=== PATIENT | male | born 1950 | race Caucasian/White ===

== ENCOUNTER 2020-04-26 12:05 | Outpatient (REF) | payer MEDICARE, SELFPAY ==
[2020-04-26 13:14] LABS: MANUAL DIFF FLAG NO
[2020-04-26 13:19] LABS: Basophils Absolute Auto 0.1 X10*3/uL (0.0-0.2); Basophils Percent Auto 0.9 % (0-2); Eosinophils Absolute Auto 0.5 X10*3/uL (0.0-0.4); Eosinophils Percent Auto 6.8 % (0-4); Hematocrit 44.6 % (42-52); Imm Gran Abs Auto 0.01 X10*3/uL (0.00-0.03); Imm Gran Pct Auto 0.2 % (0.0-0.4); Lymphocytes Absolute Auto 1.5 X10*3/uL (1.2-4.9); Lymphocytes Percent Auto 22.6 % (20-40); Mean Corpuscular HGB Conc 33.6 g/dl (31.0-36.0); Mean Corpuscular Hemoglobin 31.3 pg (27.0-33.0); Mean Corpuscular Volume 93.1 fL (80-98); Monocytes Absolute Auto 0.5 X10*3/uL (0.1-1.2); Monocytes Percent Auto 7.3 % (2-11); Neutrophils Absolute Auto 4.1 X10*3/uL (2.0-8.3); Neutrophils Percent Auto 62.2 % (45-73); Platelet Count 198 X10*3/uL (160-400); Red Blood Count 4.79 X10*6/uL (4.60-5.80); Red Cell Distribution Width 12.5 % (11.0-16.0); White Blood Count 6.6 X10*3/uL (4.8-10.8)
[2020-04-26 13:35] LABS: Glucose Urine UA NEG (NEG); Leukocyte Esterase Urine NEG (NEG); Nitrite Urine NEG (NEG); Specific Gravity - Urine 1.025 (1.005-1.025); Urine Blood NEG (NEG); Urine Ketones NEG (NEG); Urine Protein NEG (NEG-TRACE)
[2020-04-26 13:38] LABS: Appearance Urine CLEAR; Color Urine YELLOW
[2020-04-26 14:23] LABS: Folate 17.5 ng/mL (> or = 4.0); Vitamin B12 421 pg/mL (200-900)
[2020-04-26 15:09] LABS: Alanine Aminotransferase 15 U/L (0-40); Albumin Level 4.5 g/dL (3.5-5.0); Alkaline Phosphatase 77 U/L (39-117); Anion Gap 14 (12-20); Aspartate Amino Transferase 21 U/L (5-37); Bilirubin Total 0.6 mg/dL (0.0-1.0); Blood Urea Nitrogen 9 mg/dL (9-16); Calcium 9.3 mg/dL (8.4-10.2); Carbon Dioxide 28 mmol/L (22-29); Chloride 106 mmol/L (96-108); Cholesterol 151 mg/dL; Estimated Glomerular Filt Rate > 60; Glucose Fasting 95 mg/dL (60-99); HDL Cholesterol 54 mg/dL; LDL Cholesterol Calculated 82 mg/dl; Magnesium 1.9 mg/dL (1.6-2.6); Potassium 5.5 mmol/l (3.3-5.1); Sodium 142 mmol/L (135-145); Total Protein 6.9 g/dL (6.5-8.0); Triglycerides 76 mg/dL
[2020-04-26 15:30] LABS: Prostate Specific Antigen Scr 1.44 ng/mL (<0.05-4.0); TSH reflex Free T4 1.42 mIU/mL (0.32-4.0)
== END 2020-04-26 12:06 | disposition home or self-care (01) ==
LOC: HO.LAB 12:05
PROVIDERS: PCP Internal Medicine; Visit Provider Internal Medicine
DX: Z00.00 Encounter for general adult medical examination without abnormal findings (principal); R19.7 Diarrhea, unspecified; E78.00 Pure hypercholesterolemia, unspecified; Z86.79 Personal history of other diseases of the circulatory system; F10.20 Alcohol dependence, uncomplicated; Z12.5 Encounter for screening for malignant neoplasm of prostate
CPT/HCPCS: 36415; 80053; 80061; 81003; 82607; 82746; 83735; 84153; 84443; 85025

== ENCOUNTER 2020-05-02 07:42 | Outpatient (REF) | payer MEDICARE, SELFPAY ==
[2020-05-06 15:47] LABS: Vitamin B6 17.2 ng/mL (2.1-21.7)
[2020-05-08 06:47] LABS: Vitamin B1 9 nmol/L (8-30)
== END 2020-05-02 07:43 | disposition home or self-care (01) ==
LOC: HO.LAB 07:42
PROVIDERS: Visit Provider Internal Medicine
DX: F10.20 Alcohol dependence, uncomplicated (principal)
CPT/HCPCS: 36415; 84207; 84425

== ENCOUNTER → 2020-06-07 13:39 | Outpatient (REF) | payer MEDICARE, SELFPAY ==
--- NOTE | 2020-06-07 13:43 | CA_ITS ---
Transthoracic Echocardiogram Patient (Last, First, Middle): Fuad Robins E Gender: Male Date of : 1950 Age: 70 Procedure Date: 06/07/2020 Procedure Type: Transthoracic Echocardiogram Location: OP Height: 185.42 cm Weight: 95.26 kg BSA: 2.20 m2 Heart Rate: bpm BP: 120 / 80 mmHg Referring MD: Nahum Rodriges MD Symptoms: Z86.79 - Personal history of other diseases of the circulatory system Study Quality: Fair ECG Rhythm: Sinus Conclusions: - The left ventricular systolic function is low normal. The visually estimated ejection fraction is between 50-55%. - Normal right ventricular cavity size and systolic function. - There is mild dilatation of the sinuses of Valsalva and mild dilatation of the ascending aorta. Findings Left Ventricle Normal left ventricular cavity size. There is normal left ventricular wall thickness. The left ventricular systolic function is low normal. The visually estimated ejection fraction is between 50-55%. There is no evidence of regional wall motion abnormalities. Diastolic function is normal for age. Right Ventricle Normal right ventricular cavity size and systolic function. Atria Both atria are normal in size. There is no evidence of interatrial shunt by color Doppler. Aortic Valve There is a normal trileaflet aortic valve. There is no aortic valve stenosis. There is no aortic valve regurgitation. Mitral Valve Normal mitral valve structure and function. There is no mitral valve regurgitation. There is no mitral valve stenosis. Pulmonic Valve The pulmonic valve is likely normal. Tricuspid Valve Normal tricuspid valve structure and function. There is no tricuspid valve regurgitation. Normal right atrial pressure. There is no evidence of pulmonary hypertension. Great Vessels There is mild dilatation of the sinuses of Valsalva and mild dilatation of the ascending aorta. The visualized portions of the pulmonary artery and branches are normal. Venous The inferior vena cava is normal in size and collapses greater than 50% with inspiration. Pericardium/Pleural There is no evidence of pericardial effusion. Prior Study Comparison No prior study available for comparison. Measurements M-Mode Liner Measurements Normals - Women/Men AOV Cusps: 2.80 1.5-2.6 cm/m2 2D Linear Measurements IVSd: 1.04 0.6-0.9/0.6-1.0 cm LVIDd: 5.39 3.9-5.3/4.2-5.9 cm LVIDd Index: 2.45 2.4-3.2/2.2-3.1 cm/m2 LVIDs: 2.74 2.0-3.6 cm LVPWd: 1.02 0.7-1.1 cm Ao Root: 4.20 2.1-3.5 cm LA Diam: 3.40 2.7-3.8/3.0-4.0 cm LAIDs Index: 1.55 1.5-2.3 cm/m2 LV Mass: 267.18 67-162/88-224 g LV Mass Index: 121.44 43-95/49-115 g/m2 LVOT Diam: 2.60 3.0+(-)1.3 cm 2D Systolic Function EF 4C: 57.90 >55% EF 2C: 58.00 >55% EF BiP: 58.30 >55% Mitral Valve MV Pk E: 0.64 MV PK A: 0.69 MV Decel Time: 239.00 E/A: 0.90 E'Lateral: 9.03 E'Medial: 6.31 E/E' Med: 10.10 E/E' Lat: 7.10 PHT: 70.00 MVA PHT: 3.14 Decel [place]: 2.67 Aortic Valve AoV Pk Hossein: 1.04 AoV Pk Grad: 4.00 LVOT LVOT Pk Hossein: 0.81 LVOT Mn Hossein: 0.61 LVOT VTI: 0.16 LVOT Pk Grad: 3.00 LVOT Mn Grad: 2.00 LVOT Diam: 2.60 LVOT Area: 5.31 Diastolic Function MV Pk E: 0.64 MV Pk A: 0.69 E/A: 0.90 E'Medial: 6.31 E/E' Med: 10.10 E' Laterial: 9.03 E/E' Lat: 7.10 Tricuspid Valve TR Pk Hossein: 1.94 TR Pk Grad: 15.00 RA Press: 3.00 RVSP: 18.00 Great Vessels Aorta Ao Root-2D: 4.20 2.0-3.7 cm Sinus of Valsalva: 4.20 2.0-3.5 cm Ao Asc: 3.30 2.1-3.4 cm Ao Arch: 2.60 Pulmonary Valve PV Pk Hossein: 0.66 Peak PV Grad: 2.00 Updated in Other Vendor System with Status of Final [place] MD electronically signed on 06/09/2020 1:40:12 PM with status of Final
== END ==
LOC: HO.CARD 13:39
PROVIDERS: PCP Internal Medicine; Visit Provider Internal Medicine
DX: Z86.79 Personal history of other diseases of the circulatory system (principal)
CPT/HCPCS: 93306

== ENCOUNTER 2020-07-02 13:42 | Outpatient (REF) | payer MEDICARE, SELFPAY ==
[2020-07-02 14:46] LABS: CDIFF Ag Negative (Negative); CDIFF Internal ctrl Dots and bkg OK (V); CDiff Toxin Negative (Negative)
[2020-07-02 16:29] LABS: Leukocytes Stool Qualitative NEGATIVE (NEGATIVE)
== END 2020-07-02 13:43 | disposition home or self-care (01) ==
LOC: HO.LNP 13:42
PROVIDERS: Visit Provider Internal Medicine
DX: R19.7 Diarrhea, unspecified (principal); Z86.79 Personal history of other diseases of the circulatory system
CPT/HCPCS: 87045; 87046; 87177; 87209; 87324; 87449; 89055

== ENCOUNTER 2020-09-02 10:04 | Outpatient (REF) | payer MEDICARE, SELFPAY ==
--- NOTE | ~2020-09-02 | XR_ITS ---
EXAMINATION: XR KNEE, RIGHT CLINICAL INFORMATION: Degenerative changes. COMPARISON: None TECHNIQUE: AP and lateral of the right knee. FINDINGS: There is no fracture or dislocation or destructive process. Chondrocalcinosis involves both the medial lateral menisci. There is no focal joint narrowing or erosive change. There is small suprapatellar effusion. Hoffa's fat pad appears normal. There is spurring at the quadriceps insertion patella and at the insertion patella tendon. The deep infrapatellar recess is preserved. XR/XR knee RT 2V IMPRESSION: 1. Meniscal chondrocalcinosis. Small suprapatellar effusion. 2. Spurring extensor mechanism, origin quadriceps tendon and insertion patella tendon.
[2020-09-02 10:59] LABS: MANUAL DIFF FLAG NO
[2020-09-02 11:14] LABS: Basophils Percent Auto 0.4 % (0-2); Eosinophils Absolute Auto 0.3 X10*3/uL (0.0-0.4); Eosinophils Percent Auto 4.6 % (0-4); Hemoglobin 15.1 g/dl (14.0-18.0); Imm Gran Abs Auto 0.01 X10*3/uL (0.00-0.03); Imm Gran Pct Auto 0.1 % (0.0-0.4); Lymphocytes Absolute Auto 2.3 X10*3/uL (1.2-4.9); Lymphocytes Percent Auto 31.3 % (20-40); Mean Corpuscular HGB Conc 33.6 g/dl (31.0-36.0); Mean Corpuscular Hemoglobin 30.7 pg (27.0-33.0); Mean Corpuscular Volume 91.5 fL (80-98); Monocytes Absolute Auto 0.7 X10*3/uL (0.1-1.2); Monocytes Percent Auto 9.6 % (2-11); Neutrophils Absolute Auto 3.9 X10*3/uL (2.0-8.3); Platelet Count 206 X10*3/uL (160-400); Red Blood Count 4.92 X10*6/uL (4.60-5.80); Red Cell Distribution Width 13.2 % (11.0-16.0); White Blood Count 7.2 X10*3/uL (4.8-10.8)
[2020-09-02 11:31] LABS: Glucose Urine UA NEG (NEG); Leukocyte Esterase Urine NEG (NEG); Nitrite Urine NEG (NEG); PH 5.5 (5.0-8.0); Specific Gravity - Urine >= 1.030 (1.005-1.025); Urine Blood NEG (NEG); Urine Ketones NEG (NEG); Urine Protein NEG (NEG-TRACE)
[2020-09-02 11:32] LABS: Alanine Aminotransferase 29 U/L (0-40); Albumin Level 4.6 g/dL (3.5-5.0); Alkaline Phosphatase 86 U/L (39-117); Anion Gap 13 (12-20); Aspartate Amino Transferase 30 U/L (5-37); Bilirubin Total 0.8 mg/dL (0.0-1.0); Blood Urea Nitrogen 10 mg/dL (9-16); Calcium 9.6 mg/dL (8.4-10.2); Carbon Dioxide 25 mmol/L (22-29); Chloride 107 mmol/L (96-108); Cholesterol 165 mg/dL; Estimated Glomerular Filt Rate > 60; Glucose Random 100 mg/dL (60-115); HDL Cholesterol 54 mg/dL; LDL Cholesterol Calculated 89 mg/dl; Potassium 5.2 mmol/L (3.3-5.1); Sodium 140 mmol/L (135-145); Triglycerides 111 mg/dL
[2020-09-02 11:46] LABS: Free T4 (Free Thyroxine) 0.86 ng/dL (0.71-1.85); Prostate Specific Antigen Scr 1.37 ng/mL (<0.05-4.0); Thyroid Stimulating Hormone 2.19 uIU/mL (0.32-4.0)
[2020-09-02 11:52] LABS: Appearance Urine CLEAR; Color Urine YELLOW
[2020-09-02 12:06] LABS: Folate 13.1 ng/mL (> or = 4.0); Vitamin B12 308 pg/mL (200-900)
[2020-09-02 12:13] LABS: Mucus Urine 2+ /LPF; RBC Urine 0-2 /HPF (0); WBC Urine 0-2 /HPF (0-4)
== END 2020-09-02 10:05 | disposition home or self-care (01) ==
LOC: HO.XRAY 10:04
PROVIDERS: PCP Internal Medicine; Visit Provider Internal Medicine
DX: R39.198 Other difficulties with micturition (principal); E78.00 Pure hypercholesterolemia, unspecified; Z86.79 Personal history of other diseases of the circulatory system
CPT/HCPCS: 36415; 73560; 80053; 80061; 81001; 82607; 82746; 84153; 84439; 84443; 85025

== ENCOUNTER → 2020-09-18 10:49 | Outpatient (BNVA) | payer MEDICARE, SELFPAY | PROVIDERS: PCP Internal Medicine; Visit Provider Orthopaedic Surgery | DX: M22.2X1 Patellofemoral disorders, right knee (principal) | CPT/HCPCS: 99202 ==

== ENCOUNTER 2021-01-09 09:54 | Outpatient (REF) | payer MEDICARE, SELFPAY ==
[2021-01-09 11:03] LABS: Appearance Urine CLEAR; Color Urine YELLOW; Glucose Urine UA NEG (NEG); Leukocyte Esterase Urine NEG (NEG); Nitrite Urine NEG (NEG); Specific Gravity - Urine 1.015 (1.005-1.025); Urine Blood NEG (NEG); Urine Ketones NEG (NEG); Urine Protein NEG (NEG-TRACE)
[2021-01-09 12:17] LABS: RBC Urine 0-2 /HPF (0); WBC Urine 0-2 /HPF (0-4)
[2021-01-09 12:18] LABS: Mucus Urine 1+ /LPF
== END 2021-01-09 09:55 | disposition home or self-care (01) ==
LOC: HO.LAB 09:54
PROVIDERS: PCP Internal Medicine; Visit Provider Internal Medicine
DX: L30.9 Dermatitis, unspecified (principal)
CPT/HCPCS: 81001

== ENCOUNTER 2021-02-18 09:33 | Outpatient (REF) | payer MEDICARE, SELFPAY ==
[2021-02-18 11:23] LABS: C Reactive Protein 0.03 mg/dL (< or = 0.50)
[2021-02-20 12:16] LABS: Gliadin Deamidated IgA Ab <1.0 U/mL; Gliadin Deamidated IgG Ab <1.0 U/mL
[2021-02-20 14:01] LABS: Transglutaminase Ab IgG <1.0 U/mL; Transglutaminase IgA <1.0 U/mL
== END 2021-02-18 09:34 | disposition home or self-care (01) ==
LOC: HO.LAB 09:33
PROVIDERS: PCP Internal Medicine; Referring Provider Internal Medicine; Visit Provider Nurse Practitioner
DX: R19.7 Diarrhea, unspecified (principal); R13.11 Dysphagia, oral phase
CPT/HCPCS: 36415; 83516; 86003; 86140; 99202

== ENCOUNTER 2021-03-05 10:50 | Outpatient (REF) | payer MEDICARE, SELFPAY ==
--- NOTE | ~2021-03-05 | US_ITS ---
EXAMINATION: US PELVIS LIMITED (BLADDER) CLINICAL INFORMATION: Dermatitis, unspecified. COMPARISON: None TECHNIQUE: Real-time imaging of the bladder. FINDINGS: BLADDER: Well distended and normal. Bilateral ureteral jets are demonstrated. Prevoid bladder volume is 186.9 mL. Postvoid bladder volume is 115.4 mL. ADDITIONAL FINDINGS: Prostate volume is normal measuring 12.2 cm. US/US bladder IMPRESSION: Large postvoid residual volume. Normal bilateral ureteral jets. The prostate volume is normal.
== END 2021-03-05 10:51 | disposition home or self-care (01) ==
LOC: HO.US 10:50
PROVIDERS: PCP Internal Medicine; Visit Provider Internal Medicine
DX: L30.9 Dermatitis, unspecified (principal)
CPT/HCPCS: 76857

== ENCOUNTER 2021-05-23 11:00 | Outpatient (RCR) | payer MEDICARE, SELFPAY ==
--- NOTE | 2021-05-16 13:49 | MHC.PT.OD ---
[facility] [place] [facility] [place] [facility] [address] Carolyn Heredia [address] [phone] F: [phone] F: [phone] F: [phone] F: [phone] Physical Therapy Daily Note Diagnosis: PT eval and treat; Unspecified thoracic, thoracolumbar and lumbosacral intervetebral disc disorder signed by Fareed Perry PA-C signed on 02/15/21 [ End ] Date of Surgery: Date of Evaluation: 04/21/21 Date of Treatment: 05/16/21 Treatments to Date: 6 Cancellations to Date: No Shows to Date: Authorized Visits: Insurance End Date: Precautions/ Contraindications:hx cervical fusion Subjective: I woke up with electrifying pain, I notice it when I take a deep breath in the morning. Up until then I thought I was making progress with therapy. Pain Score and Location: Objective Flowsheet: Tests & Measures Exercises Review of cat,child pose, R trunk flexion, figure four for L sidebending/rotation, seated L sidebend stretch for L Lumbar stretches reviewed with patient, good carryover shown, Completed Standing rows, bilateral shoudler extension, lat pulldown with green band x 2 sets 10R with core tuck/core recruitment, emphasis on hip hip hinge functional squat with 3 sets hold x 2 sets 10R. Pt remains challenged with hip hinge- denies sx with activity in office today Education re: lumbar towel roll support for chair Ergonomic set up for desk revviewed feet on ground ENcouragement for walking/moving frequently Encouraged trial of prone lying>prone on elbow Sensation intact. Rocktape applied to R>Llumbar paraspinals (two I strips) Three additional I strips from medial>lateral at site of QL in effort to increase tissue extensibility. Modalities Prone for MHP combo with Select TENS unit lumbar setting intensity 6.0 mA applied to R lumbar region in effort to increase tissue extensbility/reduce mm tension at start of session. Educated in potential ability to obtain for home use- if (+) response. Prone for continuous US 1.5 mart cm2 x 8 minutes 1 MHZ to R QL/ R lumbar region in effort to increase tissue extensibility/reduce pain. Assessment: Pt has attended 6 sessions of PT to date. Pt expressing some improvement with implement of lumbar and trunk stretches however pt expressing sx remain worse in AM hours, I woke up and it was excruciating pain. 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 He has been trialed with treatments TENS, manual therapy, US (first time today), taping, and stretching/strengthening/auto body mechanic education. Pt may benefit from xray ?OA/DJD as he has expressed ongoing sx despite implementing stretching program. He was encouraged to increase frequency of stretching to 2x/ daily states has only been performing 1x daily despite education given to staggered activity through the day. Pt expressing ongoing chronic daily diarrhea and reports limited relief with pain medication. He expresses sx worsening with deep breathing and coughing mostly on R lower quadrant but sometimes expresses bilaterally. He was advised to make a follow up appt with Dr. Alexander's office due to his level of frustration with current status. He has been educated re: today's plan to encourage follow up with effort to continue PT, increasing compliance with stretching program. Pt educated sx of mm tightness will not improve with stretching once, requires repeated consistent program to make gains. He denies sx radiating down the buttocks, leg, (-) SLR sx. Appears to be managing therex in the office during appointments with good tolerance but does verbalize severe sx impacting him first thing in AM the medication helps some. He has been encouraged to trial gentle flexibility program in AM prior to attempting to standing up. Thank you for your referral. 05/09/21 Pt expressing persistent sx which are are noted to be present despite trial of stretching. New stretches added today. 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 Pt verbalized, I can tell I need to stretch more. Due to persistent sx, pt trialed in prone lying with prone press up progression with good tolerance. Pt also trialed in mechanical lumbar traction (no previous hx lumbar or thoracic surgery, HNP sx at time of injury) to ease ongoing R sided lumbar sx due to persistent nature, mechanism of injury, and length of sx. Issued prone lying and prone press up for HEP option. 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 Pt expressing initially had severe pain in his back a few months ago, stating much improvement overall since onset. 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 Pt exhibits signs and sx consistent with a R sided improving lumbar strain. Pt exhibits decreased flexibility of HS, impaired length of trunk extensors in both thoracic and lumbar regions. Pt lacks core stabilization/flexibility program and demonstrated challenge of functional squat technique when initially screened for movement analysis. Pt exhibits (+) prone instability testing and is an excellent candidate for implementing a lumbar/hip stabilization and flexibility program. Today he expresses central lower neck pain at base of C7 but his AROM is functional in nature which he states is improving since onset (hx cervical fusion). He was initiated in written HEP program SL trunk rotation, LBTR, and gentle open books in SL stretches with good tolerance. He was educated re: the log roll technique and advised to begin initiation of abdominal recruitment with movement patterns. [ End ] PT Plan: Trial increasing frequency of home program for flexibility, encouraged follow up with PCP office Dr. Alexander Short Term Goals: 1. Reduce back pain by 25%. (Met but inconsistently) 2. Initiate good carryover of proper body mechanics. 3. Initiate flexibility program for spine/hips. (Met) 4. Demonstrate log roll technique and golfer's lift. [employer] Clerk Goals: 1. Reduce back pain by 50%. 2. I HEP for flexibility/strengthening program. 3. Demonstrate good functional squat technique and mechanics. 4. Resume coaching/recreational activities MOD I. [ End ] Electronically signed by: Sonia Acevedo PT, DPT
== END 2021-10-31 13:39 | disposition home or self-care (01) ==
LOC: HO.PTWFD 11:00
PROVIDERS: PCP Internal Medicine; Visit Provider Physician Assistant
DX: M51.9 Unspecified thoracic, thoracolumbar and lumbosacral intervertebral disc disorder (principal)
CPT/HCPCS: 97012; 97014; 97035; 97110; 97140; 97161; 97530; 97535

== ENCOUNTER 2021-05-28 14:07 | Outpatient (REF) | payer MEDICARE, SELFPAY ==
--- NOTE | ~2021-05-28 | FL_ITS ---
EXAMINATION: XR BARIUM SWALLOW CLINICAL INFORMATION: Dysphasia COMPARISON: None TECHNIQUE: Modified barium swallow with speech pathologist FINDINGS: Patient swallowed multiple consistencies from thin liquid to barium coated cookie. There was no evidence of nasopharyngeal reflux or tracheal aspiration. FLUOROSCOPY TIME: 1.5 minutes DOSE AREA PRODUCT: 1.689 Gy-cm2 (rayo-centimeter squared) FL/FL barium swallow modified IMPRESSION: Unremarkable examination. Please refer to speech pathology report for details.
--- NOTE | 2021-05-30 13:18 | MHC.SL.IMP ---
Date of Plan of Treatment: 05/28/21 Onset of Symptoms/Illness: 05/28/91 Date Treatment Started: 05/28/21 Admitting Diagnosis: Comorbidities: Alcoholism Anxiety Decreased urine stream Dysuria Eczema GERD Atrial fibrillation Skin cancer Insomnia Intermittent diarrhea Knee pain- right Nail abnormality Overweight Pure hypercholesterolemia SURGICAL HX: Bunionectomy of left great toe Status post cervical spinal fusion Status post repair of ventral hernia Primary Speech & Language Diagnosis: R13.12 Oropharyngeal Phase Dysphagia Reason for Today's Visit: 93934 Modified Barium Swallow Study Pre-evaluation Dietary Consistencies: Regular Pre-evaluation Liquid Consistency: Thin Pre-evaluation Medication Administration: Whole with Liquid Medical History: Modified Barium Swallow Study Fluoroscopic Evaluation of Swallowing Function CPT Code 30386 Evaluation Year: 2021 Reason for Study: Patient reports globus sensation. Referring Physician: Ale Núñez NP Evaluating Clinician: Simran Colon MA, CCC-COO Study Number: 1 Patient Name: Fuad Robins Status: Outpatient, Ambulatory Age: 71 Gender: Male MEDICAL HISTORY: Year of Onset or Diagnosis: 2021 Comorbidities: Alcoholism Anxiety Decreased urine stream Dysuria Eczema GERD Atrial fibrillation Skin cancer Insomnia Intermittent diarrhea Knee pain- right Nail abnormality Overweight Pure hypercholesterolemia SURGICAL HX: Bunionectomy of left great toe Status post cervical spinal fusion Status post repair of ventral hernia Current (pre-evaluation) Intake/Diet: Route: PO Diet Grade: Regular Liquid Consistencies: Thin Pre-Study Functional Oral Intake Scale (FOIS): 7- Total oral intake with no restrictions Pain: None reported at time of study SUBJECTIVE: Patient is a 71 year old male who attended this exam unaccompanied. Patient had recent appointment with G.I. specialist- He complained of dysphagia, which has persisted ?many decades.? He describes food getting stuck at sternal notch. He reports that this happens exclusively when eating steak with cream sauce. The sensation can persist for 30-40 minutes and at times, he coughs food back up. He reports, ?Sometimes drinking liquids to force it down makes it worse.? Patient denies pain, but states that this is uncomfortable. He reports onset 30 years ago. Oral Motor Exam Facial Symmetry: Symmetrical Mouth Occlusion: Normal Oral-Facial Teeth Characteristics: Intact/Normal Oral-Facial Lip Pucker Description: Normal Oral-Facial Smile (Lips) Description: Normal Oral-Facial Puff Cheeks Description: Normal Tongue Size: Normal Tongue Excursion Description: Normal Tongue Range of Movement Description: Normal Tongue Speed of Movement Description: Normal Tongue Strength of Movement (against opposing pressure): Normal Tongue Movement Characteristics: Normal/Absent Is patient able to manage secretions?: Yes Food and Liquid Trials: Oral Impairment: Lip Closure: Did not test Oral Impairment: Tongue Control During Bolus Hold: 2=Posterior escape of less than half of bolus Oral Impairment: Bolus Preparation/Mastication: Oral Impairment: Bolus Transport/Lingual Motion: 0=Brisk tongue motion Oral Impairment: Oral Residue: 0=Complete oral clearance Oral Impairment:Initiation of Pharyngeal Swallow: 3=Bolus head in pyriforms Pharyngeal Impairment: Soft Palate Elevation: 0=No bolus between soft palate (SP)/pharyngeal wall (PW) Pharyngeal Impairment: Laryngeal Elevation: 0=Complete superior movement of thyroid cartilage (see description) Pharyngeal Impairment: Anterior Hyoid Excursion: 0=Complete anterior movement Pharyngeal Impairment: Epiglottic Movement: 0=Complete inversion Pharyngeal Impairment: Laryngeal Vestibular Closure:: 1=Incomplete: narrow column air/contrast in laryngeal vestibule Pharyngeal Impairment: Pharyngeal Stripping Wave: 0=Present: complete Pharyngeal Impairment: Pharyngeal Contraction: Did not test Pharyngeal Impairment: Pharyngoesophageal Segment Openin=Complete distension and complete duration: no obstruction of flow Pharyngeal Impairment: Tongue Base (TB) Retraction: 2=Narrow column of contrast/air between TB and posterior PW Pharyngeal Impairment: Pharyngeal Residue: 1=Trace residue within or on pharyngeal structures Pharyngeal Impairment: Esophageal Clearance Upright Position: Did not test Impressions and Recommendations Clinical Observations: OBJECTIVE: Time-out: performed at 02:45 Evaluation Start: 02:30; Stop: 02:40 Patient Positioning: Seated 70-90 degrees Viewing Planes: LATERAL ONLY Contrast: MBSImP? Standardized Protocol using commercially prepared, standardized Barium viscosities, including: Varibar? THIN LIQUID (40% w/v, <15 cps) , 1/2 Shortbread Cookie (1 x1 x.25 ) MBSImP ID: [id number] MBSImP Results: Lip closure for intraoral bolus containment could not be assessed due to logistical reasons not related to physiologic impairment. Tongue control during bolus hold resulted in posterior escape of less than half of the bolus. Bolus preparation and mastication resulted in timely and efficient chewing and mashing. Bolus transport/lingual motion was with brisk tongue motion. Oral residue was not observed. There was complete oral clearance. Initiation of the pharyngeal swallow occurred when the bolus head was in the pyriform sinuses. Soft palate elevation resulted in no bolus between the soft palate and the pharyngeal wall. Laryngeal elevation demonstrated complete superior movement of the thyroid cartilage with complete approximation of the arytenoids to the epiglottic petiole. Anterior hyoid excursion demonstrated complete anterior movement. Epiglottic movement resulted in complete inversion. Laryngeal vestibular closure was incomplete, with a narrow column of air/contrast noted within the laryngeal vestibule at the height of the swallow. Pharyngeal stripping wave was present and complete. Pharyngeal contraction could not be determined due to logistical reasons not related to physiologic impairment. Pharyngoesophageal segment opening was completely distended for complete duration with no obstruction of bolus flow. Tongue base retraction allowed a narrow column of contrast or air between the retracted tongue base and the posterior pharyngeal wall. Pharyngeal residue was a trace within or on pharyngeal structures. Esophageal clearance in the upright position could not be assessed due to logistical reasons not related to physiologic impairment. Oral Impairment Score: 5 (absence of score, component 1) Pharyngeal Impairment Score: 3 (absence of score, component 13) Esophageal Impairment Score: --- (absence of score, component 17) Laryngeal Penetration and Aspiration: Flash penetration- contrast coated posterior surface of epiglottis during one instance while taking chain sips of thin barium Structural Abnormalities Noted: Cervical Hardware noted, but had no functional significance. ASSESSMENT: Clinician Assessment: This exam was conducted by a multidisciplinary team which included auto electrical technician, radiologist, and speech-language pathologist. Patient was seated in chair at optimal 90 degree position for lateral view only. Patient trialed the following liquid and solid consistencies: 5 mL thin liquid barium, individual cup sip with bolus hold thin liquid barium, sequential cup sip thin liquid barium, pureed solid (mixture applesauce with barium paste), ground solid (mixture chicken salad with barium paste), and regular solid (Coral Doone cookie coated with barium paste). Note premature posterior escape of trace amount liquid, which pooled in valleculae and did not enter airway. Timely and efficient mastication, with complete oral recollection. Brisk anterior-posterior lingual transit of bolus. Delayed pharyngeal swallow trigger. No nasopharyngeal reflux. Complete superior movement of thyroid cartilage with complete anterior hyoid movement and complete epiglottic inversion. Note one instance contrast coated posterior surface of epiglottis when patient took quick chain sips of liquid. No evidence of tracheal aspiration with solids and liquids. Complete pharyngeal stripping wave. No obstruction of flow through pharyngoesophageal segment opening. Trace residue in valleculae and pyriform sinuses. Noted cervical hardware, which did not appear to have functional significance during this exam. Liquid Intake Recommendation: Thin Liquid Intake Strategies: Small Sips Dietary Recommendations: Regular Medication Administration: Whole with Liquid Compensatory Strategies Recommended: Sitting Upright (90 deg) Small Bites and Sips Rate of Ingestion Change Supervision during eating and or drinking: None Needed Recommendation for Speech Therapy: NA:Typical Evaluation PLAN: Intake Recommendations: Route: PO Diet Grade: Regular Liquid Consistencies: Thin Post-Study Functional Oral Intake Scale (FOIS): 7- Total oral intake with no restrictions Recommend patient to continue unmodified diet REGULAR solids/THIN liquids, pills WHOLE with liquid. Patient may consider avoiding food causing him trouble (i.e. steak). Recommend f/u with Gastroenterology. Therapy Recommendations: Therapy will be discontinued Prognosis for Improvement: The prognosis for the patient to meet nutritional needs by mouth is good based on degree of impairment. Clinician - Supplemental, Miscellaneous Communication: It is important to note MBSS objective studies are snapshots in time and Patient function might vary with factors such as time of day or concomitant medical conditions. For this reason, the final treatment plan for this patient should rest with their medical care team. Additional recommendations should be considered with the totality of the Patient in mind. Thank for the opportunity to participate in the care of this patient. If you have any questions about the content of this report, please contact the [facility] at [facility]. Education: Education regarding findings from today's study and plans for therapy were provided to Patient only through Verbal Instruction. Understanding was expressed by the Patient only. Homogenizer Operator Clinician/Clinical Fellow: No Supervisory Statement: N/A Speech Language Pathologist: Simran Colon M.A., CCC-COO
== END 2021-05-28 14:08 | disposition home or self-care (01) ==
LOC: HO.XRAY 14:07
PROVIDERS: Visit Provider Nurse Practitioner
DX: R13.11 Dysphagia, oral phase (principal)
CPT/HCPCS: 74230; 92611

== ENCOUNTER → 2021-11-21 10:10 | Outpatient (BNVA) | payer MEDICARE, SELFPAY | PROVIDERS: PCP Internal Medicine; Visit Provider Nurse Practitioner | DX: K57.92 Diverticulitis of intestine, part unspecified, without perforation or abscess without bleeding (principal); R13.11 Dysphagia, oral phase; R19.7 Diarrhea, unspecified; K21.9 Gastro-esophageal reflux disease without esophagitis | CPT/HCPCS: 99212 ==

== ENCOUNTER 2021-12-16 13:13 | Outpatient (REF) | payer MEDICARE, SELFPAY ==
[2021-12-17 05:52] LABS: Syphilis Screen Nonreactive (Nonreactive)
== END 2021-12-16 13:14 | disposition home or self-care (01) ==
LOC: HO.LAB 13:13
PROVIDERS: PCP Internal Medicine; Visit Provider Nurse Practitioner
DX: R13.11 Dysphagia, oral phase (principal); K57.92 Diverticulitis of intestine, part unspecified, without perforation or abscess without bleeding; R19.7 Diarrhea, unspecified; K21.9 Gastro-esophageal reflux disease without esophagitis; Z72.51 High risk heterosexual behavior
CPT/HCPCS: 36415; 86780; 99212

== ENCOUNTER 2022-02-05 09:00 | Day surgery (SDC) | payer OTHER, SELFPAY ==
[2022-01-30 13:45] VITALS: BMI 27.7
[2022-01-30 13:56] VITALS: BMI 27.7
--- NOTE | 2022-02-04 08:24 | HO.ANESPROP2 ---
Documented by User: Bonnie Machado NP 02/04/22 08:29 HPI - Anesthesia Eval Consult details Narrative: 71yo M for Colonoscopy afib, no anticoag +ETOH PMFSH Active Problems Active Problems: All Active Problems (Updated 01/30/22 @ 14:00 by Astrid Pierce, GAYLE) Colon cancer screening (Acute) Decreased urine stream (Acute) Knee pain, right (Acute) Nail abnormality (Acute) Patellofemoral pain syndrome of right knee (Acute) Generalized anxiety disorder (Acute) Eczema (Acute) History of skin cancer (Acute) Diarrhea (Acute) Oral phase dysphagia (Acute) Colon cancer screening (Acute) Urinary retention (Acute) Back pain (Acute) Neck pain (Acute) Trigger finger (Acute) Diarrhea (Acute) Facial basal cell cancer (Acute) Diverticulitis (Acute) Unprotected sexual intercourse (Acute) GERD (gastroesophageal reflux disease) (Acute) Anxiety (Acute) Overweight (BMI 25.0-29.9) (Acute) History of atrial fibrillation (Acute) Pure hypercholesterolemia (Acute) Insomnia (Acute) Alcoholism /alcohol abuse (Acute) Past Medical History Medical History (Updated 01/30/22 @ 14:00 by Astrid Pierce RN) Alcoholism /alcohol abuse Anxiety Erectile dysfunction GERD (gastroesophageal reflux disease) History of atrial fibrillation Insomnia Obstructive sleep apnea Overweight (BMI 25.0-29.9) Paroxysmal atrial fibrillation Pure hypercholesterolemia Family History Family History Father Stroke Coronary artery disease Surgical History Surgical History (Updated 12/16/21 @ 12:49 by PARMINDER Hassan) History of bunionectomy of left great toe History of esophagogastroduodenoscopy (EGD) Hx of colonoscopy Status post cervical spinal fusion Status post repair of ventral hernia Social History Social History Housing: House Alcohol intake: current Alcohol intake frequency: former alcohol drinker Alcohol type: wine Patient Tobacco Use Status: Former Tobacco user Quit Date: 1975 Tobacco use type: Cigarette e-Cigarette/Vaping Use: Never Used Second Hand Smoke Exposure: No service: No Current occupational status: employed 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 [employer] Cognitive needs: No Hearing needs: No Vision needs: No Meds Allergies Allergy/AdvReac Type Severity Reaction Status Date / Time sertraline AdvReac Intermediate anxiety Verified 12/16/21 12:46 zolpidem AdvReac Intermediate sleepwalkin Verified 12/16/21 12:46 g Home Medications Medication Instructions Recorded Confirmed Last Taken Type multivitamin 1 tab PO DAILY 02/18/21 01/30/22 Unknown History coenzyme Q10 10 mg capsule 10 mg PO TID 12/16/21 01/30/22 Unknown History Exam Exam Date and Time: February 04, 2022 0824 Height,Weight and Vital Signs: Height 6 ft 1 in Weight 95.254 kg Narrative Narrative: ECHO 2020 Conclusions: - The left ventricular systolic function is low normal.? The ? ? visually estimated ejection fraction is between 50-55%.? - Normal right ventricular cavity size and systolic function.? ? - There is mild dilatation of the sinuses of Valsalva and mild ? dilatation of the ascending aorta. ? Assessment and Plan Assessment Anesthesia Assessment: Chart Reviewed Documented by User: Lv Wild MD 02/05/22 17:53 [facility] Past Medical History Medical History (Updated 01/30/22 @ 14:00 by Astrid Pierce RN) Alcoholism /alcohol abuse Anxiety Erectile dysfunction GERD (gastroesophageal reflux disease) History of atrial fibrillation Insomnia Obstructive sleep apnea Overweight (BMI 25.0-29.9) Paroxysmal atrial fibrillation Pure hypercholesterolemia Functional capacity: independent ambulation Family History Family History Father Stroke Coronary artery disease Family history of problems with anesthesia: No Surgical History Surgical History (Updated 12/16/21 @ 12:49 by PARMINDER Hassan) History of bunionectomy of left great toe History of esophagogastroduodenoscopy (EGD) Hx of colonoscopy Status post cervical spinal fusion Status post repair of ventral hernia History of Problems with Anesthesia: No Social History Social History Housing: House Alcohol intake: current Alcohol intake frequency: former alcohol drinker Alcohol type: wine Patient Tobacco Use Status: Former Tobacco user Quit Date: 1975 Tobacco use type: Cigarette e-Cigarette/Vaping Use: Never Used Second Hand Smoke Exposure: No service: No Current occupational status: employed 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 [employer] Cognitive needs: No Hearing needs: No Vision needs: No Meds Allergies Allergy/AdvReac Type Severity Reaction Status Date / Time sertraline AdvReac Intermediate anxiety Verified 12/16/21 12:46 zolpidem AdvReac Intermediate sleepwalkin Verified 12/16/21 12:46 g Home Medications Medication Instructions Recorded Confirmed Last Taken Type multivitamin 1 tab PO DAILY 02/18/21 01/30/22 Unknown History coenzyme Q10 10 mg capsule 10 mg PO TID 12/16/21 01/30/22 Unknown History Exam Airway Mallampati Class: III TM Dist: >3cm Neck ROM: Full Loose/Missing/Broken Teeth: Yes (Chipped front upper tooth ) Heart: S1,S2 Lungs: b/l breath sounds Assessment and Plan Assessment Anesthesia Assessment: Anesthesia Plan Discussed Final Anesthetic Review Family History of Problems with Anesthesia: No History of Problems with Anesthesia: No NPO: Yes ASA Class: II Final Preanesthetic Review: Meds/Allgs Chart Reviewed, Consent Obtained/Reviewed and Anes Risks/Benef Reviewed Patient Risk: Intermediate Procedure Risk: Intermediate Anesthetic Plan Anesthetic Plan: MAC: Disposition: Standard PACU
[2022-02-05 09:15] VITALS: BP 143/88; PULSE 76; RESP 18; TEMP 36.3; O2SAT 97
[2022-02-05 09:17] VITALS: BMI 26.5
[2022-02-05] MEDS: Lactated Ringers 1,000 ML 100 ML IVCONT (09:34)
--- NOTE | 2022-02-05 09:36 | MHC.SHP ---
Pre-Procedural Eval Section A Date of Service: 02/05/22 Section B Chief Complaint: Diarrhea, Relevant Family History (Specify if Yes): No Relevant Social History: Alcohol Use Present Medications: see Short Stay Collaborative assessment Medical History: Significant History (Alcoholism /alcohol abuse Anxiety Erectile dysfunction GERD (gastroesophageal reflux disease) History of atrial fibrillation Insomnia Obstructive sleep apnea Overweight (BMI 25.0-29.9) Paroxysmal atrial fibrillation Pure hypercholesterolemia) History of Previous Operations: Relevant previous surgery/procedure and date(s) (History of bunionectomy of left great toe History of esophagogastroduodenoscopy (EGD) Hx of colonoscopy Status post cervical spinal fusion Status post repair of ventral hernia) Allergies: Allergies Allergy/AdvReac Type Severity Reaction Status Date / Time sertraline AdvReac Intermediate anxiety Verified 12/16/21 12:46 zolpidem AdvReac Intermediate sleepwalkin Verified 12/16/21 12:46 g Review of Systems Sugical H&P ROS: Negative: Constitution, Cardiovascular, Respiratory, Neurological, Psychiatric, Hem-Onc, Allergic/Immunologic, Gastrointestinal, Genitourinary, Musculoskeletal, Integumentary, Endocrine and Eyes/Ears/Nose/Throat Exam Surgical H&P Exam: Normal: HEENT, Normal: Heart, Normal: Lungs, Normal: Extremities, Normal: Abdomen, Normal: Skin and Normal: Neurological Plan Diagnosis/Plan: Unchanged I have reviewed the history and physical and performed a pertinent physical examination on my patient. No changes have occurred unless specified.
--- NOTE | 2022-02-05 09:53 | W.PM.OPN ---
Operative Note Operative Note Date of Service: 02/05/22 Narrative: Operative Information Procedure Description: Colonoscopy Indication: diarrhea Anesthesia: MAC COLONOSCOPY Instrument: Olympus variable stiffness pediatric scope 190L Colonoscopy Monitoring: Vital signs and clinical assessment, continuous EKG monitoring, Pulse oximetry, Carbon Dioxide monitoring and blood pressure monitoring were done throughout the procedure. Colon withdrawal time was 13 minutes. Procedure: The patient was placed in the left lateral decubitis position and pre-procedure medications were administered. After a digital rectal examination of the ano-rectum, the video colonoscope was inserted into the rectum and advanced through the colon to the cecum/TI. The colonoscope was slowly withdrawn in a retrograde panoramic fashion and the colon mucosa was carefully examined including a retroflexed view of the rectum. Findings and interventions are described below. Procedure Difficulty: easy Findings: Terminal Ileum-normal, bx taken random colon bx taken Cecum:normal, small area of non specific erythema noted Ascending Colon: x3 sessile polyps noted, 8-10 mm. x2 removed with cold forceps and x 1 removed with cold snare Transverse Colon -normal Descending Colon:normal Sigmoid Colon: moderate diverticulosis Rectum: Retroflexion with small internal hemorrhoids, grade I Anorectum - normal Colon preparation: [place] Bowel Preparation Scale Right colon; 2 Transverse colon: 3 Left colon; 3 (0 = Unprepared colon segment with mucosa not seen due to solid stool that cannot be cleared. 1 = Portion of mucosa of the colon segment seen, but other areas of the colon segment not well seen due to staining, residual stool and/or opaque liquid. 2 = Minor amount of residual staining, small fragments of stool and/or opaque liquid, but mucosa of colon segment seen well. 3 = Entire mucosa of colon segment seen well with no residual staining, small fragments of stool or opaque liquid) Impression and Post Procedure Diagnosis: polyps internal hemorrhoids diverticular disease Plan: High fiber diet leaflet Avoid straining at stool, epsom salts and sitz bath, anusol supps or cream Repeat Colonoscopy in 3-5 years due to adenomatous appearing polyps or earlier if clinically indicated if bx neg and stool samples neg (sent today for c diff and GI panel) then recommend EGD, and pancreas evaluation Above findings were reviewed with the patient and relevant handouts were provided if indicated.
[2022-02-05 10:25] VITALS: BP 107/64; PULSE 76; RESP 20; TEMP 36.4; O2SAT 97
[2022-02-05 10:40] VITALS: BP 131/82; PULSE 76; RESP 20; TEMP 37.1; O2SAT 95
[2022-02-05 12:16] LABS: CDiff Gene PCR NEGATIVE (Negative)
[2022-02-05 14:17] LABS: Adenovirus F 40/41 Not Detected (Not Detect.); Astrovirus Not Detected (Not Detect.); Campylobacter Not Detected (Not Detect.); Cryptosporidium Not Detected (Not Detect.); Cyclospora cayetanensis Not Detected (Not Detect.); E. coli EAEC Not Detected (Not Detect.); E. coli EPEC Not Detected (Not Detect.); E. coli ETEC Not Detected (Not Detect.); E. coli STEC Not Detected (Not Detect.); Entamoeba histolytica Not Detected (Not Detect.); Giardia lamblia Not Detected (Not Detect.); Norovirus GI/GII Not Detected (Not Detect.); Plesiomonas shigelloides Not Detected (Not Detect.); Rotavirus A Not Detected (Not Detect.); Salmonella Not Detected (Not Detect.); Sapovirus Not Detected (Not Detect.); Shigella sp./EIEC Not Detected (Not Detect.); Vibrio Not Detected (Not Detect.); Vibrio Cholerae Not Detected (Not Detect.); Yersinia enterocolitica Not Detected (Not Detect.)
== END 2022-02-05 11:16 | disposition home or self-care (01) ==
PROVIDERS: PCP Internal Medicine; Visit Provider Internal Medicine Gastroenterology
PROC: 0DJD8ZZ Inspection of Lower Intestinal Tract, Via Natural or Artificial Opening Endoscopic (ICD-10-PCS; CPT 45378; principal; 2022-02-05 10:00)
DX: R19.7 Diarrhea, unspecified (principal); D12.2 Benign neoplasm of ascending colon; K57.30 Diverticulosis of large intestine without perforation or abscess without bleeding; Z87.19 Personal history of other diseases of the digestive system; K64.0 First degree hemorrhoids; K21.9 Gastro-esophageal reflux disease without esophagitis; F10.20 Alcohol dependence, uncomplicated; F41.1 Generalized anxiety disorder; N52.9 Male erectile dysfunction, unspecified; Z72.51 High risk heterosexual behavior; E78.00 Pure hypercholesterolemia, unspecified; E66.3 Overweight; Z68.27 Body mass index [BMI] 27.0-27.9, adult; Z98.890 Other specified postprocedural states; Z87.891 Personal history of nicotine dependence
CPT/HCPCS: 45385; 45380; 87493; 87507; 88305; J2250

== ENCOUNTER 2024-07-20 14:16 | Outpatient (REF) | payer OTHER, SELFPAY ==
[2024-07-20 15:43] LABS: MANUAL DIFF FLAG NO
[2024-07-20 15:49] LABS: Basophils Percent Auto 0.5 % (0-2); Eosinophils Absolute Auto 0.2 X10*3/uL (0.0-0.4); Eosinophils Percent Auto 2.3 % (0-4); Hematocrit 43.2 % (42.0-52.0); Hemoglobin 14.7 g/dl (14.0-18.0); Imm Gran Abs Auto 0.01 X10*3/uL (0.00-0.03); Imm Gran Pct Auto 0.2 % (0.0-0.4); Lymphocytes Absolute Auto 1.5 X10*3/uL (1.2-4.9); Lymphocytes Percent Auto 22.7 % (20-40); Mean Corpuscular Hemoglobin 31.6 pg (27.0-33.0); Mean Corpuscular Volume 92.9 fL (80.0-98.0); Mean Platelet Volume 10.7 fL (9.4-12.4); Monocytes Absolute Auto 0.5 X10*3/uL (0.1-1.2); Monocytes Percent Auto 8.1 % (2-11); Neutrophils Absolute Auto 4.4 x10*3/uL (2.0-8.3); Neutrophils Percent Auto 66.2 % (45-73); Platelet Count 197 X10*3/uL (160-400); Red Blood Count 4.65 X10*6/uL (4.60-5.80); Red Cell Distribution Width 13.2 % (11.0-16.0); White Blood Count 6.7 X10*3/uL (4.8-10.8)
[2024-07-20 16:27] LABS: Alanine Aminotransferase 20 U/L (0-40); Albumin Level 4.6 g/dL (3.5-5.0); Alkaline Phosphatase 84 U/L (39-117); Anion Gap 12 (12-20); Aspartate Amino Transferase 29 U/L (5-37); Bilirubin Total 0.8 mg/dL (0.0-1.0); Blood Urea Nitrogen 9 mg/dL (9-16); C Reactive Protein < 0.10 mg/dL (< or = 0.50); Calcium 9.5 mg/dL (8.4-10.2); Carbon Dioxide 27 mmol/L (22-29); Chloride 107 mmol/L (96-108); Estimated Glomerular Filt Rate > 60; Glucose Random 100 mg/dL (60-115); Potassium 4.2 mmol/L (3.3-5.1); Sodium 142 mmol/L (135-145)
[2024-07-20 16:31] LABS: Erythrocyte Sedimentation Rate 2 MM/HR (0-15)
[2024-07-20 16:41] LABS: Thyroid Stimulating Hormone 2.37 uIU/mL (0.32-4.0)
--- OUTSIDE RECORDS SUMMARY | 2024-07-20 16:43 | XMS_ITS | Encounter Summary ---
Author Organization [facility] Address [address] [place] [address] Care Team Providers Care Wildlife Veterinarian Name Role Phone Anup Prince MD Primary Care Provider [phone] Encounter Details Date Type Department Care Team (Late st Contact Info) Description 06/30/2013 Scanned Document [facility] General Surgery [place] Frank Heredia. [address] [place], [place] [id number] Stuart Richard MD [address] [place] [address] Social History Tobacco Use Types [...] on filedocumented in this encounter Care Teams Wildlife Veterinarian Relationship Specialty Start Date End Date Anup Prince MD PCP - General Internal Medicine 06/18/13 documented as of this encounter
--- OUTSIDE RECORDS SUMMARY | 2024-07-20 16:43 | XMS_ITS | Clinical Summary ---
Author Organization [address] Address [address] [place] [id number] Care Team Providers Care Distance Learning Unit Leader Name Role Phone Anup Prince MD Primary Care Provider [phone] Allergies No known active allergies Medications * [...] this topic Medical Devices Implanted Type Area Tension Worker Device Identifier Shelf Expiration Date Model / Serial / Lot Mesh P[employer]et[employer] Progrip [id number] - Sn/A Implanted:Qty: 1 on 07/11/2013 by Stuart Richard MD at [address] Mesh [employer] [id number] / N/A / [id number] Procedures Procedure Name Priority Date/Time Associated Diagnosis Comments COLONOSCOPY (IMAGES) Routine 06/21/2013 7:20 AM EST COMPREHENSIVE METABOLIC PANEL Routine 06/20/2013 12:40 PM EST CHOLESTEROL, TOTAL Routine 06/20/2013 12 :40 PM EST from Last 3 Months or Most Recently Relevant to Health Maintenance Results * Colonoscopy (06/21/2013 7:20 AM EST) [facility] Patient Name: Fuad Robins ? Gender: [...] saturations ? were monitored continuously. The -[id number] was ? introduced through the anus and [...] Procedure Code(s): ?? --- Professional --- ? 84559, Colonoscopy, flexible, proximal to splenic ? flexure; with biopsy, single or multiple Diagnosis Code(s): ?? --- Professional --- ? V76.51, Special screening for malignant neoplasms of ? colon ? 211.3, Benign neoplasm of colon ? 455.0, Internal hemorrhoids without mention of ? complication ? 562.10, Diverticulosis of colon (without mention of ? hemorrhage) CPT (R) 2012 [employer]. All Rights Reserved. The codes documented in this report are preliminary and upon soft hat binder review may be revised to meet current compliance requirements. _ Cade Sosa MD 06/21/2013 11:38 AM This report has been signed electronically. Number of Addenda: 0 Note Initiated On: 06/21/2013 7:20 AM [facility] 06/21/2013 7:20 AM EST us Anup Prince MD GI PROCEDURE ORDERABLES Final Result Performing Organization Address City/[facility]/ZIP Co de Phone Number [facility] * Cholesterol, total (06/20/2013 12:40 PM EST) Cholesterol, Total 154 125 - 200 mg/dL [facility] 06/20/2013 12:4 0 PM EST 06/20/2013 12:46 PM EST Narrative [facility] - 06/23/2013 12:[address] RICHARD, CC DR SOSA FASTING Resulting Agency Comment Performing Organization Information: ?Site ID: [id number] ?Name: [facility] ?Address: [address] [place] [address] [place] [address] ?Director: Sophie Nunez M.D. us Anup Prince MD LAB BLOOD ORDERABLES Final Re sult Performing Organization Address [facility]/ZIP Co de Phone Number [facility] [address] [place] [address] * Comprehensive metabolic panel (06/20/2013 12:40 PM EST) Glucose 92 65 - 99 mg/dL [facility] Comment: ? Fasting reference interval BUN 14 7 - 25 mg/dL [facility] Creatinine 1.07 0.70 - 1.25 mg/dL [facility] Comment: For patients >49 years of age, the reference limit for Creatinine is approximately 13% higher for people identified as -[place]. eGFR 74 > OR = 60 mL/min/1 [...] Performing Organization Information: ?Site ID: [id number] ?Name: [facility] ?Address: [address] [place] [id number] ?Director: Sophie Nunez M.D. Anup Prince MD LAB BLOOD ORDERABLES Final Re sult [facility] [address] [place] [address] from Last 3 Months or Most Recently Relevant to Health Maintenance Insurance [employer] [place] Member Subscriber Plan / Payer (Ef fective 2024-Present) Name:Julienne Fuad Carol Relation to Subscriber:Self Name:Fuad Robins Payer ID:[id number] Group ID:Not on file Type:Not on file Address: [address] [place] [id number] [place] [facility] [place]ID [place] Advance Directives * Full Interventions (Latest Code Status on File) Date Activated Date Inactivated Comments 07/11/2013 8:57 AM 07/11/2013 2:52 PM Care Teams Distance Learning Unit Leader Relationship Specialty Start Date End Date Anup Prince MD PCP - General Internal Medicine 06/18/13
--- OUTSIDE RECORDS SUMMARY | 2024-07-20 16:43 | XMS_ITS | Clinical Summary ---
Author Organization [facility] Address [address] [place] [address] Care Team Providers Care Panel Laminator Name Role Phone Eve Villa Primary Care [...] this topic Zoster (Zostavax) Discontinued Care Teams Panel Laminator Relationship Specialty Start Date End Date Eve Villa PCP - General 11/23/22
--- OUTSIDE RECORDS SUMMARY | 2024-07-20 16:43 | XMS_ITS | Clinical Summary ---
Author Organization [facility] Address [address] [place] [address] Care Team Providers Care Director Of Individual Giving Name Role Phone Yaniv Mills MD Primary Care Provider [phone] Yaniv Mills MD Unavailable [phone] Heidi Avery MD Unavailable Allergies No known [...] Resin tsp/ 200 Active UNABLE TO FIND [place] 100% Acti ve UNABLE TO FIND [place] 100% w [place], cinnamon Active UNABLE TO FIND daily. Hull Oil Active UNABLE TO FIND CHLORELLA taken [...] 10 mg tabletIndicatio ns:Coronary artery disease involving [place] heart, unspecified vessel or lesion type, unspecified [...] and hot flashes in the setting of [place] food intake. No prior episodes in the [...] depending on a new diagnosis. GI CLINIC: [phone] Risks and benefits of testing reviewed, including bleeding/infection/perforation. If you have medication changes prior to your colonoscopy, please call to update and review them with one of the GI nurses: [phone]. Your GI Tesing will be done at [...] any questions please call the GI Clinic [phone]. If you are diagnosed with Covid-19 or develop worrisome symptoms (cough/fever/chills/shortness or breath etc) prior to your GI Testing, please call the GI Clinic at [phone] It is your responsibility to obtain your [...] Team Description 07/06/2024 9:00 AM EDT Follow-Up [facility] Department of General Surgery [address] [place] [address] Heidi Avery MD Surgery follow-up (Primary Dx) 06/30/2024 Orders Only [facility] Gastroenterology [address] [place] [address] Aundrea Varner APRN Ulcer of esophagus without bleeding (Primary Dx) 06/21/2024 8:30 AM EST - 06/21/2024 12:30 PM EST Surgery [facility] Operating Room Services [address] [place], [place] [id number] Heidi Avery MD REPAIR, HERNIA, INGUINAL, ROBOT-ASSISTED, WITHOUT HISTORY OF PRIOR REPAIR, LAPAROSCOPIC [95796 (CPT??)] 06/21/2024 7:01 AM EST - 06/21/2024 3:00 PM EST Hospital Encounter [facility] Operating Room Services [address] [place] [address] Heidi Avery MD Discharge Disposition: Home or Self Care 06/20/2024 10:00 AM EST Lab [facility] Laboratory Draw Station [address] [place] [address] Immunity status testing 06/19/2024 Orders Only [facility] Department of Internal Medicine [address] [place] [address] Aminta Lujan MD Immunity status testing (Primary Dx) 06/12/2024 10:30 AM EST Office Visit [facility] Department of Psychiatry [address] [place] [address] Melanie Murphy APRN BERENICE (generalized anxiety disorder) (Primary Dx); History of alcohol use disorder; Other insomnia; Moderate episode of recurrent major depressive disorder (HCC) 06/12/2024 9:40 AM EST Office Visit [facility] Department of Internal Medicine [address] [place] [address] Yaniv Mills MD Positive CAMILLE (antinuclear antibody) (Primary Dx); Positive double stranded DNA antibody test 06/06/2024 9:20 AM EST Lab [facility] Laboratory Draw Station [address] [place] [address] Tiredness; Skin rash 06/06/2024 8:20 AM EST Consult [facility] Department of Internal Medicine [address] [place], [place] [phone] Yaniv Mills MD Preoperative examination (Primary Dx); Tiredness; Skin rash 06/02/2024 Orders Only [facility] Department of Internal Medicine [address] [place] [address] Yaniv Mills MD Hot flashes (Primary Dx) 06/01/2024 1:05 PM EST - 06/01/2024 2:10 [place] [address] Abiel Black MD EGD (ESOPHAGOGASTRODUODE NOSCOPY) [20919 (CPT??)] 06/01/2024 11:50 AM EST - 06/01/2024 3:37 PM EST Hospital Encounter [address] [address] Abiel Black MD Functional diarrhea Discharge Disposition: Home or Self Care 05/23/2024 11:45 AM EST Lab [facility] Laboratory Draw Station [address] [place] [address] Inguinal hernia without obstruction or gangrene, recurrence not specified, unspecified laterality; Hot flashes 05/23/2024 10:40 AM EST Office Visit [facility] Department of Internal Medicine [address] [place] [address] Yaniv Mills MD Hot flashes (Primary Dx) [...] off but stopped since last one month. [facility] Utilities Answer Date Recorded In the past 12 months has th e [employer], gas, oil, or water [employer] threatened to shut off services in your [...] any time in the past 12 m [facility], were you homeless or living in a usp (including now)? No 07/20/2024 Sex and Gender [...] Description 07/25/2024 11:20 AM EDT Office Visit [facility] Internal Medicine [address] [place] [address] Yaniv Mills MD [address] [address] 07/27/2024 10:30 AM EDT Office Visit [facility] of Dermatology [address] [place] [address] Tee Carey MD [address] [place] [address] [place] [address] 08/14/2024 8:00 AM EDT Office Visit [facility] of Rheumatology [address] [place] [address] Lili Dean [facility] [address] [place] [phone] 09/18/2024 2:15 PM EDT Office Visit [facility] Ophthalmology [address] [place] [address] Sara Hairston MD [address] [place], [place] [address] [phone] Scheduled Procedures Name Priority Associated Diagnoses Date/Ti [...] this topic Medical Devices Implanted Type Area Horticultural Nursery Assistant Device Identifier Shelf Expiration Date Model / Serial / Lot 4in X 6in (10cm X 15cm) Large, Right 3dmax Mesh - [id number] Implanted:Qty : 1 on 06/21/2024 by Heidi Avery MD at [facility] Mesh Implant Right: Abdomen Davol, a SeeControl 08/14/2028 [id number] / / [id number] Procedures Procedure Name Priority Date/Time Associated Diagnosis Comments LIPID PANEL, REFLEX TO LDL CHOLESTEROL, DIRECT Routine 07/05/2024 1:25 PM EDT Coronary artery disease involving [place] heart, unspecified vessel or lesion type, unspecified whether angina present MN AN ELECTIVE ENDOTRACHEAL AIRWAY Routine 06/21/2024 8:48 AM EST MN LAPAROSCOPY SURG RPR INIT IAL INGUINAL HERNIA [...] EXAM Routine 1:47 PM EST Functional diarrhea MN COLONOSCOPY FLX DX W/IRINA J SPEC WHEN PFRMD 06/01/2024 1:38 PM EST Functional diarrhea Special Needs Tri-lyte/non-diab MN ESOPHAGOGASTRODUODENOSCOP Y TRANSORAL DIAGNOSTIC 06/01/2024 1:38 PM [...] LDL cholesterol, direct (07/05/2024 1:25 PM EDT) [facility] Triglycerides 83 mg/dL 07/05/2024 3:18 PM EDT [facility] Comment: Normal: ? Less than 150 [...] Total 188 mg/dL 2024 3:18 PM EDT [facility] Comment: Desirable ?Less than 200 mg/dL ? Borderline High ?200 - 239 mg/dL ? High ? 240 mg/dL or higher Recommendations Adult Treatment Panel CDC: ??NIH Pub No [id number] 3rd report Lani Chol Ed Prog (NCEP) Expert Panel on Detec, Eval, and Treat of High Chol in Adults, August 2000. (2013)Recommendations: [place] Heart Association/[place] College of Cardiology guidelines for cardiovascular/stroke risk are based on age, sex, race, total cholesterol, HDL cholesterol, blood pressure, blood pressure medication use, diabetes and smoking status. An AHA/ACC risk calculator can be found at http://www.cvrisLyticsalculator.Stockpile. Cholesterol, HDL 64 mg/dL 07/06/19 3:18 PM EDT [facility] Comment: High ?60 mg/dL or higher ? Low ? Less than 40 mg/dL ? Recommendations Adult Treatment Panel CDC: NIH Pub No 01 3670 3rd report Lani Chol Ed Prog (NCEP) Expert Panel ??on Detec, Eval, and Treat of High Cho in Adults, August 2000. (2013) Recommendations: [place] Heart Association/[place] College of Cardiology guidelines for cardiovascular/stroke risk are based on age, sex, race, total cholesterol, HDL cholesterol, blood pressure, blood pressure medication use, diabetes and smoking status. An AHA/ACC risk calculator can be found at http://www.cvriskcalculator.com. Fasting Specimen Yes 07/06/19 3:18 PM EDT [facility] LDL Calculated 107 mg/dL 07/05/2024 3:18 PM EDT [facility] Comment: Optimal ?Less than 100 mg/dL New optimal/above optimal ??100 - 129 mg/dL Borderline high ?130 - 159 mg/dL High ? 160 - 189 mg/dL Very high ?190 mg/dL or higher Blood Venous blood specimen / Unknown Venipuncture / Unknown 07/05/2024 1:25 PM EDT 07/05/2024 1:26 PM EDT us Georgie Ware MD LAB BLOOD ORDERABLES NO STAT Fin al Result [facility] [address] [place] [address], * MN AN ELECTIVE ENDOTRACHEAL AIRWAY (06/21/2024 8:48 AM EST) Narrative Walter Milligan APRN - 06/21/2024 8:48 AM EST Walter Milligan APRN ? 06/21/2024 ??8:48 AM Airway - In OR Date/Time: 06/21/2024 8:48 AM General Information and Staff Authorized by: Elan Capps MD Performed by: Walter Milligan APRN, SALES TEACHER Final Airway Details Final airway type: endotracheal [...] IgG 119.0 AU/mL 06/21/2024 10:53 AM EST [facility] Comment: Reference Interval: Measles Antibody, IgG [...] BLOOD ORDERABLES NO STA T Final Result [facility] [address] [place] [address], [place] [phone] * Vasoactive Intestinal Polypeptide (VIP) (06/12/2024 10:07 AM EST) Only the most recent of2 resultswithin the time period is included. Vasoactive Intestinal Polypeptide (VIP) 25 <36 pg/mL 06/23/2024 10:40 AM EST [email or web address] Comment: This test was developed and its performance characteristics determined by [employer]. Values obtained with different methods, laboratories, or kits cannot be used interchangeably with the results on this report. The results cannot be interpreted as absolute evidence of the presence or absence of malignant disease. Specimen Type PLASMA/LA TAX COMPLIANCE AGENT 06/23/2024 10:40 AM EST [email or web address] Blood Venous blood specimen / Unknown Venipuncture / Unknown 06/12/2024 10:07 AM EST 06/12/2024 10:10 AM EST [facility] - 06/23/2024 10:40 AM EST Performing Organization Information: ?Site ID: INS ?Name: [facility] ?Address: [address] [place] [id number] ?Director: Aristeo Nash MD,PhD Yaniv Mills MD LAB BLOOD ORDERABLES NO S TAT Final Result [email or web address] * (ABNORMAL) Antinuclear Antibody (CAMILLE) Qualitative, Reflex to Titer (06/12/2024 10:07 AM EST) Only the most recent of2 resultswithin the time period is included. Antinuclear Antibody (CAMILLE),Qualitative Positive(A) Negative 06/13/2024 12:00 PM EST [facility] Comment:Result is obtained u sing the NOVA Lite HEp-2 CAMILLE indirect immunofluorescence assay Antinuclear antibody (CAMILLE) Titer 1:80 1:80 Titer 06/13/2024 12:00 PM EST [facility] Antinuclear antibody (CAMILLE) Pattern Homogeneous 06/13/2024 12:00 PM EST [facility] Blood Venous blood specimen / Unknown Venipuncture / Unknown 06/12/2024 10:07 AM EST 06/12/2024 10:10 AM EST Narrative [facility] - 06/13/2024 12:00 PM EST CAMILLE [...] BLOOD ORDERABLES NO S TAT Final Result [facility] [address] [place] [address], [place] [phone] * Creatine kinase (06/12/2024 10:07 AM EST) [facility] Total CK 132 22 - 269 U/L 06/12/2024 1:04 PM EST [facility] Blood Venous blood specimen / Unknown Venipuncture / Unknown 06/12/2024 10:07 AM EST 06/12/2024 10:10 AM EST Yaniv Mills MD LAB BLOOD ORDERABLES Radha l Result [facility] [address] [place] [address], [place] [phone] * (ABNORMAL) dsDNA (Crithidia luciliae) Ab IgG by IFA (06/06/2024 9:22 AM EST) Pathologist [facility] Double-Stranded DNA (dsDNA) Ab IgG IFA 1:20(H) <1:10 06/09/2024 10:15 PM EST [employer] Comment: INTERPRETIVE INFORMATION: Double-Stranded DNA (dsDNA) Antibody, [...] recommendations for testing may be found at [email or web address] Performed By: [facility] [address] [place] [address] Shaper Setter: John Priest MD, PhD CLIA Number: [id number] Blood Venous blood specimen / Unknown Venipuncture / Unknown 06/06/2024 9:22 AM EST 06/06/2024 9:22 AM EST us Yaniv Mills MD LAB BLOOD ORDERABLES NO S TAT Final Result [employer] [address] [place] [address] * (ABNORMAL) Complete Blood Count with Auto Differential (06/06/2024 9:22 AM EST) Only the most recent of2 resultswithin the time period is included. White Cell Count 6.7 3.8 - 10.6 10*3/uL 06/06/2024 10:34 AM EST [facility] Red Cell Count 4.80 4.40 - 5.90 10*6/??L 06/06/2024 10:34 AM EST [facility] Hemoglobin 15.1 13.0 - 18.0 g/dL 06/06/2024 10:34 AM [facility] Hematocrit 46.0 40.0 - 52.0 % 06/06/2024 10:34 AM [facility] MCV 95.8 80.0 - 100.0 fL 06/06/2024 10:34 AM [facility] MCH 31.5 26.0 - 34.0 pg 06/06/2024 10:34 AM [facility] MCHC 32.8 32.0 - 36.0 g/dL 06/06/2024 10:34 AM [facility] RBC Distribution Width 12.7 11.6 - 14.8 % 06/06/2024 10:34 AM [facility] Platelet count 211 150 - 440 10*3/uL 06/06/2024 10:34 AM [facility] Neutrophils 53.6 40.0 - 70.0 % 06/06/2024 10:34 AM [facility] Immature Granulocytes 0.1 0.0 - 0.6 % 06/06/2024 10:34 AM [facility] Lymphocytes 31.2 20.0 - 50.0 % 06/06/2024 10:34 AM [facility] Monocytes 9.0 4.0 - 12.0 % 06/06/2024 10:34 AM [facility] Eosinophils 5.4 0.0 - 6.0 % 06/06/2024 10:34 AM [facility] Basophils 0.7 0.0 - 2.0 % 06/06/2024 10:34 AM [facility] Absolute Neutrophil Ct. 3.6 1.4 - 6.3 10*3/uL 06/06/2024 10:34 AM [facility] Absolute Lymphocyte Ct. 2.1 0.7 - 4.5 10*3/uL 06/06/2024 10:34 AM [facility] Absolute Monocyte Ct. 0.6 0.2 - 0.8 10*3/uL 06/06/2024 10:34 AM EST [facility] Absolute Eosinophil Ct. 0.4(H) 0.0 - 0.3 10*3/uL 06/06/2024 10:34 AM EST [facility] Absolute Basophil Ct. 0.1 0.0 - 0.2 10*3/uL 06/06/2024 10:34 AM EST [facility] nRBC 0.0 0.0 - 0.0 % 06/06/2024 10:34 AM EST [facility] Blood Venous blood specimen / Unknown Venipuncture / Unknown 06/06/2024 9:22 AM EST 06/06/2024 9:22 AM EST Yaniv Mills MD LAB BLOOD ORDERABLES Radha l Result Performing Organization Address City/[facility] Co de Phone Number [facility] [address] [place] [address], * Cylic Ctrullinated Peptide Antibody (06/06/2024 9:22 AM EST) Cyclic Citrullinated Peptide Antibody 7 Units 06/09/2024 12:20 PM EST [facility] Blood Venous blood specimen / Unknown Venipuncture / Unknown 06/06/2024 9:22 AM EST 06/06/2024 9:22 AM EST Narrative [facility] - 06/09/2024 12:20 PM EST Negative ?<20 ?? Units Weak Positive ? 20-39 Units Moderate Positive 40-59 Units Strong Positive ?? >59 ?? Units Yaniv Mills MD LAB BLOOD ORDERABLES NO S TAT Final Result Performing Organization Address City/[facility]/ZIP Co de Phone Number [facility] [address] [place] [address], * Sedimentation rate (06/06/2024 9:22 AM EST) [facility] Sedimentation Rate 3 0 - 15 mm 2024 10:53 AM EST [facility] Blood Venous blood specimen / Unknown Venipuncture / Unknown 06/06/2024 9:22 AM EST 06/06/2024 9:22 AM EST Yaniv Mills MD LAB BLOOD ORDERABLES Radha l Result [facility] [address] [place] [address], * Rheumatoid factor (06/06/2024 9:22 AM EST) [facility] Rheumatoid Factor Qualitative Negative Negative 06/07/2024 9:46 AM EST [facility] Comment:Negative results ind icate RF values < 8 IU/mL Blood Venous blood specimen / Unknown Venipuncture / Unknown 06/06/2024 9:22 AM EST 06/06/2024 9:22 AM EST Narrative [facility] - 06/07/2024 9:46 AM EST Performed by manual agglutination using an FDA-cleared assay (SureVue RF) verified by [facility]. ??Negative results do not exclude the possibility of rheumatoid arthritis, whereas positive results do not confirm the diagnosis. ??Testing for anti-citrullinated protein (anti-CCP) antibody may also be considered. us Yaniv Mills MD LAB BLOOD ORDERABLES NO S TAT Final Result [facility] [address] [place] [address], [place] [phone] * TSH (06/06/2024 9:22 AM EST) [facility] TSH 3.02 0.35 - 4.94 uIU/mL 06/06/2024 11:10 AM EST [facility] Blood Venous blood specimen / Unknown Venipuncture / Unknown 06/06/2024 9:22 AM EST 06/06/2024 9:22 AM EST Yaniv Mills MD LAB BLOOD ORDERABLES NO S TAT Final Result Performing Organization Address City/[facility]/ZIP Co de Phone Number [facility] [address] [place] [address], [place] [phone] * Magnesium (06/06/2024 9:22 AM EST) Magnesium 2.0 1.8 - 3.0 mg/dL 06/06/2024 10:40 AM EST [facility] Blood Venous blood specimen / Unknown Venipuncture / Unknown 06/06/2024 9:22 AM EST 06/06/2024 9:22 AM EST Yaniv Mills MD LAB BLOOD ORDERABLES Radha l Result Performing Organization Address City/[facility] Co de Phone Number [facility] [address] [place] [address], * Comprehensive metabolic panel (06/06/2024 9:22 AM EST) Total Bilirubin 1.1 0.1 - 1.2 mg/dL 06/06/2024 10:40 AM EST [facility] Calcium 10.1 8.4 - 10.2 mg/dL 06/06/2024 10:40 AM EST [facility] CO2 29 23 - 32 mmol/L 06/06/2024 10:40 AM EST [facility] Chloride 105 100 - 111 mmol/L 06/06/2024 10:40 AM EST [facility] Creatinine 1.10 0.60 - 1.20 mg/dL 06/06/2024 10:40 AM [facility] Glucose 86 70 - 200 mg/dL 06/06/2024 10:40 AM [facility] Comment: Normal fasting glucose ?75-99 [...] 39 - 113 U/L 06/06/2024 10:40 AM [facility] Potassium 4.2 3.6 - 5.1 mmol/L 06/06/2024 10:40 AM [facility] Sodium 142 137 - 144 mmol/L 06/06/2024 10:40 AM [facility] Anion gap 8 3 - 11 mmol/L 06/06/2024 10:40 AM [facility] AST 31 17 - 35 U/L 06/06/2024 10:40 AM [facility] ALT (SGPT) 27 8 - 39 U/L 06/06/2024 10:40 AM [facility] BUN 9 8 - 24 mg/dL 06/06/2024 10:40 AM [facility] Albumin 4.9 3.8 - 5.3 g/dL 06/06/2024 10:40 AM [facility] eGFR 71 >60 mL/min/1. 73m*2 06/06/2024 10:40 AM [facility] Comment: Calculation based on the [...] ? 75 ml/min/1.73 m2 ? Pursuant to [place] Public Act 06-120(1)(b)(1). ?? The 2020 CKD-EPI calculation used to estimate eGFR has only been validated for patients 18 years or older. Total Protein 7.4 6.2 - 8.1 g/dL 06/06/2024 10:40 AM EST [facility] Blood Venous blood specimen / Unknown Venipuncture / Unknown 06/06/2024 9:22 AM EST 06/06/2024 9:22 AM EST Yaniv Mills MD LAB BLOOD ORDERABLES Radha l Result Performing Organization Address [facility] Co de Phone Number [facility] [address] [place] [address], [place] [phone] * ECG 12 lead (06/06/2024 8:22 AM EST) 06/06/2024 8:22 AM EST 06/06/2024 11:51 AM EST Narrative [facility] (MUSE) - 06/06/2024 11:51 AM EST Ventricular Rate: 71 BPM Atrial Rate: 71 BPM P-R Interval: 164 ms QRS Duration: 78 ms Q-T Interval: 358 ms QTC Calculation(Bazett): 389 ms P Saltese: 32 degrees R Saltese: 20 degrees T Saltese: 50 degrees Diagnosis: Normal sinus rhythm Normal ECG When compared with ECG of 27-FEB-2024 00:58, No significant change was found Confirmed by Artis Baldwin ([id number]) on 06/06/2024 8:51:36 AM Also confirmed by Artis Baldwin ([id number]), manuscript editor Maris Hunter ([id number]) on 06/06/2024 11:51:51 AM Procedure Note Artis Baldwin MD - 06/06/2024 Ventricular Rate: 71 BPM Atrial Rate: 71 BPM P-R Interval: 164 ms QRS Duration: 78 ms Q-T Interval: 358 ms QTC Calculation(Bazett): 389 ms P Saltese: 32 degrees R Saltese: 20 degrees T Saltese: 50 degrees Diagnosis: Normal sinus rhythm Normal ECG When compared with ECG of 27-FEB-2024 00:58, No significant change was found Confirmed by Artis Baldwin ([id number]) on 06/06/2024 8:51:36 AM Also confirmed by Artis [id number]), manuscript editor Maris Hunter ([id number]) on 06/06/2024 11:51:51 AM Yaniv Mills MD ECG ORDERABLES Final Res ult Performing Organization Address City/[facility]/ZIP Co de Phone Number [facility] CARDIAC SERVICES ([place]USE) [place] [address], * COLONOSCOPY (06/01/2024 2:05 PM EST) 06/01/2024 2:05 PM EST Narrative [facility] - 06/01/2024 2:56 PM [...] ? intravenous line was inserted. The ? [id number] scope was introduced ? through the anus and advanced to the cecum, ? identified by appendiceal orifice and ? ileocecal valve. The colonoscopy was ? performed without difficulty. The patient ? tolerated the procedure well. The quality ? of the bowel preparation was good. The ? quality of the bowel preparation was ? evaluated using the BBPS ([place] Bowel ? Preparation Scale) with scores of: [...] Procedure Code(s): ? --- Professional --- ? 86150, Colonoscopy, flexible; with removal ? of tumor(s), polyp(s), or other lesion(s) ? by snare technique ? 10504, 59, Colonoscopy, flexible; with ? biopsy, single [...] abscess without ? bleeding CPT copyright 2022 [employer]. All rights reserved. The codes documented in this report are preliminary and upon horticultural specialty grower review may be revised to meet current compliance requirements. MD Abiel Varghese MD 06/01/2024 2:56:53 PM Electronically Authenticated and Edited by: MD Dexter Varghese MD Number of Addenda: 0 ? [facility] [address] [place] [address] Tel: [phone] us Abiel Black MD GI PROCEDURE Final Result Performing Organization Address [facility]/State/[facility] Co de Phone Number [facility] [address] [place] [address]. [place] [address], * Surgical Specimen Exam (06/01/2024 1:47 PM EST) Case Report Surgical Pathology ?Case: [id number] ? Authorizing Provider: ??Abiel Black MD ? Collected: ? 06/01/2024 1347 ? Ordering Location: ? [facility] ? Received: ?06/01/2024 1556 ? Pathologist: ? [...] colon polyp ? 06/08/2024 4:35 PM EST [facility] Final Diagnosis A. Duodenum at [...] Sessile serrated adenoma. 06/08/2024 4:35 PM EST [facility] at 1635 EST Gross Description Prosector: [...] in cassette G1. 06/08/2024 4:35 PM EST [facility] Embedded Images 06/08/2024 4:35 PM EST [facility] Tissue Duodenal structure / Unknown 06/01/2024 [...] SOURCE) Asim maza Result Performing Organization Address City/State/[facility] de Phone Number [facility] [address] [place] [address], * UPPER GI ENDOSCOPY (06/01/2024 1:25 PM EST) 06/01/2024 1:25 PM EST Narrative [facility] - 06/01/2024 2:51 PM [...] intravenous line was inserted. The GIF-1100 ? [id number] scope was introduced through the ? mouth, [...] Procedure Code(s): ? --- Professional --- ? 13809, Esophagogastroduodenoscopy, ? flexible, transoral; with biopsy, single or ? multiple Diagnosis Code(s): ? --- Professional --- ? K22.10, Ulcer of esophagus without bleeding ? 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 K31.89, Other diseases of stomach and ? duodenum ? R13.10, Dysphagia, unspecified ? R19.7, Diarrhea, unspecified CPT copyright 2022 [employer]. All rights reserved. The codes documented in this report are preliminary and upon horticultural specialty grower review may be revised to meet current compliance requirements. MD Abiel Varghese MD 06/01/2024 2:51:31 PM Electronically Authenticated and Edited by: MD Dexter Varghese MD Number of Addenda: 0 ? [address] [address] Tel: [phone] Abiel Black MD GI PROCEDURE Final Result [facility] [address] [place] [address], [place] [phone] * 24 HR URINE 5 HIAA QUANT (Q) (05/29/2024 9:06 AM EST) 5 HIAA 2.0 < OR = 10.0 mg/g creat [facility], Comment: This test was developed and its analytical performance characteristics have been determined by [facility]. It has not been cleared or approved by FDA. This assay has been validated pursuant to the CLIA regulations and is used for clinical purposes. [facility] CREATININE, RANDOM URINE 74 20 - 320 mg/dL [facility], Urine 05/29/2024 9:06 AM EST 05/29/2024 9:07 AM EST Yaniv EMANUEL [facility] LAB ORDERABLES Final Result Performing Organization Address City/[facility]/ZIP Co de Phone Number [facility], [address] [place] [address] * Allergen, food, corn (05/23/2024 11:44 AM EST) Allergen, Food, [place] IgE see scanned results 05/30/2024 3:00 PM EST [facility] Blood Venous blood specimen / Unknown Venipuncture / Unknown 05/23/2024 11:44 AM EST 05/23/2024 11:52 AM EST Yaniv Mills MD LAB BLOOD ORDERABLES NO S TAT Final Result [facility] [address] [place] [address] * Allergen, food, seafood profile (05/23/2024 11:44 AM EST) [facility] Allergen, Food, Codfish IgE <0.10 <=0.34 kU/L 05/26/2024 10:56 PM EST [facility] Allergen, Food, Crab IgE <0.10 <=0.34 kU/L 05/26/2024 10:56 PM EST [facility] Allergen, Food, Lobster IgE <0.10 <=0.34 kU/L 05/26/2024 10:56 PM EST [facility] Allergen, Food, Shrimp IgE <0.10 <=0.34 kU/L 05/26/2024 10:56 PM [facility] Allergen, Food, Tuna IgE <0.10 <=0.34 kU/L 05/26/2024 10:56 PM [facility] Allergen, Interp, Immunocap Score IgE See Note 05/26/2024 10:56 PM [facility] Comment: REFERENCE INTERVAL: Allergen, Interpretation Less than [...] clinical allergy or even anaphylaxis. Performed By: [facility] [address] [place] [address] Shaper Setter: John Priest MD, PhD CLIA Number: [id number] Blood Venous blood specimen / Unknown Venipuncture / Unknown 05/23/2024 11:44 AM EST 05/23/2024 11:52 AM EST us Yaniv Mills MD LAB BLOOD ORDERABLES NO S TAT Final Result [facility] [address] [place] [address] * Allergens, food, comprehensive profile 1 (05/23/2024 11:44 AM EST) Allergy, Food, Barley, IgE <0.10 <=0.34 kU/L 05/26/2024 10:56 PM EST [facility] Allergen, Food, Beef IgE <0.10 <=0.34 kU/L 05/26/2024 10:56 PM EST [facility] Allergen, Food, Sweet pepper, IgE <0.10 <=0.34 kU/L 05/26/2024 10:56 PM EST [facility] Allergen, Food, Cabbage, IgE <0.10 <=0.34 kU/L 05/26/2024 10:56 PM EST [facility] Allergen, Food, Carrot, IgE <0.10 <=0.34 kU/L 05/26/2024 10:56 PM EST [facility] Allergen, Food, Chicken IgE <0.10 <=0.34 kU/L 05/26/2024 10:56 PM EST [facility] Allergen, Food, Codfish IgE <0.10 <=0.34 kU/L 05/26/2024 10:56 PM EST [facility] Allergen, Food, [place] IgE <0.10 <=0.34 kU/L 05/26/2024 10:56 PM [...] 10:56 PM EST [facility] Allergen, Food, [place] carmona, IgE <0.10 <=0.34 kU/L 05/26/2024 10:56 PM EST [facility] Allergen, Food, Oat, IgE <0.10 <=0.34 kU/L 05/26/2024 10:56 PM EST [facility] Allergen, Food, [place], IgE <0.10 <=0.34 kU/L 05/26/2024 10:56 PM [...] 10:56 PM EST [facility] Allergen, Food, [place], IgE <0.10 <=0.34 kU/L 05/26/2024 10:56 PM EST [facility] Allergen, Food, Shrimp IgE <0.10 <=0.34 kU/L 05/26/2024 10:56 PM EST [facility] Allergen, Food, Soybean IgE <0.10 <=0.34 kU/L 05/26/2024 10:56 PM EST [facility] Allergen, Food, Tomato, IgE <0.10 <=0.34 kU/L 05/26/2024 10:56 PM EST [facility] Allergen, Food, Tuna IgE <0.10 <=0.34 kU/L 05/26/2024 10:56 PM EST [facility] Allergen, Food, Wheat IgE <0.10 <=0.34 kU/L 05/26/2024 10:56 PM EST [facility] Allergen, Interp, Immunocap Score IgE See Note 05/26/2024 10:56 PM EST [facility] Comment: REFERENCE INTERVAL: Allergen, Interpretation Less than [...] clinical allergy or even anaphylaxis. Performed By: [facility] [address] [place] [id number] Shaper Setter: John Priest MD, PhD CLIA Number: [id number] Blood Venous blood specimen / Unknown Venipuncture / Unknown 05/23/2024 11:44 AM EST 05/23/2024 11:52 AM EST us Yaniv Mills MD LAB BLOOD ORDERABLES NO S TAT Final Result [facility] [address] [place] [address] * Prothrombin time (PT) with INR (05/23/2024 11:44 AM EST) PT 11.6 10.4 - 13.0 seconds 05/23/2024 3:48 PM EST [facility] INR 1.0 0.9 - 1.1 ratio 05/23/2024 3:48 PM EST [facility] Blood Venous blood specimen / Unknown Venipuncture / Unknown 05/23/2024 11:44 AM EST 05/23/2024 11:52 AM EST Narrative [facility] - 05/23/2024 3:48 PM EST Warfarin [...] MD LAB BLOOD ORDERABLES Final Resul t [facility] [address] [place] [address], * Gastrin level (05/23/2024 11:44 AM EST) Gastrin 17 0 - 100 pg/mL 05/26/2024 10:10 PM EST [facility] Comment: Performed By: [facility] [address] [place] [address] Shaper Setter: John Priest MD, PhD CLIA Number: [id number] Blood Venous blood specimen / Unknown Venipuncture / Unknown 05/23/2024 11:44 AM EST 05/23/2024 11:52 AM EST us Yaniv Mills MD LAB BLOOD ORDERABLES NO S TAT Final Result [place] [address] * (ABNORMAL) Basic metabolic panel (05/23/2024 11:44 AM EST) Sodium 143 137 - 144 mmol/L 05/23/2024 3:21 PM [facility] Potassium 5.2(H) 3.6 - 5.1 mmol/L 05/23/2024 3:21 PM [facility] Chloride 104 100 - 111 mmol/L 05/23/2024 3:21 PM [facility] CO2 29 23 - 32 mmol/L 05/23/2024 3:21 PM [facility] Anion gap 10 3 - 11 mmol/L 05/23/2024 3:21 PM [facility] BUN 13 8 - 24 mg/dL 05/23/2024 3:21 PM [facility] Creatinine 1.10 0.60 - 1.20 mg/dL 05/23/2024 3:21 PM [facility] Glucose 91 70 - 200 mg/dL 05/23/2024 3:21 PM [facility] Comment: Normal fasting glucose ?75-99 [...] - 10.2 mg/dL 05/23/2024 3:21 PM EST [facility] eGFR 71 >60 mL/min/1. 73m*2 05/23/2024 3:21 PM EST [facility] Comment: Calculation based on the Chronic [...] ? 75 ml/min/1.73 m2 ? Pursuant to [place] Public Act 06-120(1)(b)(1). ?? The 2021 CKD-EPI calculation used to estimate eGFR has only been validated for patients 18 years or older. Blood Venous blood specimen / Unknown Venipuncture / Unknown 05/23/2024 11:44 AM EST 05/23/2024 11:52 AM EST Heidi Avery MD LAB BLOOD ORDERABLES Final Resul t [facility] [address] [place] [address], * HIV combo antigen/antibody (09/17/2023 10:18 AM EDT) HIV Combo AB/AG Negative Negative 09/17/2023 11:53 AM EDT [facility] Blood Venous blood specimen / Unknown Venipuncture / Unknown 09/17/2023 10:18 AM EDT 09/17/2023 10:21 AM EDT Narrative [facility] - 09/17/2023 11:53 AM EDT This test is a 4th generation HIV Antigen-Antibody Combination assay, using a chemiluminescent microparticle immunoassay, for the simultaneous qualitative detection of human immuno- deficiency virus (HIV) p24 antigen and antibodies to HIV type 1 (HIV-1) and/or HIV type 2 (HIV-2) in human serum or plasma. The [employer] HIV Ag/Ab Combo assay is intended to [...] BLOOD ORDERABLES NO S TAT Final Result [facility] [address] [place] [address], * Hepatitis C antibody (09/17/2023 10:18 AM EDT) Hepatitis C Antibody Negative Negative 09/17/2023 11:58 AM EDT [facility] Comment:Anti-HCV (HCVAb) Not Detected. Patient is presumed not to be infected with HCV. The possibility of exposure to HCV cannot be excluded. 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
[2024-07-20 16:56] LABS: Creatinine Urine 90.79 mg/dL; Total Protein Urine Random < 7 mg/dL (<12)
[2024-07-20 19:17] LABS: Rheumatoid Factor < 13.0 IU/mL (<15.0)
[2024-07-21 21:42] LABS: Anti DNA DS Antibody 1 IU/mL; Antibody to SS-A Antigen <1.0 NEG AI (<1.0 NEG); Antibody to SS-B Antigen <1.0 NEG AI (<1.0 NEG); SM/Ribonucleoprotein Ab <1.0 NEG AI (<1.0 NEG); Scleroderma 70 Antibody <1.0 NEG AI (<1.0 NEG); Smith Protein <1.0 NEG AI (<1.0 NEG)
[2024-07-21 22:04] LABS: Thyroglobulin Antibodies 391 IU/mL (< or = 1); Thyroid Peroxidase Antibodies <1 IU/mL (<9)
[2024-07-23 12:24] LABS: Prot Elec - Albumin 4.5 g/dL (3.8-4.8); Prot Elec - Alpha1 0.3 g/dL (0.2-0.3); Prot Elec - Alpha2 0.7 g/dL (0.5-0.9); Prot Elec - Beta 1 0.4 g/dL (0.4-0.6); Prot Elec - Beta 2 0.3 g/dL (0.2-0.5); Prot Elec - Gamma 0.7 g/dL (0.8-1.7); Prot Elec - Total Protein 6.8 g/dL (6.1-8.1)
[2024-07-24 17:38] LABS: IgA 147 mg/dL (70-320); IgG 750 mg/dL (600-1540); IgM 82 mg/dL (50-300)
[2024-07-24 18:03] LABS: Anti-Centromere B Antibodies <1.0 NEG AI (<1.0 NEG)
[2024-07-25 06:44] LABS: Cyclic Citrullinated Peptide <16 UNITS
[2024-07-25 08:18] LABS: Aldolase 3.6 U/L (<=8.1)
[2024-07-27 09:38] LABS: Anti Nuclear Antibody Screen POSITIVE (NEGATIVE); Anti Nuclear Antibody Titer 1:40 titer
[2024-07-30 16:23] LABS: Cytosolic 5'nuc 1A Ab IgG <5 Units; Ej Ab <11 SI (<11); HMGCR Ab IgG <2 CU (<20); Jo-1 Ab <11 SI (<11); MDA5 Ab <11 SI (<11); Mi-2 alpha Ab <11 SI (<11); Mi-2 beta Ab <11 SI (<11); NXP-2 (MJ) Ab <11 SI (<11); Oj Ab <11 SI (<11); Pl-12 Ab <11 SI (<11); Pl-7 Ab <11 SI (<11); SRP Ab <11 SI (<11); TIF1 gamma Ab <11 SI (<11)
== END 2024-07-20 14:17 | disposition home or self-care (01) ==
LOC: HO.LAB 14:16
PROVIDERS: PCP Internal Medicine; Visit Provider Student in an Organized Health Care Education/Training Program
DX: G72.9 Myopathy, unspecified (principal)
CPT/HCPCS: 36415; 80053; 82085; 82550; 82570; 82784; 83516; 83520; 84156; 84165; 84182; 84443; 85025; 85652; 86038; 86039; 86140; 86200; 86225; 86235; 86334; 86376; 86431; 86800

== ENCOUNTER 2024-07-20 14:16 | Outpatient (AMB) | payer OTHER, SELFPAY ==
[2024-07-20 14:18] VITALS: BP 130/78; PULSE 72; O2SAT 99; BMI 27.5
--- NOTE | 2024-07-20 14:18 | A.OFFVIS_ITS ---
Vital Signs 07/20/24 14:18 Height 6 ft 1 in Weight 208 lb 1.862 oz BMI 27.5 BP 130/78 Blood Pressure Location Lt brachial Position Sitting Pulse 72 Pulse Source Pulse Oximeter Pulse Oximetry (%) 99 Oxygen Delivery Method Room Air Intake Visit Reasons: autoimmune disease Intake Note: Patient states he has been weak for the past month and half and with some activity, feels like he is going to pass out, washing dishes, sweeping floor, sitting down is ok for him. He had some labs done with his PCP. He states he saw some autoimmune results. Patient states that he will send us a med list that is updated. Allergies sertraline Adverse Reaction (Intermediate, Verified 07/20/24 14:22) anxiety zolpidem Adverse Reaction (Intermediate, Verified 07/20/24 14:22) sleepwalking Medication List - Last Reconciled 07/20/24 by Katia Gonzalez MD acetaminophen (Tylenol) 650 mg (2 x 325 mg) PO TID PRN atorvastatin 80 mg PO BEDTIME 90 days bupropion HCl SR 150 mg PO QAM coenzyme Q10 10 mg PO TID hydroxyzine HCl 25 mg PO BEDTIME 90 days multivitamin 1 tab PO DAILY peg 3350-electrolytes 236-22.74-6.74 -5.86 gram (Golytely) 240 mL PO Q10M 1 day vitamin B complex (B Complex-Vitamin B12 tablet) 1 tab PO DAILY 90 days HPI Comments Details: Patient is a 74 y.o. male with BERENICE, insominia, alcohol use disorder, and HLD. Patient notes that he started feeling weak after minimal activity. 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 Started about 2 months ago. Also notes a rash of his abdomen that started in April that has been slowly improving. 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[employer] [facility] Medical History (Updated 01/30/22 @ 14:00 by Astrid Pierce RN) Paroxysmal atrial fibrillation Obstructive sleep apnea Erectile dysfunction GERD (gastroesophageal reflux disease) Anxiety Overweight (BMI 25.0-29.9) History of atrial fibrillation Pure hypercholesterolemia Insomnia Alcoholism /alcohol abuse Surgical History (Updated 12/16/21 @ 12:49 by PARMINDER Linda) History of esophagogastroduodenoscopy (EGD) Hx of colonoscopy History of bunionectomy of left great toe Status post repair of ventral hernia Status post cervical spinal fusion Family History Father Stroke Coronary artery disease Social History Housing: House Alcohol intake: current Alcohol intake frequency: former alcohol drinker Alcohol type: wine Patient Tobacco Use Status: Former Tobacco user Tobacco use type: Cigarette e-Cigarette/Vaping Use: Never Used Second Hand Smoke Exposure: No service: No Current occupational status: employed 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 [employer] Cognitive needs: No Hearing needs: No Vision needs: No Review of Systems Const Details: Review of Systems Constitutional: Denies fever, chills, weight loss ENT: Denies vision changes, eye pain or eye redness, dental caries, dry mouth GI: Denies nausea, vomiting, diarrhea, abdominal pain, change in BM Pulm: Denies SOB, GARCIA, hemoptysis, wheezing Cards: Denies chest pain, palpitations Skin: Denies Raynaud's, rash, nail changes, photosensitivity, CORPORATE WELLNESS COORDINATOR: Denies headaches, weakness, paresthesias, recurrent falls MSK: as per HPI All other systems reviewed and are unremarkable except noted above Physical Exam Vital Signs: Last Vital Signs Pulse 72 07/20/24 14:18 BP 130/78 07/20/24 14:18 Pulse Ox 99 07/20/24 14:18 Oxygen Delivery Method Room Air 07/20/24 14:18 BMI result Body Mass Index 27.5 Vital signs reviewed Physical Examination CONSTITUITIONAL Patient alert and cooperative. Well appearing and in no apparent painful distress HEENT Conjunctiva and sclera clear. ?Pupils equal round and reactive to light. ?No lymphadenopathy. ?Poor dentition CHEST/RESPIRATORY SYSTEM Normal respiratory effort and able to speak in complete sentences. ?Clear to auscultation bilaterally. ?No crackles, rales, rhonchi, wheezes heard. CARDIAC SYSTEM Regular rate and rhythm. ?S1 and S2 heard no murmurs. ?Radial pulses intact bilaterally MSK Hands: ?Good it help desk technician strength bilaterally. No deformities noted. ?No synovitis noted to the MCPs, PIPs or DIPs. ?No tenderness to palpation of these joints. Wrists: ?Full range of motion at the wrists without pain. ?No tenderness to palpation or synovitis noted to the wrists. Elbows: Full range of motion without pain. No tenderness, weakness, swelling, increased warmth or erythema. Shoulders: Full range of motion without pain. No tenderness, weakness, swelling, increased warmth or erythema. Hips: Full range of motion without pain. Hip bursa: No tenderness to palpation Knees: ?Full range of motion. ?No tenderness, swelling, increased warmth or erythema.?No effusion or crepitations Ankles: Full range of motion. ?No tenderness, swelling, increased warmth or erythema.? Feet: ?Negative squeeze test. ?No tenderness to palpation or swelling of the MTPs. Tender points:?No tenderness to palpation of the bilateral trapezius, supraspinatus, greater trochanters, anterior costochondral junctions, bilateral gluteal areas, bilateral suboccipital muscle insertions SKIN Scattered small plaques on his abdomen Right Left Workforce Management Manager strength 5 5 Elbow flexion 5 5 Elbow extension 5 5 Shoulder abduction 5 5 Shoulder adduction 5 5 Hip flexion 5 5 Knee extension 5 5 Knee flexion 5 5 Ankle dorsiflexion 5 5 Ankle plantarflexion 5 5 Results Reviewed Results Reviewed: No labs to review Assessment & Plan Assessment & Plan (1) Weakness: Code(s): R53.1 - Weakness Plan: #Weakness Patient is a 74-year-old male complaining of easy fatigability. Unfortunately he does not have any results to show today. States that he had an abnormal ?autoimmune result but seem not seen Unlikely any connective tissue disease such as lupus, Sjogren's or scleroderma given that he does not have any inflammatory arthritis, dry eyes or dry mouth, skin tightening. He has good muscle strength throughout so unlikely myositis Given that he had some abnormal autoimmune labs we will check a full panel Plan I spent 30 minutes reviewing the record and labs, taking a history, examining the patient, discussing the treatment plan, ordering diagnostic work up and documenting in the medical record Orders: Orders Complete Blood Count Auto Diff Today G72.9 - Myopathy, unspecified Creatine Kinase Total Today G72.9 - Myopathy, unspecified Aldolase Today G72.9 - Myopathy, unspecified Immunoglobulins,IgG IgA IgM Today G72.9 - Myopathy, unspecified Immunofixation Pnl, Serum Today G72.9 - Myopathy, unspecified CAMILLE Reflex Titer and Pattern Today G72.9 - Myopathy, unspecified Anti-Centromere B Antibodies Today G72.9 - Myopathy, unspecified Anti DNA DS Antibody Today G72.9 - Myopathy, unspecified Comprehensive Met. Panel Today G72.9 - Myopathy, unspecified C Reactive Protein Today G72.9 - Myopathy, unspecified Erythrocyte Sedimentation Rate Today G72.9 - Myopathy, unspecified Protein Creatinine Ratio, Ur Today G72.9 - Myopathy, unspecified Sm Sm/MEDICAL IMAGING DIRECTOR Antibodies Today G72.9 - Myopathy, unspecified Scleroderma 70 Antibody Today G72.9 - Myopathy, unspecified Sjogren's Antibodies Today G72.9 - Myopathy, unspecified Thyroglobulin Antibodies Today G72.9 - Myopathy, unspecified Thyroid Peroxidase Antibodies Today G72.9 - Myopathy, unspecified Thyroid Stimulating Hormone Today G72.9 - Myopathy, unspecified Protein Electrophoresis, Serum Today G72.9 - Myopathy, unspecified Cyclic Citrullinated Peptide Today G72.9 - Myopathy, unspecified Rheumatoid Factor Today G72.9 - Myopathy, unspecified MSA Panel Extended Today G72.9 - Myopathy, unspecified Coding Level of Care Code New Pt Level 3 (38414) Diagnoses Weakness R53.1
--- OUTSIDE RECORDS SUMMARY | 2024-07-20 15:43 | XMS_ITS | Clinical Summary ---
Author Organization [facility] Address [address] [place] [address] Care Team Providers Care Engineering Group Leader Name Role Phone Eve Villa Primary Care Provider Unavailabl e Immunizations Name Administration Dates Next Due Influenza (SEASONAL) - 06/07/2013 Social History Tobacco Use Types Packs/Day Years Used Date Smoking Tobacco: Never Assessed Sex and Gender Information Value Date Recorded Sex Assigned at Not on file Legal Sex Male 9:46 PM EDT Gender Identity Not on file Sexual Orientation Not on file Plan of Treatment Health Maintenance Due Date Last Done Comments Hepatitis C Screening 1950 DTaP/Tdap/Td (1 - Tdap) 1969 Pneumococcal 50+ years (1 of 1 - PCV) 2001 Zoster (Shingrix) (1 of 2) 2001 COVID-19 Vaccine ( - 2023-2 5 season) 2023 Influenza (#1) 2023 06/07/2013 RSV (1 - 1-dose 75+ series) 2026 Abdominal Aorta Imaging Discontinued HPV Vaccine Aged Out No longer eligi ble based on patient's age to complete this topic Hep A Aged Out No longer eligi ble based on patient's age to complete this topic Hep B Aged Out No longer eligi ble based on patient's age to complete this topic Hib Aged Out No longer eligi ble based on patient's age to complete this topic Meningococcal ACWY Aged Out No longer eligible based on patient's age to complete this topic Zoster (Zostavax) Discontinued Care Teams Engineering Group Leader Relationship Specialty Start Date End Date Eve Villa PCP - General 11/23/22
--- OUTSIDE RECORDS SUMMARY | 2024-07-20 15:43 | XMS_ITS | Clinical Summary ---
Author Organization [address] Address [address] [place] [id number] Care Team Providers Care Peanut Shaker Name Role Phone Anup Prince MD Primary Care Provider [phone] Allergies No known active allergies Medications * This document contains information received from the source organization and may not represent a complete record from that organization. OMEPRAZOLE (PRILOSEC ORAL) Take by mouth. Active sildenafil (VIAGRA) 100 MG tablet Take 1 tablet (100 mg total) by mouth daily as needed for erectile dysfunction. Active fish oil-omega-3 fatty acids 1,000 mg capsule Take 2 capsules (2 g total) by mouth daily. Active CHROM TOMÁS/BRINDALL PORRAS (GARCINIA CAMBOGIA ORAL) Take by mouth. Active COFFEE EXTRACT (GREEN COFFEE PAULSON ORAL) Take by mouth. Active COQ10, LIPOSOMAL UBIQUINOL, ORAL Take by mouth. Active atorvastatin (LIPITOR) 80 MG tablet Take 1 tablet (80 mg total) by mouth daily. Active aspirin 325 MG tabletIndicatio ns:myocardial infarction prevention Take 1 tablet (325 mg total) by mouth daily. Active zolpidem CR (AMBIEN CR) 6.25 mg 24 hr tablet Take 1 tablet (6.25 mg total) by mouth nightly as needed for sleep. Active Active Problems Problem Noted Date Diagnosed Date Research study patient 01/27/2024 Encounter for screening colonoscopy 06/13/2013 Dysphagia 06/13/2013 GERD (gastroesophageal reflux disease) 4 Inguinal hernia 06/13/2013 Encounters * This document contains information received from the source organization and may not represent a complete record from that organization. Date Type Department Care Team Description 05/02/2024 Travel from Last 3 Months Immunizations Name Administration Dates Next Due Influenza, high-dose, split virus, trivalent,(65Yr+),injectable, preservative free 12/28/2023 Social History Tobacco Use Types Packs/Day Years Used Date Smoking Tobacco: Former Comments:quit 40 years ago Alcohol Use Standard Drinks/Week Comments Yes 0 (1 standard drink = 0.6 oz pur e alcohol) daily wine Interpersonal Safety Answer Date Record ed Is there anyone in your life that is hurting or threatening you in anyway? no 05/02/2024 Physical Indicators of Abuse No evidence of phys ical abuse 05/02/2024 Sex and Gender Information Value Date Recorded Sex Assigned at Not on file Legal Sex Male 9:15 AM EST Gender Identity Not on file Sexual Orientation Not on file Last Filed Vital Signs Vital Sign Reading Time Taken Comments Blood Pressure 138/83 05/02/2024 12:12 PM EST Pulse 62 05/02/2024 12:12 PM EST Temperature 36.4 ??C (97.6 ??F) 05/02/2024 12:[address] Respiratory Rate 18 05/02/2024 12:12 PM EST Oxygen Saturation 99% 05/02/2024 12:12 PM EST Inhaled Oxygen Concentration - - Weight 97.5 kg (215 lb) 06/21/2013 9:13 AM EST Height 182.9 cm (6') 07/11/2013 6:54 AM EDT Body Mass Index 29.16 06/21/2013 9:13 AM EST Plan of Treatment Health Maintenance Due Date Last Done Comments HIV screening 1964 Hepatitis C screening 1969 Shingles vaccine (Shingrix) (1 of 2 - Shingrix (RZV) 2 Dose Standard Series) 2001 Diabetes screening 06/20/2016 06/20/2013 Lipid disorder screening 06/20/2018 06/20/2013, 07/2013 Covid-19 vaccine series ( season) 2023 07/22/2020, 06/19/2020 Influenza vaccine 12/18/2024 12/28/2023, , 12/17/2021, Additional history exists Tetanus adult (Td q 10,TDAP once) 12/27/2033 12/28/2023 Colon cancer screening, Colonoscopy 06/01/2034 06/01/2024, 06/01/2024, 06/21/2013, Additional history exists Pneumococcal Vaccine (50+ years) Completed 12/17/2021 RSV Immunization Completed 04/05/2023 Meningococcal Vaccine Aged Out No caesar albina eligible based on patient's age to complete this topic Medical Devices Implanted Type Area Butadiene Convertor Operator Device Identifier Shelf Expiration Date Model / Serial / Lot Mesh Parietex Progrip [id number] - Sn/A Implanted:Qty: 1 on 07/11/2013 by Stuart Richard MD at [address] Mesh [id number] / N/A / [id number] Procedures Procedure Name Priority Date/Time Associated Diagnosis Comments COLONOSCOPY (IMAGES) Routine 06/21/2013 7:20 AM EST COMPREHENSIVE METABOLIC PANEL Routine 06/20/2013 12:40 PM EST CHOLESTEROL, TOTAL Routine 06/20/2013 12 :40 PM EST from Last 3 Months or Most Recently Relevant to Health Maintenance Results * Colonoscopy (06/21/2013 7:20 AM EST) [facility] Endoscopy Patient Name: Fuad Robins ? Gender: Male Procedure Date: 06/21/2013 7:20 AM ? Date of : 1950 ?Age: 63 Admit Type: Outpatient ?Room: 1 ? Note Status: Finalized Attending MD: Cade Sosa MD ? Procedure Date no Time: 06/21/2013 Procedure: ? Colonoscopy Indications: ? Screening for colorectal malignant neoplasm Providers: ? Cade Sosa MD, Skye Waggoner RN (Nurse), Mary Arce ? MD Miquel (Anesthesia Staff), Keren Lilly CRNA ? (Anesthesia Staff) Referring MD: ?Anup Prince (Referring ), Stuart Richard MD ? (Referring ) Medicines: ? Propofol per Anesthesia Complications: ? No immediate complications. Requesting Provider: Procedure: ? After I obtained informed consent, the scope was passed ? under direct vision. Throughout the procedure, the ? patient's blood pressure, pulse, and oxygen saturations ? were monitored continuously. The -[id number] was ? introduced through the anus and advanced to the cecum, ? identified by appendiceal orifice & ileocecal valve. The ? colonoscopy was performed without difficulty. The ? patient tolerated the procedure well. The quality of the ? bowel preparation was good. ? Findings: ? Non-bleeding internal hemorrhoids were found, and they were moderate. ? A few diverticula were found in the sigmoid colon. ? A sessile polyp was found in the cecum. The polyp was diminutive in ? size. The polyp was removed with a cold biopsy forceps. Resection and ? retrieval were complete. Coagulation for hemostasis of bleeding caused ? by the procedure using hot biopsy forceps was successful. ? The exam was otherwise without abnormality. ? Impression: ?- Non-bleeding internal hemorrhoids. ? - Diverticulosis in the sigmoid colon. ? - One diminutive polyp in the cecum. Resected and ? retrieved. ? - The examination was otherwise normal. ? - Coagulation for hemostasis of bleeding caused by the ? procedure was successful. Recommendation: ?- Await pathology results. ? Procedure Code(s): ?? --- Professional --- ? 50843, Colonoscopy, flexible, proximal to splenic ? flexure; with biopsy, single or multiple Diagnosis Code(s): ?? --- Professional --- ? V76.51, Special screening for malignant neoplasms of ? colon ? 211.3, Benign neoplasm of colon ? 455.0, Internal hemorrhoids without mention of ? complication ? 562.10, Diverticulosis of colon (without mention of ? hemorrhage) CPT (R) 2012 [employer]. All Rights Reserved. The codes documented in this report are preliminary and upon him coder review may be revised to meet current compliance requirements. _ Cade Sosa MD 06/21/2013 11:38 AM This report has been signed electronically. Number of Addenda: 0 Note Initiated On: 06/21/2013 7:20 AM [facility] 06/21/2013 7:20 AM EST us Anup Prince MD GI PROCEDURE ORDERABLES Final Result Performing Organization Address City/[facility]/ZIP Co de Phone Number [facility] * Cholesterol, total (06/20/2013 12:40 PM EST) Cholesterol, Total 154 125 - 200 mg/dL [facility] 06/20/2013 12:4 0 PM EST 06/20/2013 12:46 PM EST Narrative [facility] - 06/23/2013 12:[address] RICHARD, CC DR SOSA FASTING Resulting Agency Comment Performing Organization Information: ?Site ID: [id number] ?Name[facility] ?Address: [address] [place] [address] [place] [address] ?Director: Sophie Nunez M.D. us Anup Prince MD LAB BLOOD ORDERABLES Final Re sult Performing Organization Address [facility]/ZIP Co de Phone Number [facility] [address] [place] [address] * Comprehensive metabolic panel (06/20/2013 12:40 PM EST) Glucose 92 65 - 99 mg/dL [facility] Comment: ? Fasting reference interval BUN 14 7 - 25 mg/dL [facility] Creatinine 1.07 0.70 - 1.25 mg/dL [facility] Comment: For patients >49 years of age, the reference limit for Creatinine is approximately 13% higher for people identified as -[place]. eGFR 74 > OR = 60 mL/min/1 .73m2 [facility] eGFR (Afr Amer) 86 > OR = 60 mL/min/1 .73m2 [facility] BUN/Creatinine Ratio NOT APPLICABLE 6 - 22 (calc) [facility] Sodium 140 135 - 146 mmol/L [facility] Potassium 4.3 3.5 - 5.3 mmol/L [facility] Chloride 103 98 - 110 mmol/L [facility] CO2 29 19 - 30 mmol/L [facility] Calcium 9.4 8.6 - 10.3 mg/dL [facility] Protein, Total 7.0 6.1 - 8.1 g/dL [facility] Albumin 4.7 3.6 - 5.1 g/dL [facility] Globulin 2.3 1.9 - 3.7 g/dL (calc) [facility] Albumin/Globulin Ratio 2.0 1.0 - 2.5 (calc) [facility] Bilirubin, Total 0.6 0.2 - 1.2 mg/dL [facility] Alkaline Phosphatase 70 40 - 115 U/L [facility] AST 25 10 - 35 U/L [facility] ALT 24 9 - 46 U/L [facility] 06/20/2013 12:4 0 PM EST 06/20/2013 12:46 PM EST Narrative [facility] - 06/23/2013 12:[address] RICHARD, CC DR SOSA FASTING Resulting Agency Comment Performing Organization Information: ?Site ID: [id number] ?Name: [facility] ?Address: [address] [place] [phone] ?Director: Sophie Nunez M.D. Anup Prince MD LAB BLOOD ORDERABLES Final Re sult [facility] [address] [place] [address] from Last 3 Months or Most Recently Relevant to Health Maintenance Insurance [employer] [place] Member Subscriber Plan / Payer (Ef fective 2024-Present) Name:Julienne Fuad Carol Relation to Subscriber:Self Name:Fuad Robins Payer ID:[id number] Group ID:Not on file Type:Not on file Address: [address] [place] [id number] [place] [facility] [place]ID [place] Advance Directives * Full Interventions (Latest Code Status on File) Date Activated Date Inactivated Comments 07/11/2013 8:57 AM 07/11/2013 2:52 PM Care Teams Peanut Shaker Relationship Specialty Start Date End Date Anup Prince MD PCP - General Internal Medicine 06/18/13
--- OUTSIDE RECORDS SUMMARY | 2024-07-20 15:43 | XMS_ITS | Encounter Summary ---
Author Organization [facility] Address [address] [place] [address] Care Team Providers Care Protective Signal Superintendent Name Role Phone Vito Contreras APRN Primary Care Provider [phone] Reason for Visit * Reason Comments Medication Refill Encounter Details Date Type Department Care Team (Late st Contact Info) Description 11/27/2022 Refill [facility] Department of [facility] [place] [address] [phone] Vito Contreras APRN [address] [place] [address] Low back pain, unspecified Social History Tobacco Use Types Packs/Day Years Used Date Smoking Tobacco: Never Assessed Sex and Gender Information Value Date Recorded Sex Assigned at Not on file Gender Identity Male 10/08/2022 11:36 AM EDT Sexual Orientation Not on file documented as of this encounter Miscellaneous Notes * Telephone Encounter - Parveen Jackson MA - 11/27/2022 3:11 PM EDT Needs an appointment documented in this encounter Plan of Treatment Not on file documented as of this encounter Visit Diagnoses Diagnosis Low back pain, unspecified documented in this encounter Care Teams Protective Signal Superintendent Relationship Specialty Start Date End Date Vito Contreras APRN [address] [place] [address] PCP - General Family Medicine 09/07/22 04/02/24 documented as of this encounter
--- OUTSIDE RECORDS SUMMARY | 2024-07-20 15:43 | XMS_ITS | Clinical Summary ---
Author Organization [facility] Address [address] [place] [address] Care Team Providers Care Choir Singer Name Role Phone Yaniv Mills MD Primary Care Provider [phone] Yaniv Mills MD Unavailable [phone] Heidi Avery MD Unavailable Allergies No known active allergies Medications coenzyme Q10 100 mg capsule Take 100 mg by mouth daily. Active omega-3 fatty acids 1,000 mg capsule Take 2 g by mouth in the morning. Active b complex vitamins (Super B-50 Complex) capsule Take 1 capsule by mouth in the morning. Active TURMERIC ORAL Take by mouth daily. Active UNABLE TO FIND Take 600 each by mouth in the morning. Alpha GPC Choline . Active UNABLE TO FIND MCT OIL Activ e UNABLE TO FIND daily. Shilajit Resin tsp/ 200 Active UNABLE TO FIND [place] 100% Acti ve UNABLE TO FIND [place] 100% w [place], cinnamon Active UNABLE TO FIND daily. [place] Oil Active UNABLE TO FIND CHLORELLA taken daily Active aspirin 81 mg EC tablet Take 81 mg by mouth in the morning. Active psyllium (Metamucil, with sugar,) 3.4 gram packet Take 1 packet by mouth in the morning and 1 packet before bedtime. 60 packet 11 4 09/24/19 25 Active Additional Information Patient not taking.Reported on 07/06/2024 tamsulosin (FLOMAX) capsule Take 1 capsule (0.4 mg total) by mouth in the morning. 90 capsule 1 4 Active ezetimibe (ZETIA) 10 mg tabletIndicatio ns:Coronary artery disease involving alutiiq heart, unspecified vessel or lesion type, unspecified whether angina present Take 1 tablet (10 mg total) by mouth in the morning. 30 tablet 11 4 04/07/20 25 Active atorvastatin (LIPITOR) 80 mg tablet TAKE 1 TABLET BY MOUTH EVERYDAY AT BEDTIME 90 tablet 1 5 Active esomeprazole (NexIUM) 20 mg capsule Take 1 capsule (20 mg total) by mouth Daily before breakfast. 90 capsule 1 5 Active Additional Information Patient not taking.Reported on 06/06/2024 triamcinolone (KENALOG) 0.1 % cream Apply topically 2 (two) times a day. Dx asteatotic eczema. Do not apply on face, eyes or genitalia. For 10-14 days. 80 g 5 Active Additional Information Patient not taking.Reported on 07/06/2024 vilazodone 20 mg tabletIndicatio ns:Moderate episode of recurrent major depressive disorder (HCC) TAKE 1 TABLET BY MOUTH EVERY DAY 90 tablet 5 Active acetaminophen (TylenoL) 325 mg tablet Take 650 mg by mouth Every 6 (six) hours. 30 tablet 5 Active ibuprofen 600 mg tablet Take 1 tablet (600 mg total) by mouth Every 6 (six) hours for 10 days. 40 tablet 5 07/02/19 25 oxyCODONE (ROXICODONE) 5 mg immediate release tablet Take 1 tablet (5 mg total) by mouth every 4 (four) hours as needed for moderate pain (4-7) for up to 3 days. Max Daily Amount: 30 mg 12 tablet 5 06/25/19 25 Active Problems Problem Noted Date Diagnosed Date Hot flashes 05/24/2024 Assessment & Plan (05/24/2024 12:01 AM EST): Patient presents with 1 month hx of episodic light-headedness and hot flashes in the setting of [place] food intake. No prior episodes in the past. Symptoms absent otherwise. No symptoms of anaphylaxis. No known allergies. Denies recent changes in diet/medication/insect bites. Hx of notable for worsening watery diarrhea with prior unrevealing workup. Patient presents with vasovagal symptoms in the setting of food intake; DDx at this time includes carcinoid syndrome (watery diarrhea, light-headedness with food intake) vs new-onset food allergy. Symptoms do not occur with intake of regular meals at home (making vascular compression I.e SMA syndrome less likely) -Maintain symptom and food diary to note any dietary triggers - 24 HR URINE 5 HIAA QUANT (Q); Future - Vasoactive Intestinal Polypeptide (VIP); Future - Gastrin level; Future - Allergens, food, comprehensive profile 1; Future - Allergen, food, corn; Future - Allergen, food, seafood profile; Future - Complete blood count (CBC) and differential; Future - 24 HR URINE 5 HIAA QUANT (Q) Abnormal computed tomography of abdomen and pelv is 02/25/2024 Assessment & Plan (02/25/2024 9:07 AM EST): -- 02/2024 CT abdomen/pelvis with esophageal thickening. Hx of GERD. Recommended adding on EGD to colonoscopy; pt agreeable RLQ abdominal pain 02/25/2024 Assessment & Plan (02/25/2024 9:14 AM EST): - Discussed given diverticulosis finding, recommended increasing Metamucil to 1 tsp BID with continued Miralax 1 capful once a day - We reviewed pt has no alarm symptoms. Pt was advised to contact GI clinic if abdominal pain persists; or develops any rectal bleeding/blood in stool, appetite loss, and/or unexplained weight loss. Advised if at any point he has severe or worsening abdominal pain, to return to the ED. Recommended following up with PCP otherwise, especially in regards to his main concern of his fatigue. Encouraged to follow-up with psych today as planned - Pt would like to try to move up his colonoscopy a month, if scheduling allows. I had him meet with our GI scheduling staff today Secondary hypercoagulable state 10/07/2023 Overview (10/07/2023): Secondary to atrial fibrillation Atherosclerosis of aorta 10/07/2023 Overview (10/07/2023): CT abdomen/pelvis 10/10/2021 Functional diarrhea 09/24/2023 Assessment & Plan (09/24/2023 2:04 PM EDT): Colonoscopy ordered. Screening for malignant neoplasm of colon 2023 Assessment & Plan (09/24/2023 2:05 PM EDT): You will be scheduled for a Colonoscopy exam for malignant neoplasm of colon. It is your responsibility to contact the GI Clinic if you have any changes in your health or medications prior to your GI exam. In some instances your procedure may need to be rescheduled depending on a new diagnosis. GI CLINIC: [phone] Risks and benefits of testing reviewed, including bleeding/infection/perforation. If you have medication changes prior to your colonoscopy, please call to update and review them with one of the GI nurses: [phone]. Your GI Tesing will be done at the PROCEDURE CENTER. The Procedure Center is located near the EMERGENCY ROOM, and park on the top deck of [address]. This area is reserved for patients on the day of their exam. Bowel Preparation (will cause you to have diarrhea): See handout for detailed instructions. Bowel Prep: Trilyte (prescription) 1 day prep with Dulcolax (OTC) Tips to help your Bowel prep be more successful: Stop Iron and Fiber supplements one week before your exam. 2. Reduce dietary fiber intake for one week before your exam (nuts, seeds, corn, peas etc). 3. Several days before your procedure eat light/soft foods to help with your bowel prep. 4. Keep yourself well hydrated. Day before testing, maintain hydration with a clear liquid diet (see handout), and take your regular medications unless directed otherwise. The day of the exam, take only the following medications with a sip of water: none Day of testing, no driving/working or decision making. You can not come via bus/taxi or Uber. If you come via medical cab, you will need to have someone accompany you. If you have young children in your home, make sure there is another adult available to provide supervision/care. It can take several days for your bowel movements to normalize following a colonoscopy. If you have biopsies or polyps removed, it can take up to 1-2 weeks to get the results. If you have an Abdominal Hernia, it is recommended that you purchase a Abdominal Binder to wear the day of your Colonoscopy exam. If you have a history of Asthma, your asthma needs to be well controlled in order to have your testing done. If you have any questions please call the GI Clinic [phone]. If you are diagnosed with Covid-19 or develop worrisome symptoms (cough/fever/chills/shortness or breath etc) prior to your GI Testing, please call the GI Clinic at [phone] It is your responsibility to obtain your prior GI records, including Colonoscopy/Endoscopy/Pathology/Lab results and fax them to my office. Other insomnia 08/05/2023 Assessment & Plan (08/05/2023 1:43 PM EDT): Discussed that treating his anxiety would help with his sleep disorder. Discussed that medication that we use for anxiety and depression, which mirtazapine is one of them, takes time to work. This medication would also help with sleep. Advised him to take the medication consistently every night. I will increase the dose to 50 mg from 7.5 mg. Advised to stay away from alcohol especially with his history of alcohol abuse in the past. Discussed that we do not want him to be on hydroxyzine every day long-term. I gave him a few tablets of hydroxyzine that he can use while we are waiting for the mirtazapine to work. Advised to keep his appointment with Dr. Mills on 08/15 for reassessment if this medication is working for him and to discuss if he needs to change to something else. Anxiety 08/05/2023 Assessment & Plan (08/05/2023 1:43 PM EDT): Discussed that treating his anxiety would help with his sleep disorder. Discussed that medication that we use for anxiety and depression, which mirtazapine is one of them, takes time to work. This medication would also help with sleep. Advised him to take the medication consistently every night. I will increase the dose to 50 mg from 7.5 mg. Advised to stay away from alcohol especially with his history of alcohol abuse in the past. Discussed that we do not want him to be on hydroxyzine every day long-term. I gave him a few tablets of hydroxyzine that he can use while we are waiting for the mirtazapine to work. Advised to keep his appointment with Dr. Mills on 08/15 for reassessment if this medication is working for him and to discuss if he needs to change to something else. History of alcohol use disorder 05/24/2019 Assessment & Plan (05/24/2019 12:10 PM EST): No history of withdrawal seizures or hospitalization for withdrawal. EtOH level , 10, ?last drink several hours ago. - Started CIWA protocol with PRN ativan 05/24 - he did not go through significant w/d here and states that he is in the process of weaning himself off from alcohol at home Assessment & Plan (05/24/2019 3:48 AM EST): No history of withdrawal seizures or hospitalization for withdrawal. EtOH level , 10, ?last drink several hours ago. - Started CIWA protocol with PRN ativan Atrial fibrillation with RVR 05/23/2019 Assessment & Plan (05/24/2019 12:09 PM EST): New onset atrial fibrillation with rates in 110s on 10 mL/h diltiazem drip. BP in 140s. He is currently slightly symptomatic with palpitations CHADSVASC score of 1 for age. This is likely 2/2 alcohol withdrawal D/D secondary to alcohol withdrawal, ischemia, alcohol induced cardiomyopathy, valvular heart disease, worsening ADONAY - Trend troponin x 2 - titrate down Diltiazem drip @ 10 ml/hr with HR goal of <120, will consider starting metoprolol to wean - follow up TTE to exclude structural abnormalities - will keep NPO for possible cardioversion - No anticoagulation at this point - F/u CXR, LFTs, lipids and coagulation profile 05/24 - converted spontaneously to NSR overnight; now off cardizem gtt and short active oral cardizem given this morning; will start aspirin 81 mg daily and d/c home on Cardizem CD 120 mg daily. Echo was normal. Assessment & Plan (05/24/2019 4:01 AM EST): New onset atrial fibrillation with rates in 110s on 10 mL/h diltiazem drip. BP in 140s. He is currently slightly symptomatic with palpitations CHADSVASC score of 1 for age. This is likely 2/2 alcohol withdrawal D/D secondary to alcohol withdrawal, ischemia, alcohol induced cardiomyopathy, valvular heart disease, worsening ADONAY - Trend troponin x 2 - titrate down Diltiazem drip @ 10 ml/hr with HR goal of <120, will consider starting metoprolol to wean - follow up TTE to exclude structural abnormalities - will keep NPO for possible cardioversion - No anticoagulation at this point - F/u CXR, LFTs, lipids and coagulation profile GERD (gastroesophageal reflux disease) 4 Dysphagia 06/13/2013 Inguinal hernia 06/13/2013 High cholesterol Encounters Date Type Department Care Team Description 07/06/2024 9:00 AM EDT Follow-Up [facility] Department of General Surgery [address] [place] [address] Heidi Avery MD Surgery follow-up (Primary Dx) 06/30/2024 Orders Only [facility] of Gastroenterology [address] [place] [address] Aundrea Varner APRN Ulcer of esophagus without bleeding (Primary Dx) 06/21/2024 8:30 AM EST - 06/21/2024 12:30 PM EST Surgery [facility] Operating Room Services [address] [place], [place] [id number] Heidi Avery MD REPAIR, HERNIA, INGUINAL, ROBOT-ASSISTED, WITHOUT HISTORY OF PRIOR REPAIR, LAPAROSCOPIC [22026 (CPT??)] 06/21/2024 7:01 AM EST - 06/21/2024 3:00 PM EST Hospital Encounter [facility] Operating Room Services [address] [place] [phone] Heidi Avery MD Discharge Disposition: Home or Self Care 06/20/2024 10:00 AM EST Lab [facility] Laboratory Draw Station [address] [place] [phone] Immunity status testing 06/19/2024 Orders Only [facility] Department of Internal Medicine [address] [place] [phone] Aminta Lujan MD Immunity status testing (Primary Dx) 06/12/2024 10:30 AM EST Office Visit [facility] Department of Psychiatry [address] [place] [address] Melanie Murphy APRN BERENICE (generalized anxiety disorder) (Primary Dx); History of alcohol use disorder; Other insomnia; Moderate episode of recurrent major depressive disorder (HCC) 06/12/2024 9:40 AM EST Office Visit [facility] Department of Internal Medicine [address] [place] [address] Yaniv Mills MD Positive CAMILLE (antinuclear antibody) (Primary Dx); Positive double stranded DNA antibody test 06/06/2024 9:20 AM EST Lab [facility] Laboratory Draw Station [address] [place] [address] Tiredness; Skin rash 06/06/2024 8:20 AM EST Consult [facility] Department of Internal Medicine [address] [place], [place] [phone] Yaniv Mills MD Preoperative examination (Primary Dx); Tiredness; Skin rash 06/02/2024 Orders Only [facility] Department of Internal Medicine [address] [place] [phone] Yaniv Mills MD Hot flashes (Primary Dx) 06/01/2024 1:05 PM EST - 06/01/2024 2:10 [place] [address] Abiel Black MD EGD (ESOPHAGOGASTRODUODE NOSCOPY) [71023 (CPT??)] 06/01/2024 11:50 AM EST - 06/01/2024 3:37 PM EST Hospital Encounter [address] [address] Abiel Black MD Functional diarrhea Discharge Disposition: Home or Self Care 05/23/2024 11:45 AM EST Lab [facility] Laboratory Draw Station [address] [place] [phone] Inguinal hernia without obstruction or gangrene, recurrence not specified, unspecified laterality; Hot flashes 05/23/2024 10:40 AM EST Office Visit [facility] Department of Internal Medicine [address] [place] [address] Yaniv Mills MD Hot flashes (Primary Dx) from Last 3 Months Immunizations Immunization Administration Dates Next Due Influenza Vaccine 65y and older 12/17/2021 Influenza Vaccine, Quadrivalent, Adjuvanted 12/19 Influenza, High Dose Seasonal 12/28/2023 Influenza, Unspecified 06/07/2013 PNEUMOCOCCAL CONJUGATE PCV-20 12/17/2021 RSV Recombinant 04/05/2023 Tdap 12/28/2023 Family History Medical History Relation Comments Heart disease Father No Known Problems Sister Cancer Neg Hx Colon cancer Neg Hx Esophageal cancer Neg Hx Stomach cancer Neg Hx Relation Status Comments Father Mother Sister Alive Social History Tobacco Use Types Packs/Day Years Used Date Smoking Tobacco: Former Cigarettes 0.5 59.2 S tarted: 1967 Passive Smoke Exposure: Never Smokeless Tobacco: Former Snuff Quit: 1975 Tobacco Cessation:Counseling Given: Not Answered Comments:Ex smoker, tried during teenage for few months. Alcohol Use Standard Drinks/Week Comments Not Currently 0 (1 standard drink = 0.6 oz pure alcohol) Ex alochol use, used to drink heavily for 7 years and quit 3 years back, later drinking on and off but stopped since last one month. [facility] Utilities Answer Date Recorded In the past 12 months has th e [employer], gas, oil, or water [employer] threatened to shut off services in your home? No 07/20/2024 Overall Financial Resource Strain (CARDIA) Answe r Date Recorded How hard is it for you to pa y for the very basics like food, housing, medical care, and heating? Not very hard 07/20/2024 PHQ-2 Answer Date Recorded PHQ-2 Score 3 06/12/2024 Exercise Vital Sign Answer Date Recorde d On average, how many days pe r week do you engage in moderate to strenuous exercise (like a brisk walk)? 1 day 08/16/2023 On average, how many minutes do you engage in exercise at this level? 20 min 08/16/2023 Hunger Vital Sign Answer Date Recorded Within the past 12 months, y ou worried that your food would run out before you got the money to buy more. Never true 07/21/19 25 Within the past 12 months, t he food you bought just didn't last and you didn't have money to get more. Never true 07/20/2024 PRAPARE - Transportation Answer Date Re corded In the past 12 months, has l ack of transportation kept you from medical appointments or from getting medications? No 07/20/2024 Lack of Transportation (Non-Medical) Not on file 07/20/2024 Housing Stability Vital Sign Answer Bert e Recorded In the last 12 months, was t here a time when you were not able to pay the mortgage or rent on time? No 07/20/2024 In the past 12 months, how m any times have you moved where you were living? 0 07/20/2024 At any time in the past 12 m [facility], were you homeless or living in a nursing home (including now)? No 07/20/2024 Sex and Gender Information Value Date Recorded Sex Assigned at Male 08/05/2023 1:20 PM EDT Legal Sex Male 9:50 PM EST Gender Identity Male 07/22/2023 8:59 AM EDT Sexual Orientation Straight 07/22/2023 8: 59 AM EDT COVID-19 Exposure Response Date Recorded In the last 10 days, have yo u been in contact with someone who was confirmed or suspected to have Coronavirus/COVID-19? No / Unsure 07/06/2024 8:49 AM EDT Last Filed Vital Signs Vital Sign Reading Time Taken Comments Blood Pressure 114/75 07/06/2024 9:36 AM EDT Pulse 71 07/06/2024 9:36 AM EDT Temperature 36.6 ??C (97.8 ??F) 06/21/2024 2:00 PM ES T Respiratory Rate 11 06/21/2024 12:35 PM EST Oxygen Saturation 93% 06/21/2024 2:00 PM EST Inhaled Oxygen Concentration - - Weight 94.8 kg (209 lb) 07/06/2024 9:36 AM EDT Height 185.4 cm (6' 1 ) 07/06/2024 9:36 AM EDT Body Mass Index 27.57 07/06/2024 9:36 AM EDT Plan of Treatment Upcoming Encounters Date Type Department Care Team (Late st Contact Info) Description 07/25/2024 11:20 AM EDT Office Visit [facility] of Internal Medicine [address] [place] [address] Yaniv Mills MD [address] [address] 07/27/2024 10:30 AM EDT Office Visit [facility] of Dermatology [address] [place] [phone] Tee Carey MD [address] [place] [address] [place] [address] 08/14/2024 8:00 AM EDT Office Visit [facility] of Rheumatology [address] [place] [address] Lili Dean MD [facility] [address] [place] [phone] 09/18/2024 2:15 PM EDT Office Visit [facility] of Ophthalmology [address] [place] [phone] Sara Hairston MD [address] [place], [place] [address] [phone] Scheduled Procedures Name Priority Associated Diagnoses Date/Ti me EGD, WITH BIOPSY Ulcer of esophagus without bleeding Health Maintenance Due Date Last Done Comments CT Colonography 1950 FIT-DNA (Cologuard) 1950 FIT 1950 FOBT 1950 Flex Sigmoidoscopy - 6y 1950 Medicare Annual Wellness (AWV) 1950 Zoster Vaccines (1 of 2) 2001 COVID-19 Vaccine ( season) 2024 12/28/2023, 01/15/2023, 08/13/2022, Additional history exists Colonoscopy 06/01/2029 06/01/2024, 06/21/2013 Colorectal Cancer Screening 06/01/2029 DTaP,Tdap,and Td Vaccines (2 - Td or Tdap) 12/27/2033 12/28/2023 Pneumococcal Vaccine, 50+ Years Completed 12/17/2021 HIV Screening Completed 09/17/2023 Hepatitis C Screening Completed 09/17/2023 Influenza Vaccine Completed 12/28/2023, , 12/17/2021, Additional history exists HPV Vaccines Aged Out No longer eligi ble based on patient's age to complete this topic Hepatitis A Vaccines Aged Out No long er eligible based on patient's age to complete this topic Meningococcal Vaccine Aged Out No caesar albina eligible based on patient's age to complete this topic Medical Devices Implanted Type Area Mother Superior Device Identifier Shelf Expiration Date Model / Serial / Lot 4in X 6in (10cm X 15cm) Large, Right 3dmax Mesh - [id number] Implanted:Qty : 1 on 06/21/2024 by Heidi Avery MD at [facility] Mesh Implant Right: Abdomen Davol, a [employer] 08/14/2028 [id number] / / [id number] Procedures Procedure Name Priority Date/Time Associated Diagnosis Comments LIPID PANEL, REFLEX TO LDL CHOLESTEROL, DIRECT Routine 07/05/2024 1:25 PM EDT Coronary artery disease involving alutiiq heart, unspecified vessel or lesion type, unspecified whether angina present NH AN ELECTIVE ENDOTRACHEAL AIRWAY Routine 06/21/2024 8:48 AM EST NH LAPAROSCOPY SURG RPR INIT IAL INGUINAL HERNIA 06/21/2024 8:26 AM EST Inguinal hernia without obstruction or gangrene, recurrence not specified, unspecified laterality MEASLES ANTIBODY, IGG Routine 06/20/2024 9:59 AM EST Immunity status testing CREATINE KINASE Routine 06/12/2024 10:07 AM EST Positive CAMILLE (antinuclear antibody) Positive double stranded DNA antibody test ANTINUCLEAR ANTIBODY (CAMILLE) QUALITATIVE, REFLEX TO TITER Routine 06/12/2024 10:07 AM EST Positive CAMILLE (antinuclear antibody) VASOACTIVE INTESTINAL POLYPEPTIDE (VIP) Routine 06/12/2024 10:07 AM EST Hot flashes COMPLETE BLOOD COUNT WITH AU TO DIFFERENTIAL Routine 06/06/2024 9:22 AM EST Tiredness Skin rash SEDIMENTATION RATE Routine 06/06/2024 9:22 AM EST Skin rash RHEUMATOID FACTOR Routine 06/06/2024 9:22 AM EST Skin rash DSDNA (CRITHIDIA LUCILIAE) A B IGG BY IFA Routine 06/06/2024 9:22 AM EST Skin rash CYCLIC CITRULLINATED PEPTIDE ANTIBODY Routine 06/06/2024 9:22 AM EST Skin rash ANTINUCLEAR ANTIBODY (CAMILLE) QUALITATIVE, REFLEX TO TITER Routine 06/06/2024 9:22 AM EST Skin rash TSH Routine 06/06/2024 9:22 AM EST Tiredness Skin rash MAGNESIUM Routine 06/06/2024 9:22 AM EST Tiredness Skin rash COMPREHENSIVE METABOLIC PANEL Routine 9:22 AM EST Tiredness Skin rash COMPLETE BLOOD COUNT AND DIFFERENTIAL Routine 06/06/2024 9:22 AM EST Tiredness Skin rash ECG 12-LEAD Routine 06/06/2024 8:22 AM EST Preoperative examination COLONOSCOPY Routine 06/01/2024 2:05 PM EST Functional diarrhea SURGICAL SPECIMEN EXAM Routine 1:47 PM EST Functional diarrhea NH COLONOSCOPY FLX DX W/IRINA J SPEC WHEN PFRMD 06/01/2024 1:38 PM EST Functional diarrhea Special Needs Tri-lyte/non-diab NH ESOPHAGOGASTRODUODENOSCOP Y TRANSORAL DIAGNOSTIC 06/01/2024 1:38 PM EST Functional diarrhea Special Needs Tri-lyte/non-diab UPPER GI ENDOSCOPY Routine 06/01/2024 1:25 PM EST Functional diarrhea 24 HR URINE 5 HIAA QUANT (Q) Routine 01/2025 9:06 AM EST Hot flashes COMPLETE BLOOD COUNT WITH AU TO DIFFERENTIAL Routine 05/23/2024 11:44 AM EST Hot flashes COMPLETE BLOOD COUNT AND DIFFERENTIAL Routine 05/23/2024 11:44 AM EST Hot flashes ALLERGEN, FOOD, SEAFOOD PROFILE Routine 05/23/2024 11:44 AM EST Hot flashes ALLERGEN, FOOD, CORN Routine 05/23/2024 11:44 AM EST Hot flashes ALLERGEN, FOOD, COMPREHENSIV E PROFILE 1 Routine 05/23/2024 11:44 AM EST Hot flashes GASTRIN LEVEL Routine 05/23/2024 11:44 AM EST Hot flashes VASOACTIVE INTESTINAL POLYPEPTIDE (VIP) Routine 05/23/2024 11:44 AM EST Hot flashes PROTHROMBIN TIME (PT) WITH INR Routine 0 05/23/2024 11:44 AM EST Inguinal hernia without obstruction or gangrene, recurrence not specified, unspecified laterality BASIC METABOLIC PANEL Routine 05/23/2024 11:44 AM EST Inguinal hernia without obstruction or gangrene, recurrence not specified, unspecified laterality HEPATITIS C ANTIBODY Routine 09/17/2023 10:18 AM EDT Annual physical exam HIV COMBO ANTIGEN/ANTIBODY Routine 09/16 10:18 AM EDT Annual physical exam from Last 3 Months or Most Recently Relevant to Health Maintenance Results * Lipid paneL, reflex to LDL cholesterol, direct (07/05/2024 1:25 PM EDT) [facility] Triglycerides 83 mg/dL 07/05/2024 3:18 PM EDT [facility] Comment: Normal: ? Less than 150 mg/dL ? Borderline High: ?150 - 199 mg/dL ? High: ? 200 - 500 mg/dL ? Very High: ?Greater than 500 mg/dL ? Recommendations Adult Treatment Panel CDC: NIH Pub No [id number] 3rd report Lani Chol Ed Prog (NCEP) Expert Panel on Detec, Eval, and Treat of High Chol in Adults, August 2000. ?? Cholesterol, Total 188 mg/dL 2024 3:18 PM EDT [facility] Comment: Desirable ?Less than 200 mg/dL ? Borderline High ?200 - 239 mg/dL ? High ? 240 mg/dL or higher Recommendations Adult Treatment Panel CDC: ??NIH Pub No [id number] 3rd report Lani Chol Ed Prog (NCEP) Expert Panel on Detec, Eval, and Treat of High Chol in Adults, August 2000. (2013)Recommendations: [place] Heart Association/[place] College of Cardiology guidelines for cardiovascular/stroke risk are based on age, sex, race, total cholesterol, HDL cholesterol, blood pressure, blood pressure medication use, diabetes and smoking status. An AHA/ACC risk calculator can be found at http://www.cvrisTogether Mobilealculator.Parascale. Cholesterol, HDL 64 mg/dL 07/06/19 3:18 PM EDT [facility] Comment: High ?60 mg/dL or higher ? Low ? Less than 40 mg/dL ? Recommendations Adult Treatment Panel CDC: NIH Pub No 01 3670 3rd report Lani Chol Ed Prog (NCEP) Expert Panel ??on Detec, Eval, and Treat of High Cho in Adults, August 2000. (2013) Recommendations: [place] Heart Association/[place] College of Cardiology guidelines for cardiovascular/stroke risk are based on age, sex, race, total cholesterol, HDL cholesterol, blood pressure, blood pressure medication use, diabetes and smoking status. An AHA/ACC risk calculator can be found at http://www.cvriskcalculator.com. Fasting Specimen Yes 07/06/19 3:18 PM EDT [facility] LDL Calculated 107 mg/dL 07/05/2024 3:18 PM EDT [facility] Comment: Optimal ?Less than 100 mg/dL New optimal/above optimal ??100 - 129 mg/dL Borderline high ?130 - 159 mg/dL High ? 160 - 189 mg/dL Very high ?190 mg/dL or higher Blood Venous blood specimen / Unknown Venipuncture / Unknown 07/05/2024 1:25 PM EDT 07/05/2024 1:26 PM EDT us Georgie Ware MD LAB BLOOD ORDERABLES NO STAT Fin al Result [facility] [address] [place] [address], * [place] AN ELECTIVE ENDOTRACHEAL AIRWAY (06/21/2024 8:48 AM EST) Narrative Walter Milligan APRN - 06/21/2024 8:48 AM EST Walter Milligan APRN ? 06/21/2024 ??8:48 AM Airway - In OR Date/Time: 06/21/2024 8:48 AM General Information and Staff Authorized by: Elan Capps MD Performed by: Walter Milligan APRN, POWER DISTRIBUTOR Final Airway Details Final airway type: endotracheal airway Successful airway: ETT/Oral Successful intubation technique: direct laryngoscopy Facilitating devices/methods: intubating stylet Endotracheal tube insertion site: oral Blade: Yamileth Blade size: #3 ETT size (mm): 8.0 Cormack-Lehane Classification: grade II - visualization of posterior part of the laryngeal aperture (4%) Placement verified by: chest auscultation and capnometry Measured from: lips ETT to lips (cm): 23 Number of attempts at approach: 1 Indications and Patient Condition Preoxygenated: yes Mask difficulty assessment: 1 - easy mask Elan Capps MD ANESTHESIA ORDERABLES Final Result * Measles antibody IgG (06/20/2024 9:59 AM EST) MEASLES IgG 119.0 AU/mL 06/21/2024 10:53 AM EST [facility] Comment: Reference Interval: Measles Antibody, IgG AU/mL Value ?Result ? Interpretation <13.5 AU/mL ? Negative ?Absence of detectable measles virus ?IgG antibodies. A negative result ?generally indicates that the patient ?has not been infected and is ?susceptible to measles. If the ?subject has no history of measles, ?has not been previously vaccinated ?and exposure to measles virus is ?suspected despite a negative finding, ?a second sample should be collected ?and tested within one to two weeks ?later. >=13.5 and ? Equivocal ?This sample has been repeated in house. <16.5 AU/mL ? Recommended repeat testing with a ?new sample collected 10-14 days after ?initial testing. >=16.5 AU/mL ? Positive ? Presence of detectable measles virus ?IgG antibodies. A positive result ?generally indicates exposure to ?measles virus or previous vaccination. Blood Venous blood specimen / Unknown Venipuncture / Unknown 06/20/2024 9:59 AM EST 06/20/2024 10:01 AM EST us Aminta Lujan MD LAB BLOOD ORDERABLES NO STA T Final Result [facility] [address] [place] [address], [place] [phone] * Vasoactive Intestinal Polypeptide (VIP) (06/12/2024 10:07 AM EST) Only the most recent of2 resultswithin the time period is included. Vasoactive Intestinal Polypeptide (VIP) 25 <36 pg/mL 06/23/2024 10:40 AM EST [facility] [employer] [facility] Comment: This test was developed and its performance characteristics determined by [employer]. Values obtained with different methods, laboratories, or kits cannot be used interchangeably with the results on this report. The results cannot be interpreted as absolute evidence of the presence or absence of malignant disease. Specimen Type PLASMA/LA [employer] B[employer]OR 06/23/2024 10:40 AM EST [facility] Blood Venous blood specimen / Unknown Venipuncture / Unknown 06/12/2024 10:07 AM EST 06/12/2024 10:10 AM EST [facility] - 06/23/2024 10:40 AM EST Performing Organization Information: ?Site ID: INS ?Name: [facility] ?Address: [address] [place] [id number] ?Director: Aristeo Nash MD,PhD Yaniv Mills MD LAB BLOOD ORDERABLES NO S TAT Final Result [facility] [employer] [facility] * (ABNORMAL) Antinuclear Antibody (CAMILLE) Qualitative, Reflex to Titer (06/12/2024 10:07 AM EST) Only the most recent of2 resultswithin the time period is included. Antinuclear Antibody (CAMILLE),Qualitative Positive(A) Negative 06/13/2024 12:00 PM EST [facility] Comment:Result is obtained u sing the NOVA Lite HEp-2 CAMILLE indirect immunofluorescence assay Antinuclear antibody (CAMILLE) Titer 1:80 1:80 Titer 06/13/2024 12:00 PM EST [facility] Antinuclear antibody (CAMILLE) Pattern Homogeneous 06/13/2024 12:00 PM EST [facility] Blood Venous blood specimen / Unknown Venipuncture / Unknown 06/12/2024 10:07 AM EST 06/12/2024 10:10 AM EST Narrative [facility] - 06/13/2024 12:00 PM EST CAMILLE is the inital evaluation of patients with systemic autoimmune rheumatic diseases. CAMILLE are screened and titered against HEp-2 cells. The nuclear patterns and titers reported include homogenous, speckled, centromere, nucleolar, and nuclear dots. If observed, cytoplasmic patterns reported are limited to AMA (antimitochondrial antibody) and SMA (smooth muscle antibody). Since CAMILLE lack diagnostic specificity, positive results should be confirmed with specific antibodies that target extractable nuclear antigens. Yaniv Mills MD LAB BLOOD ORDERABLES NO S TAT Final Result [facility] [address] [place] [address], [place] [phone] * Creatine kinase (06/12/2024 10:07 AM EST) [facility] Total CK 132 22 - 269 U/L 06/12/2024 1:04 PM EST [facility] Blood Venous blood specimen / Unknown Venipuncture / Unknown 06/12/2024 10:07 AM EST 06/12/2024 10:10 AM EST Yaniv Mills MD LAB BLOOD ORDERABLES Radha l Result [facility] [address] [place] [address], [place] [phone] * (ABNORMAL) dsDNA (Crithidia luciliae) Ab IgG by IFA (06/06/2024 9:22 AM EST) Pathologist [facility] Double-Stranded DNA (dsDNA) Ab IgG IFA 1:20(H) <1:10 06/09/2024 10:15 PM EST [facility] Comment: INTERPRETIVE INFORMATION: Double-Stranded DNA (dsDNA) Antibody, IgG by IFA (using Crithidia luciliae) Positivity for anti-double stranded DNA (anti-dsDNA) IgG antibody is a diagnostic criterion of systemic lupus erythematosus (SLE). The presence of the anti-dsDNA IgG antibody is identified by IFA titer (Crithidia luciliae indirect fluorescent test [BIN]). BIN is highly specific for SLE with a sensitivity of 50-60 percent. Some patients with early or inactive SLE may be positive for anti-dsDNA IgG by FAWN but negative by BIN. If the BIN result is negative but the patient has a positive FAWN and clinical suspicion remains, consider antinuclear antibody (CAMILLE) testing by IFA. Additional information and recommendations for testing may be found at [email or web address]. Performed By: [employer] [address] [place] [id number] Supervisor Denture Department: John Priest MD, PhD CLIA Number: [id number] Blood Venous blood specimen / Unknown Venipuncture / Unknown 06/06/2024 9:22 AM EST 06/06/2024 9:22 AM EST us Yaniv Mills MD LAB BLOOD ORDERABLES NO S TAT Final Result [facility] [facility] [address] [place] [address] * (ABNORMAL) Complete Blood Count with Auto Differential (06/06/2024 9:22 AM EST) Only the most recent of2 resultswithin the time period is included. White Cell Count 6.7 3.8 - 10.6 10*3/uL 06/06/2024 10:34 AM EST [facility] Red Cell Count 4.80 4.40 - 5.90 10*6/??L 06/06/2024 10:34 AM EST [facility] Hemoglobin 15.1 13.0 - 18.0 g/dL 06/06/2024 10:34 [address] [facility] Hematocrit 46.0 40.0 - 52.0 % 06/06/2024 10:34 AM [facility] MCV 95.8 80.0 - 100.0 fL 06/06/2024 10:34 AM [facility] MCH 31.5 26.0 - 34.0 pg 06/06/2024 10:34 AM [facility] MCHC 32.8 32.0 - 36.0 g/dL 06/06/2024 10:34 AM [facility] RBC Distribution Width 12.7 11.6 - 14.8 % 06/06/2024 10:34 AM [facility] Platelet count 211 150 - 440 10*3/uL 06/06/2024 10:34 AM [facility] Neutrophils 53.6 40.0 - 70.0 % 06/06/2024 10:34 AM [facility] Immature Granulocytes 0.1 0.0 - 0.6 % 06/06/2024 10:34 AM [facility] Lymphocytes 31.2 20.0 - 50.0 % 06/06/2024 10:34 AM [facility] Monocytes 9.0 4.0 - 12.0 % 06/06/2024 10:34 AM [facility] Eosinophils 5.4 0.0 - 6.0 % 06/06/2024 10:34 AM [facility] Basophils 0.7 0.0 - 2.0 % 06/06/2024 10:34 AM [facility] Absolute Neutrophil Ct. 3.6 1.4 - 6.3 10*3/uL 06/06/2024 10:34 AM [facility] Absolute Lymphocyte Ct. 2.1 0.7 - 4.5 10*3/uL 06/06/2024 10:34 AM [facility] Absolute Monocyte Ct. 0.6 0.2 - 0.8 10*3/uL 06/06/2024 10:34 AM EST [facility] Absolute Eosinophil Ct. 0.4(H) 0.0 - 0.3 10*3/uL 06/06/2024 10:34 AM EST [facility] Absolute Basophil Ct. 0.1 0.0 - 0.2 10*3/uL 06/06/2024 10:34 AM EST [facility] nRBC 0.0 0.0 - 0.0 % 06/06/2024 10:34 AM EST [facility] Blood Venous blood specimen / Unknown Venipuncture / Unknown 06/06/2024 9:22 AM EST 06/06/2024 9:22 AM EST Yaniv Mills MD LAB BLOOD ORDERABLES Radha l Result Performing Organization Address City/[facility] Co de Phone Number [facility] [address] [place] [address], * Cylic Ctrullinated Peptide Antibody (06/06/2024 9:22 AM EST) Cyclic Citrullinated Peptide Antibody 7 Units 06/09/2024 12:20 PM EST [facility] Blood Venous blood specimen / Unknown Venipuncture / Unknown 06/06/2024 9:22 AM EST 06/06/2024 9:22 AM EST Narrative [facility] - 06/09/2024 12:20 PM EST Negative ?<20 ?? Units Weak Positive ? 20-39 Units Moderate Positive 40-59 Units Strong Positive ?? >59 ?? Units Yaniv Mills MD LAB BLOOD ORDERABLES NO S TAT Final Result Performing Organization Address City/[facility]/ZIP Co de Phone Number [facility] [address] [place] [address], * Sedimentation rate (06/06/2024 9:22 AM EST) [facility] Sedimentation Rate 3 0 - 15 mm 2024 10:53 AM EST [facility] Blood Venous blood specimen / Unknown Venipuncture / Unknown 06/06/2024 9:22 AM EST 06/06/2024 9:22 AM EST Yaniv Mills MD LAB BLOOD ORDERABLES Radha l Result [facility] [address] [place] [address], * Rheumatoid factor (06/06/2024 9:22 AM EST) [facility] Rheumatoid Factor Qualitative Negative Negative 06/07/2024 9:46 AM EST [facility] Comment:Negative results ind icate RF values < 8 IU/mL Blood Venous blood specimen / Unknown Venipuncture / Unknown 06/06/2024 9:22 AM EST 06/06/2024 9:22 AM EST Narrative [facility] - 06/07/2024 9:46 AM EST Performed by manual agglutination using an FDA-cleared assay (SureVue RF) verified by [facility]. ??Negative results do not exclude the possibility of rheumatoid arthritis, whereas positive results do not confirm the diagnosis. ??Testing for anti-citrullinated protein (anti-CCP) antibody may also be considered. us Yaniv Mills MD LAB BLOOD ORDERABLES NO S TAT Final Result [facility] [address] [place] [address], [place] [phone] * TSH (06/06/2024 9:22 AM EST) [facility] TSH 3.02 0.35 - 4.94 uIU/mL 06/06/2024 11:10 AM EST [facility] Blood Venous blood specimen / Unknown Venipuncture / Unknown 06/06/2024 9:22 AM EST 06/06/2024 9:22 AM EST Yaniv Mills MD LAB BLOOD ORDERABLES NO S TAT Final Result Performing Organization Address City/[facility]/ZIP Co de Phone Number [facility] [address] [place] [address], [place] [phone] * Magnesium (06/06/2024 9:22 AM EST) Magnesium 2.0 1.8 - 3.0 mg/dL 06/06/2024 10:40 AM EST [facility] Blood Venous blood specimen / Unknown Venipuncture / Unknown 06/06/2024 9:22 AM EST 06/06/2024 9:22 AM EST Yaniv Mills MD LAB BLOOD ORDERABLES Radha l Result Performing Organization Address City/[facility] Co de Phone Number [facility] [address] [place] [address], * Comprehensive metabolic panel (06/06/2024 9:22 AM EST) Total Bilirubin 1.1 0.1 - 1.2 mg/dL 06/06/2024 10:40 AM EST [facility] Calcium 10.1 8.4 - 10.2 mg/dL 06/06/2024 10:40 AM EST [facility] CO2 29 23 - 32 mmol/L 06/06/2024 10:40 AM EST [facility] Chloride 105 100 - 111 mmol/L 06/06/2024 10:40 AM EST [facility] Creatinine 1.10 0.60 - 1.20 mg/dL 06/06/2024 10:40 AM [facility] Glucose 86 70 - 200 mg/dL 06/06/2024 10:40 AM [facility] Comment: Normal fasting glucose ?75-99 mg/dL Impaired fasting glucose ?100 - 125 mg/dL Fasting glucose ? >125 mg/dL - provisional diagnosis of diabetes mellitus Random glucose ?>= 200 mg/dl is considered diagnostic for diabetes ADA Guidelines: Classification and Diagnosis of Diabetes: Standards of Medical Care in Diabetes - 2020, Diabetes Care 2020; S15-S33. Alkaline Phosphatase 89 39 - 113 U/L 06/06/2024 10:40 AM [facility] Potassium 4.2 3.6 - 5.1 mmol/L 06/06/2024 10:40 AM [facility] Sodium 142 137 - 144 mmol/L 06/06/2024 10:40 AM [facility] Anion gap 8 3 - 11 mmol/L 06/06/2024 10:40 AM [facility] AST 31 17 - 35 U/L 06/06/2024 10:40 AM [facility] ALT (SGPT) 27 8 - 39 U/L 06/06/2024 10:40 AM [facility] BUN 9 8 - 24 mg/dL 06/06/2024 10:40 AM [facility] Albumin 4.9 3.8 - 5.3 g/dL 06/06/2024 10:40 AM [facility] eGFR 71 >60 mL/min/1. 73m*2 06/06/2024 10:40 AM [facility] Comment: Calculation based on the Chronic Kidney Disease Epidemiology Collaboration (CKD-EPI) equation refit without adjustment for race. ? Chronic Kidney Disease less than 60 ml/min/1.73 m2 ? Kidney Failure less than 15 ml/min/1.73 m2 ? Age (Years) ? Average GFR ? 20 - 29 ? 116 ml/min/1.73 m2 ? 30 - 39 ? 107 ml/min/1.73 m2 ? 40 - 49 ?99 ml/min/1.73 m2 ? 50 - 59 ?93 ml/min/1.73 m2 ? 60 - 69 ?85 ml/min/1.73 m2 ? 70 + ? 75 ml/min/1.73 m2 ? Pursuant to [place] Public Act 06-120(1)(b)(1). ?? The 2020 CKD-EPI calculation used to estimate eGFR has only been validated for patients 18 years or older. Total Protein 7.4 6.2 - 8.1 g/dL 06/06/2024 10:40 AM EST [facility] Blood Venous blood specimen / Unknown Venipuncture / Unknown 06/06/2024 9:22 AM EST 06/06/2024 9:22 AM EST Yaniv Mills MD LAB BLOOD ORDERABLES Radha l Result Performing Organization Address [facility] Co de Phone Number [facility] [address] [place] [address], [place] [phone] * ECG 12 lead (06/06/2024 8:22 AM EST) 06/06/2024 8:22 AM EST 06/06/2024 11:51 AM EST Narrative [facility] - 06/06/2024 11:51 AM EST Ventricular Rate: 71 BPM Atrial Rate: 71 BPM P-R Interval: 164 ms QRS Duration: 78 ms Q-T Interval: 358 ms QTC Calculation(Bazett): 389 ms P Altura: 32 degrees R Altura: 20 degrees T Altura: 50 degrees Diagnosis: Normal sinus rhythm Normal ECG When compared with ECG of 27-FEB-2024 00:58, No significant change was found Confirmed by Artis Baldwin ([id number]) on 06/06/2024 8:51:36 AM Also confirmed by Artis Baldwin ([id number]), senior technical editor Maris Hunter ([id number]) on 06/06/2024 11:51:51 AM Procedure Note Artis Baldwin MD - 06/06/2024 Ventricular Rate: 71 BPM Atrial Rate: 71 BPM P-R Interval: 164 ms QRS Duration: 78 ms Q-T Interval: 358 ms QTC Calculation(Bazett): 389 ms P Altura: 32 degrees R Altura: 20 degrees T Altura: 50 degrees Diagnosis: Normal sinus rhythm Normal ECG When compared with ECG of 27-FEB-2024 00:58, No significant change was found Confirmed by Artis Baldwin ([id number]) on 06/06/2024 8:51:36 AM Also confirmed by Artis [id number]), senior technical editor Maris Hunter ([id number]) on 06/06/2024 11:51:51 AM Yaniv Mills MD ECG ORDERABLES Final Res ult Performing Organization Address City/[facility]/ZIP Co de Phone Number [facility] ([place] [address], * COLONOSCOPY (06/01/2024 2:05 PM EST) 06/01/2024 2:05 PM EST Narrative [facility] - 06/01/2024 2:56 PM EST Patient Name: Ignacio Robins Date of : 1950 Procedure Date: 06/01/2024 2:05 PM Procedure: ? Colonoscopy Endoscopist: ? Dexter Mulligan MD (Fellow), Abiel ? MD Wayne (Doctor) Referring MD: ?Yaniv Mills MD (Referring MD) Indications: ? Screening for colorectal malignant ? neoplasm, Incidental - Diarrhea Attending Participation: I personally performed the entire procedure. Procedure: ? Pre-Anesthesia Assessment: ? - Prior to the procedure, a History and ? Physical was performed, and patient ? medications and allergies were reviewed. ? The patient's tolerance of previous ? anesthesia was also reviewed. The risks and ? benefits of the procedure and the sedation ? options and risks were discussed with the ? patient. All questions were answered, and ? informed consent was obtained. Prior ? Anticoagulants: The patient has taken no ? anticoagulant or antiplatelet agents. ASA ? Grade Assessment: II - A patient with mild ? systemic disease. After reviewing the risks ? and benefits, the patient was deemed in ? satisfactory condition to undergo the ? procedure. ? -Endoscopic procedures are exempt from a ? surgical site marking.Preparation: EKG, ? pulse, pulse oximetry, and blood pressure ? were monitored throughout the procedure. ? Capnography was monitored throughout ? procedure. The patient was kept NPO for ? four hours prior to the procedure. An ? intravenous line was inserted. The ? [id number] scope was introduced ? through the anus and advanced to the cecum, ? identified by appendiceal orifice and ? ileocecal valve. The colonoscopy was ? performed without difficulty. The patient ? tolerated the procedure well. The quality ? of the bowel preparation was good. The ? quality of the bowel preparation was ? evaluated using the BBPS ([place] Bowel ? Preparation Scale) with scores of: Right ? Colon = 3, Transverse Colon = 3 and Left ? Colon = 3 (entire mucosa seen well with no ? residual staining, small fragments of stool ? or opaque liquid). The total BBPS score ? equals 9. Medicines: ? Monitored Anesthesia Care Findings: ? A single medium-sized localized angioectasia without bleeding ? was found in the cecum. ? A less than 5 mm polyp was found in the transverse colon. The ? polyp was sessile. The polyp was removed with a cold biopsy ? forceps. Resection and retrieval were complete. Estimated blood ? loss: none. ? A 5 mm polyp was found in the sigmoid colon. The polyp was ? sessile. The polyp was removed with a cold snare. Resection and ? retrieval were complete. Estimated blood loss: none. ? A few small-mouthed diverticula were found in the left colon. ? Internal hemorrhoids were found during retroflexion. The ? hemorrhoids were Grade I (internal hemorrhoids that do not ? prolapse). ? Biopsies for histology were taken with a cold forceps from the ? entire colon for evaluation of microscopic colitis. Estimated Blood Loss: ?Estimated blood loss: none. Unplanned Events: ?No immediate complications. Summary: ? - A single non-bleeding colonic ? angioectasia. ? - One less than 5 mm polyp in the ? transverse colon, removed with a cold ? biopsy forceps. Resected and retrieved. ? - One 5 mm polyp in the sigmoid colon, ? removed with a cold snare. Resected and ? retrieved. ? - Diverticulosis in the left colon. ? - Internal hemorrhoids. ? - Biopsies were taken with a cold forceps ? from the entire colon for evaluation of ? microscopic colitis. Recommendation: ?- Patient has a contact number available ? for emergencies. The signs and symptoms of ? potential delayed complications were ? discussed with the patient. Return to ? normal activities tomorrow. Written ? discharge instructions were provided to the ? patient. ? - Resume previous diet. ? - Repeat colonoscopy in 5-10 years for ? surveillance based on pathology results. ? - Await pathology results. ? - Telephone GI office for pathology results ? in 2 weeks. ? - No NSAIDs for one week please Procedure Code(s): ? --- Professional --- ? 24367, Colonoscopy, flexible; with removal ? of tumor(s), polyp(s), or other lesion(s) ? by snare technique ? 48740, 59, Colonoscopy, flexible; with ? biopsy, single or multiple Diagnosis Code(s): ? --- Professional --- ? Z12.11, Encounter for screening for ? malignant neoplasm of colon ? K55.20, Angiodysplasia of colon without ? hemorrhage ? D12.3, Benign neoplasm of transverse colon ? (hepatic flexure or splenic flexure) ? D12.5, Benign neoplasm of sigmoid colon ? K64.0, First degree hemorrhoids ? K57.30, Diverticulosis of large intestine ? without perforation or abscess without ? bleeding CPT copyright 2022 [employer]. All rights reserved. The codes documented in this report are preliminary and upon staffing recruiter review may be revised to meet current compliance requirements. MD Abiel Varghese MD 06/01/2024 2:56:53 PM Electronically Authenticated and Edited by: MD Dexter Varghese MD Number of Addenda: 0 ? [facility] [address] [place] [address] Tel: [phone] us Abiel Black MD GI PROCEDURE Final Result Performing Organization Address [facility] Hospital/State/[facility] Co de Phone Number [facility] [address] [place] [address]. [place] [address], * Surgical Specimen Exam (06/01/2024 1:47 PM EST) Case Report Surgical Pathology ?Case: [id number] ? Authorizing Provider: ??Abiel Black MD ? Collected: ? 06/01/2024 1347 ? Ordering Location: ? [employer] ? Received: ?06/01/2024 1556 ? Pathologist: ? Denis Cunningham MD ? Specimens: ?? A) - Small Intestine, Duodenum, second portion duodenum bx - eval for celiac's ? B) - Gastric, Irregular mucosa - jerrod. pyloric region bx ? C) - Esophagus, Distal, Distal esophagus bx - eval for EOE ? D) - Esophagus, Mid and proximal esophagus bx - eval for EOE ? E) - Large Intestine, Left/Descendin g Colon, Random colon bx - Diarrhea ? F) - Large Intestine, Transverse Colon, transverse colon polyp ? G) - Large Intestine, Sigmoid Colon, sigmoid colon polyp ? 06/08/2024 4:35 PM EST [facility] Final Diagnosis A. Duodenum at second portion, biopsy: - Small bowel mucosa without significant diagnostic abnormalities. - No histologic features of celiac disease. B. Gastric peripyloric region, biopsy: - Gastric pyloric mucosa with epithelial hyperplasia and intestinal metaplasia. - No evidence of dysplasia. C. Distal esophagus, biopsy: - Esophageal squamous mucosa with mild reflux esophagitis. - No significant increase in eosinophils. - Eosinophil count less than 1/hpf. - No evidence of Givens's esophagus. D. Mid and proximal esophagus, biopsy: - Esophageal squamous mucosa without significant diagnostic abnormalities. - No increase in eosinophils. E. Left/descendin g colon, random colonic biopsy: - Colonic mucosa without significant diagnostic abnormalities. - No acute colitis or chronicity. F. Transverse colon polyp, biopsy: - Sessile serrated adenoma. G. Sigmoid colon polyp, biopsy: - Sessile serrated adenoma. 06/08/2024 4:35 PM EST [facility] at 1635 EST Gross Description Prosector: DHA. The specimen containers are labeled with the patient's name and date of . A. Received in formalin labeled second portion duodenum BX are 3 light love fragments of tissue ranging from 0.3 to 0.4 cm in greatest dimension. The specimen is submitted entirely in cassette A1. B. Received in formalin labeled peripyloric is a single love fragment of tissue measuring 0.6 cm in greatest dimension. The specimen is submitted entirely in cassette B1. C. Received in formalin labeled distal esophagus BX are multiple light love fragments of tissue ranging from 0.3 to 0.7 cm in greatest dimension. The specimen is submitted entirely in cassette C1. D. Received in formalin labeled mid and proximal esophagus BX are multiple light love fragments of tissue ranging from less than 0.1 to 0.4 cm in greatest dimension. The specimen is submitted entirely in cassette D1. E. Received in formalin labeled random colon BX are multiple light love fragments of tissue ranging from less than 0.1 to 0.4 cm in greatest dimension. The specimen is submitted entirely in cassette E1. F. Received in formalin labeled transverse colon polyp are 2 light love fragments of tissue measuring 0.3 and 0.4 cm in greatest dimension. The specimen is submitted entirely in cassette F1. G. Received in formalin labeled sigmoid colon polyp are 2 love-red fragments of tissue measuring 0.4 and 0.5 cm in greatest dimension. The specimen is submitted entirely in cassette G1. 06/08/2024 4:35 PM EST [facility] Embedded Images 06/08/2024 4:35 PM EST [facility] Tissue Duodenal structure / Unknown 06/01/2024 1:47 PM EST 06/01/2024 3:56 PM EST Tissue specimen (specimen) Stomach structure / Unknown 06/01/2024 1:51 PM EST 06/01/2024 3:56 PM EST Tissue specimen (specimen) Structure of lower third of esophagus / Unknown 06/01/2024 1:57 PM EST 06/01/2024 3:56 PM EST Tissue specimen (specimen) Esophageal structure / Unknown 06/01/2024 2:00 PM EST 06/01/2024 3:56 PM EST Tissue specimen (specimen) Descending colon structure / Unknown 06/01/2024 2:27 PM EST 06/01/2024 3:56 PM EST Tissue specimen from polyp obtained by excision (specimen) Transverse colon structure / Unknown 06/01/2024 2:34 PM EST 06/01/2024 3:56 PM EST Tissue specimen from polyp obtained by excision (specimen) Sigmoid colon structure / Unknown 06/01/2024 2:48 PM EST 06/01/2024 3:56 PM EST Abiel Black MD LAB PATHOLOGY (NO SOURCE) Asim maza Result Performing Organization Address City/State/[facility] de Phone Number [facility] [address] [place] [address], * UPPER GI ENDOSCOPY (06/01/2024 1:25 PM EST) 06/01/2024 1:25 PM EST Narrative [facility] - 06/01/2024 2:51 PM EST Patient Name: Ignacio Robins Date of : 1950 Procedure Date: 06/01/2024 1:25 PM Procedure: ? Upper GI endoscopy Endoscopist: ? Dexter Mulligan MD (Fellow), Abiel ? MD Wayne (Doctor) Referring : ?Yaniv Mills MD (Referring MD) Indications: ? Dysphagia, Diarrhea Attending Participation: I personally performed the entire procedure. Procedure: ? Pre-Anesthesia Assessment: ? - Prior to the procedure, a History and ? Physical was performed, and patient ? medications and allergies were reviewed. ? The patient's tolerance of previous ? anesthesia was also reviewed. The risks and ? benefits of the procedure and the sedation ? options and risks were discussed with the ? patient. All questions were answered, and ? informed consent was obtained. Prior ? Anticoagulants: The patient has taken no ? anticoagulant or antiplatelet agents. ASA ? Grade Assessment: II - A patient with mild ? systemic disease. After reviewing the risks ? and benefits, the patient was deemed in ? satisfactory condition to undergo the ? procedure. ? -Endoscopic procedures are exempt from a ? surgical site marking.Preparation: EKG, ? pulse, pulse oximetry, and blood pressure ? were monitored throughout the procedure. ? Capnography was monitored throughout ? procedure. The patient was kept NPO for ? four hours prior to the procedure. An ? intravenous line was inserted. The GIF-1100 ? [id number] scope was introduced through the ? mouth, and advanced to the second part of ? duodenum. The upper GI endoscopy was ? accomplished without difficulty. The ? patient tolerated the procedure well. Medicines: ? Monitored Anesthesia Care Findings: ? One superficial esophageal ulcer with no stigmata of recent ? bleeding was found at the gastroesophageal junction. ? 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 ? The exam of the esophagus was otherwise normal. ? Biopsies were obtained from the proximal and distal esophagus ? with cold forceps for histology of suspected eosinophilic ? esophagitis. ? Localized mild mucosal variance characterized by erythema was ? found in the prepyloric region of the stomach. Biopsies were ? taken with a cold forceps for histology. Estimated blood loss: ? none. ? The exam of the stomach was otherwise normal. ? The cardia and gastric fundus were normal on retroflexion. ? The duodenal bulb and second portion of the duodenum were ? normal. Biopsies for histology were taken with a cold forceps ? for evaluation of celiac disease. Estimated blood loss: none. Estimated Blood Loss: ?Estimated blood loss: none. Unplanned Events: ?No immediate complications. Summary: ? - Esophageal ulcer with no stigmata of ? recent bleeding. ? 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 ? - Gastric mucosal variant. Biopsied. ? - Normal duodenal bulb and second portion ? of the duodenum. Biopsied. ? - Biopsies were taken with a cold forceps ? for evaluation of eosinophilic esophagitis. Recommendation: ?- Patient has a contact number available ? for emergencies. The signs and symptoms of ? potential delayed complications were ? discussed with the patient. Return to ? normal activities tomorrow. Written ? discharge instructions were provided to the ? patient. ? - Resume previous diet. ? - Await pathology results. ? - Telephone GI office for pathology results ? in 2 weeks. ? - Follow an antireflux regimen. ? - Use a proton pump inhibitor PO daily. ? - Repeat upper endoscopy in 4 months to ? evaluate the response to therapy. Procedure Code(s): ? --- Professional --- ? 11696, Esophagogastroduodenoscopy, ? flexible, transoral; with biopsy, single or ? multiple Diagnosis Code(s): ? --- Professional --- ? K22.10, Ulcer of esophagus without bleeding ? 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 K31.89, Other diseases of stomach and ? duodenum ? R13.10, Dysphagia, unspecified ? R19.7, Diarrhea, unspecified CPT copyright 2022 [employer]. All rights reserved. The codes documented in this report are preliminary and upon staffing recruiter review may be revised to meet current compliance requirements. MD Abiel Varghese MD 06/01/2024 2:51:31 PM Electronically Authenticated and Edited by: MD Dexter Varghese MD Number of Addenda: 0 ? [address] [address] Tel: [phone] Abiel Black MD GI PROCEDURE Final Result [facility] [address] [place] [address], [place] [phone] * 24 HR URINE 5 HIAA QUANT (Q) (05/29/2024 9:06 AM EST) 5 HIAA 2.0 < OR = 10.0 mg/g creat [facility], Comment: This test was developed and its analytical performance characteristics have been determined by [facility]. It has not been cleared or approved by FDA. This assay has been validated pursuant to the CLIA regulations and is used for clinical purposes. [facility] CREATININE, RANDOM URINE 74 20 - 320 mg/dL [facility], Urine 05/29/2024 9:06 AM EST 05/29/2024 9:07 AM EST Yaniv EMANUEL [facility] LAB ORDERABLES Final Result Performing Organization Address City/[facility]/ZIP Co de Phone Number [facility], [address] [place] [address] * Allergen, food, corn (05/23/2024 11:44 AM EST) Allergen, Food, Silver Star IgE see scanned results 05/30/2024 3:00 PM EST [facility] Blood Venous blood specimen / Unknown Venipuncture / Unknown 05/23/2024 11:44 AM EST 05/23/2024 11:52 AM EST Yaniv Mills MD LAB BLOOD ORDERABLES NO S TAT Final Result [facility] [address] [place] [address] * Allergen, food, seafood profile (05/23/2024 11:44 AM EST) [facility] Allergen, Food, Codfish IgE <0.10 <=0.34 kU/L 05/26/2024 10:56 PM EST [facility] Allergen, Food, Crab IgE <0.10 <=0.34 kU/L 05/26/2024 10:56 PM EST [facility] Allergen, Food, Lobster IgE <0.10 <=0.34 kU/L 05/26/2024 10:56 PM EST [facility] Allergen, Food, Shrimp IgE <0.10 <=0.34 kU/L 05/26/2024 10:56 PM [facility] Allergen, Food, Tuna IgE <0.10 <=0.34 kU/L 05/26/2024 10:56 PM [facility] Allergen, Interp, Immunocap Score IgE See Note 05/26/2024 10:56 PM [facility] Comment: REFERENCE INTERVAL: Allergen, Interpretation Less than 0.10 kU/L......Class 0.....No significant level detected 0.10-0.34 kU/L...........Class 0/1...Clinical relevance undetermined 0.35-0.70 kU/L...........Class 1.....Low 0.71-3.50 kU/L...........Class 2.....Moderate 3.51-17.50 kU/L..........Class 3.....High 17.51-50.00 kU/L.........Class 4.....Very High 50.01-100.00 kU/L........Class 5.....Very High Greater than 100.00kU/L..Class 6.....Very High Allergen results of 0.10-0.34 kU/L are intended for specialist use as the clinical relevance is undetermined. Even though increasing ranges are reflective of increasing concentrations of allergen-specific IgE, these concentrations may not correlate with the degree of clinical response or skin testing results when challenged with a specific allergen. The correlation of allergy laboratory results with clinical history and in vivo reactivity to specific allergens is essential. A negative test may not rule out clinical allergy or even anaphylaxis. Performed By: [facility] [address] [place] [address] Supervisor Denture Department: John Priest MD, PhD CLIA Number: [id number] Blood Venous blood specimen / Unknown Venipuncture / Unknown 05/23/2024 11:44 AM EST 05/23/2024 11:52 AM EST us Yaniv Mills MD LAB BLOOD ORDERABLES NO S TAT Final Result [facility] [address] [place] [address] * Allergens, food, comprehensive profile 1 (05/23/2024 11:44 AM EST) Allergy, Food, Barley, IgE <0.10 <=0.34 kU/L 05/26/2024 10:56 PM EST [facility] Allergen, Food, Beef IgE <0.10 <=0.34 kU/L 05/26/2024 10:56 PM EST [facility] Allergen, Food, Sweet pepper, IgE <0.10 <=0.34 kU/L 05/26/2024 10:56 PM EST [facility] Allergen, Food, Cabbage, IgE <0.10 <=0.34 kU/L 05/26/2024 10:56 PM EST [facility] Allergen, Food, Carrot, IgE <0.10 <=0.34 kU/L 05/26/2024 10:56 PM EST [facility] Allergen, Food, Chicken IgE <0.10 <=0.34 kU/L 05/26/2024 10:56 PM EST [facility] Allergen, Food, Codfish IgE <0.10 <=0.34 kU/L 05/26/2024 10:56 PM EST [facility] Allergen, Food, Silver Star IgE <0.10 <=0.34 kU/L 05/26/2024 10:56 PM EST [facility] Allergen, Food, Crab IgE <0.10 <=0.34 kU/L 05/26/2024 10:56 PM EST [facility] Allergen, Food, Egg White IgE <0.10 <=0.34 kU/L 05/26/2024 10:56 PM EST [facility] Allergen, Food, Grape, IgE <0.10 <=0.34 kU/L 05/26/2024 10:56 PM EST [facility] Allergen, Food, Lettuce, IgE <0.10 <=0.34 kU/L 05/26/2024 10:56 PM EST [facility] Allergen, Food, Milk (Cow) IgE <0.10 <=0.34 kU/L 05/26/2024 10:56 PM EST [facility] Allergen, Food, Altus carmona, IgE <0.10 <=0.34 kU/L 05/26/2024 10:56 PM EST [facility] Allergen, Food, Oat, IgE <0.10 <=0.34 kU/L 05/26/2024 10:56 PM EST [facility] Allergen, Food, [place], IgE <0.10 <=0.34 kU/L 05/26/2024 10:56 PM EST [facility] Allergen, Food, Peanut IgE <0.10 <=0.34 kU/L 05/26/2024 10:56 PM EST [facility] Allergen, Food, Potato, IgE <0.10 <=0.34 kU/L 05/26/2024 10:56 PM EST [facility] Allergen, Food, Pork IgE <0.10 <=0.34 kU/L 05/26/2024 10:56 PM EST [facility] Allergen, Food, Rice, IgE <0.10 <=0.34 kU/L 05/26/2024 10:56 PM EST [facility] Allergen, Food, [place], IgE <0.10 <=0.34 kU/L 05/26/2024 10:56 PM EST [facility] Allergen, Food, Shrimp IgE <0.10 <=0.34 kU/L 05/26/2024 10:56 PM EST [facility] Allergen, Food, Soybean IgE <0.10 <=0.34 kU/L 05/26/2024 10:56 PM EST [facility] Allergen, Food, Tomato, IgE <0.10 <=0.34 kU/L 05/26/2024 10:56 PM EST [facility] Allergen, Food, Tuna IgE <0.10 <=0.34 kU/L 05/26/2024 10:56 PM EST [facility] Allergen, Food, Wheat IgE <0.10 <=0.34 kU/L 05/26/2024 10:56 PM EST [facility] Allergen, Interp, Immunocap Score IgE See Note 05/26/2024 10:56 PM EST [facility] Comment: REFERENCE INTERVAL: Allergen, Interpretation Less than 0.10 kU/L......Class 0.....No significant level detected 0.10-0.34 kU/L...........Class 0/1...Clinical relevance undetermined 0.35-0.70 kU/L...........Class 1.....Low 0.71-3.50 kU/L...........Class 2.....Moderate 3.51-17.50 kU/L..........Class 3.....High 17.51-50.00 kU/L.........Class 4.....Very High 50.01-100.00 kU/L........Class 5.....Very High Greater than 100.00kU/L..Class 6.....Very High Allergen results of 0.10-0.34 kU/L are intended for specialist use as the clinical relevance is undetermined. Even though increasing ranges are reflective of increasing concentrations of allergen-specific IgE, these concentrations may not correlate with the degree of clinical response or skin testing results when challenged with a specific allergen. The correlation of allergy laboratory results with clinical history and in vivo reactivity to specific allergens is essential. A negative test may not rule out clinical allergy or even anaphylaxis. Performed By: [facility] [employer] [address] [place] [address] Supervisor Denture Department: John Priest MD, PhD CLIA Number: [id number] Blood Venous blood specimen / Unknown Venipuncture / Unknown 05/23/2024 11:44 AM EST 05/23/2024 11:52 AM EST us Yaniv Mills MD LAB BLOOD ORDERABLES NO S TAT Final Result [facility] [address] [place] [address] * Prothrombin time (PT) with INR (05/23/2024 11:44 AM EST) PT 11.6 10.4 - 13.0 seconds 05/23/2024 3:48 PM EST [facility] INR 1.0 0.9 - 1.1 ratio 05/23/2024 3:48 PM EST [facility] Blood Venous blood specimen / Unknown Venipuncture / Unknown 05/23/2024 11:44 AM EST 05/23/2024 11:52 AM EST Narrative [facility] - 05/23/2024 3:48 PM EST Warfarin is monitored by the international normalized ratio (INR). ??The INR is calculated from the PT and is intended to allow valid comparisons of results regardless of the type of PT reagent used. ??The usual therapeutic goal is an INR of 2.0-3.0, however, the therapeutic range will vary depending on the indication for the use of oral anticoagulation. ??For further recommendations for the optimal therapeutic range for various indications refer to Chest 141:Supplement:2012 - ANTITHROMBOTIC THERAPY AND PREVENTION OF THROMBOSIS, 9TH ED: ACCP GUIDELINES. Heidi Avery MD LAB BLOOD ORDERABLES Final Resul t [facility] [address] [place] [address], * Gastrin level (05/23/2024 11:44 AM EST) Gastrin 17 0 - 100 pg/mL 05/26/2024 10:10 PM EST [facility] Comment: Performed By: [facility] [facility] [address] [place] [address] Supervisor Denture Department: John Priest MD, PhD CLIA Number: [id number] Blood Venous blood specimen / Unknown Venipuncture / Unknown 05/23/2024 11:44 AM EST 05/23/2024 11:52 AM EST us Yaniv Mills MD LAB BLOOD ORDERABLES NO S TAT Final Result [place] [address] * (ABNORMAL) Basic metabolic panel (05/23/2024 11:44 AM EST) Sodium 143 137 - 144 mmol/L 05/23/2024 3:21 PM [facility] Potassium 5.2(H) 3.6 - 5.1 mmol/L 05/23/2024 3:21 PM [facility] Chloride 104 100 - 111 mmol/L 05/23/2024 3:21 PM [facility] CO2 29 23 - 32 mmol/L 05/23/2024 3:21 PM [facility] Anion gap 10 3 - 11 mmol/L 05/23/2024 3:21 PM [facility] BUN 13 8 - 24 mg/dL 05/23/2024 3:21 PM [facility] Creatinine 1.10 0.60 - 1.20 mg/dL 05/23/2024 3:21 PM [facility] Glucose 91 70 - 200 mg/dL 05/23/2024 3:21 PM [facility] Comment: Normal fasting glucose ?75-99 mg/dL Impaired fasting glucose ?100 - 125 mg/dL Fasting glucose ? >125 mg/dL - provisional diagnosis of diabetes mellitus Random glucose ?>= 200 mg/dl is considered diagnostic for diabetes ADA Guidelines: Classification and Diagnosis of Diabetes: Standards of Medical Care in Diabetes - 2020, Diabetes Care 2020; S15-S33. Calcium 10.2 8.4 - 10.2 mg/dL 05/23/2024 3:21 PM EST [facility] eGFR 71 >60 mL/min/1. 73m*2 05/23/2024 3:21 PM EST [facility] Comment: Calculation based on the Chronic Kidney Disease Epidemiology Collaboration (CKD-EPI) equation refit without adjustment for race. ? Chronic Kidney Disease less than 60 ml/min/1.73 m2 ? Kidney Failure less than 15 ml/min/1.73 m2 ? Age (Years) ? Average GFR ? 20 - 29 ? 116 ml/min/1.73 m2 ? 30 - 39 ? 107 ml/min/1.73 m2 ? 40 - 49 ?99 ml/min/1.73 m2 ? 50 - 59 ?93 ml/min/1.73 m2 ? 60 - 69 ?85 ml/min/1.73 m2 ? 70 + ? 75 ml/min/1.73 m2 ? Pursuant to [place] Public Act 06-120(1)(b)(1). ?? The 2021 CKD-EPI calculation used to estimate eGFR has only been validated for patients 18 years or older. Blood Venous blood specimen / Unknown Venipuncture / Unknown 05/23/2024 11:44 AM EST 05/23/2024 11:52 AM EST Heidi Avery MD LAB BLOOD ORDERABLES Final Resul t [facility] [address] [place] [address], * HIV combo antigen/antibody (09/17/2023 10:18 AM EDT) HIV Combo AB/AG Negative Negative 09/17/2023 11:53 AM EDT [facility] Blood Venous blood specimen / Unknown Venipuncture / Unknown 09/17/2023 10:18 AM EDT 09/17/2023 10:21 AM EDT Narrative [facility] - 09/17/2023 11:53 AM EDT This test is a 4th generation HIV Antigen-Antibody Combination assay, using a chemiluminescent microparticle immunoassay, for the simultaneous qualitative detection of human immuno- deficiency virus (HIV) p24 antigen and antibodies to HIV type 1 (HIV-1) and/or HIV type 2 (HIV-2) in human serum or plasma. The [facility] HIV Ag/Ab Combo assay is intended to be used as an aid in the diagnosis of HIV-1 and/or HIV-2 infection, including acute or primary HIV-1 infection. Initially-positive tests are repeated in duplicate. Repeat-positive tests will be confirmed for HIV by a HIV-1/HIV-2 rapid supplemental/ differentiation antibody assay. This testing algorithm is in line with the current CDC recommendations. us Yaniv Mills MD LAB BLOOD ORDERABLES NO S TAT Final Result [facility] [address] [place] [address], * Hepatitis C antibody (09/17/2023 10:18 AM EDT) Hepatitis C Antibody Negative Negative 09/17/2023 11:58 AM EDT [facility] Comment:Anti-HCV (HCVAb) Not Detected. Patient is presumed not to be infected with HCV. The possibility of exposure to HCV cannot be excluded. Blood Venous blood specimen / Unknown Venipuncture / Unknown 09/17/2023 10:18 AM EDT 09/17/2023 10:21 AM EDT us Yaniv Mills MD LAB BLOOD ORDERABLES NO S TAT Final Result [facility] [address] [place] [address], from Last 3 Months or Most Recently Relevant to Health Maintenance Insurance [employer] [facility] [employer] Advance Directives For more information, please contact: [phone] Documents on File Type Date Recorded Patient Lcpc Expl anation Advance Directives 06/02/2024 11:02 AM * Full Code (Latest Code Status on File) Date Activated Date Inactivated Comments 05/24/2019 1:13 AM 05/24/2019 2:46 PM Care Teams Choir Singer Relationship Specialty Start Date End Date Yaniv Mills MD [address] [place] [address] PCP - General Internal Medicine 06/10/23 Yaniv Mills MD [address] [address] PCP - Insurance Payer PCP 07/17/23 Heidi Avery MD [address] [place], [place] [address] [address] General Surgery 06/21/24
--- OUTSIDE RECORDS SUMMARY | 2024-07-20 15:43 | XMS_ITS | Patient Health Record ---
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
--- OUTSIDE RECORDS SUMMARY | 2024-07-20 15:43 | XMS_ITS | Encounter Summary ---
Author Organization [facility] Address [address] [place] [address] Care Team Providers Care Flat Folding Machine Operator Name Role Phone Anup Prince MD Primary Care Provider [phone] Encounter Details Date Type Department Care Team (Late st Contact Info) Description 06/30/2013 Scanned Document [facility] General [facility] [place] [facility] [place]. [id number] [place], [place] [id number] Stuart Richard MD [address] [place] [address] Social History Tobacco Use Types Packs/Day Years Used Date Smoking Tobacco: Former Alcohol Use Standard Drinks/Week Comments Yes 0 (1 standard drink = 0.6 oz pur e alcohol) Sex and Gender Information Value Date Recorded Sex Assigned at Not on file Legal Sex Male 9:15 AM EST Gender Identity Not on file Sexual Orientation Not on file documented as of this encounter Plan of Treatment Not on file documented as of this encounter Visit Diagnoses Not on filedocumented in this encounter Care Teams Flat Folding Machine Operator Relationship Specialty Start Date End Date Anup Prince MD PCP - General Internal Medicine 06/18/13 documented as of this encounter
--- OUTSIDE RECORDS SUMMARY | 2024-07-20 15:43 | XMS_ITS | Clinical Summary ---
Author Organization [facility] Address [address] [place] [address] Care Team Providers Care Business Planning Director Name Role Phone Unavailable Primary Care Provider Unavailabl e Allergies No known active allergies Medications Medication Sig Dispensed Refills Start Date End Date Status naproxen (NAPROSYN) 500 MG tabletIndications:Low back pain, unspecified TAKE 1 TABLET BY MOUTH EVERY 12 HOURS NEEDED 60 tablet 09/07/2022 Active Social History Tobacco Use Types Packs/Day Years Used Date Smoking Tobacco: Never Assessed Sex and Gender Information Value Date Recorded Sex Assigned at Not on file Gender Identity Male 10/08/2022 11:36 AM EDT Sexual Orientation Not on file Plan of Treatment Health Maintenance Due Date Last Done Comments Hepatitis C Virus Screening 1950 DTaP/Tdap/Td Vaccines (1 - Tdap) 1970 Colonoscopy 1996 Pneumococcal Vaccines 50+ (1 of 1 - PCV) 2001 Zoster (Shingles) Vaccine (1 of 2) 2001 Influenza Vaccine 11/18/2023 12/17/2021 COVID-19 Vaccine ( season) 2023 08/13/2022, 02/23/2022, 07/22/2020, Additional history exists RSV Vaccine 60 years and older and Patients (1 - 1-dose 75+ series) 2026 Hepatitis B Vaccines Aged Out No long er eligible based on patient's age to complete this topic
--- OUTSIDE RECORDS SUMMARY | 2024-07-20 15:43 | XMS_ITS ---
Author Name [facility] Organization Unknown Results Test Name/Text Value Interpretation Date Range Source FASTING? Yes Normal [id number] [facility] CHOLESTEROL, HDL 64mg/dL Normal [id number] [facility] LDL CHOLESTEROL FRIEDWALD CALC 107mg/dL Normal 971793671044 [facility] TRIGLYCERIDE 83mg/dL Normal [id number] [facility] CHOLESTEROL, TOTAL 188mg/dL Normal [id number] [facility] MEASLES ANTIBODY IGG 119AU/mL Normal [id number] [facility] ([facility]) SPECIMEN TYPE/CONTAINER PLASMA/LAVENDER Normal [id number] [facility] VASOACTIVE INTESTINAL POLYPEPTIDE ([facility]) 25pg/mL Normal [id number] - 36 [facility] [place] TITER 1 1:80 Normal [id number] - [facility] [place] PATTERN Homogeneous Normal [id number] [facility] ANTI-NUCLEAR ANTIBODY ([place]) Positive Abnormal [id number] - [facility] CREATINE KINASE 132U/L Normal [id number] 22 - 269 [facility] MAGNESIUM 2mg/dL Normal [id number] 1.8 - 3 [facility] ANTI-NUCLEAR ANTIBODY ([place]) Positive Abnormal [id number] - [facility] DOUBLE-STRANDED DNA (DSDNA) AB IGG IFA 1:20 Above high normal [id number] - [facility] CREATININE 1.1mg/dL Normal [id number] 0.6 - 1.2 [facility] SODIUM 142mmol/L Normal [id number] 137 - 144 [facility] CHLORIDE 105mmol/L Normal [id number] 100 - 111 [facility] CALCIUM, TOTAL 10.1mg/dL Normal [id number] 8.4 - 10.2 [facility] AST (SGOT) 31U/L Normal [id number] 17 - 35 [facility] UREA NITROGEN 9mg/dL Normal [id number] 8 - 24 [facility] ALBUMIN, AUTOMATED 4.9g/dL Normal [id number] 3.8 - 5. 3 [facility] GLUCOSE 86mg/dL Normal [id number] 70 - 200 [facility] BICARBONATE 29mmol/L Normal [id number] 23 - 32 [facility] POTASSIUM 4.2mmol/L Normal 3.6 - 5.1 [facility] GLOMERULAR FILTRATION RATE ML/MIN/1.73 SQ M.PREDICTED 71mL/min/1.73m*2 Normal [id number] 60 - [facility] ALT (SGPT) 27U/L Normal 8 - 39 [facility] PROTEIN TOTAL 7.4g/dL Normal [id number] 6.2 - 8.1 [facility] BILIRUBIN, TOTAL 1.1mg/dL Normal [id number] 0.1 - 1.2 [facility] ALKALINE PHOSPHATASE 89U/L Normal 39 - 1 13 [facility] ANION GAP 8mmol/L Normal [id number] 3 - 11 [facility] CYCLIC CITRULLINATED PEPTIDE ANTIBODY 7Units Normal [facility] THYROID STIM HORMONE 3.02uIU/mL Normal [id number] 0. 35 - 4.94 [facility] SEDIMENTATION RATE, ERYTHROCYTE 3mm Normal [id number] 0 - 15 [facility] RHEUMATOID FACTOR QUALITATIVE Negative Normal [id number] - [facility] RBC DISTRIBUTION WIDTH 12.7% Normal 11.6 - 14.8 [facility] AUTO NRBC % 0% Normal [id number] 0 - [address] [facility] [address] 3.610*3/uL Normal [id number] 1.4 - 6.[address] [facility] [address] 0.610*3/uL Normal [id number] 0.2 - 0.8 [facility] MCHC 32.8g/dL Normal [id number] 32 - 36 [facility] MCH 31.5pg Normal [id number] 26 - 34 [facility] IMMATURE GRANULOCYTE % 0.1% Normal 0 - 0.6 [facility] EOSINOPHIL % 5.4% Normal [id number] 0 - 6 [facility] ABS[address]UTE BAS[address]HIL CT 0.110*3/uL Normal [id number] 0 - 0 .2 [facility] MCV 95.8fL Normal 80 - 100 [facility] PLATELET COUNT 21382*3/uL Normal 150 - 440 [facility] BASOPHILS % 0.7% Normal 0 - [address] [facility] [address] 2.110*3/uL Normal 0.7 - 4.[address] [facility] [address] 0.410*3/uL Above high normal [id number] 0 - 0.3 [facility] HEMATOCRIT 46% Normal 40 - 52 [facility] WHITE CELL COUNT 6.710*3/uL Normal 3.8 - 10.6 [facility] RED CELL COUNT 4.810*6/???L Normal 4.4 - 5.9 [facility] MONOCYTE % 9% Normal 4 - 12 [facility] NEUTROPHIL % 53.6% Normal 40 - 70 [facility] HEMOGLOBIN 15.1g/dL Normal 13 - 18 [facility] LYMPHOCYTE % 31.2% Normal 20 - 50 [facility] ([facility]) SPECIMEN TYPE/CONTAINER PLASMA/LAVENDER Normal [facility] VASOACTIVE INTESTINAL POLYPEPTIDE ([facility]) 37pg/mL Above high normal - 36 [facility] GASTRIN 17pg/mL Normal 0 - 100 [facility] ALLERGEN, FOOD, CORN IGE see scanned results Normal [facility] INR 1ratio Normal 0.9 - 1.1 [facility] PROTHROMBIN TIME (PT) 11.6seconds Normal 10. 4 - 13 [facility] ALLERGEN, FOOD, TUNA IGE <0.10 Normal - [facility] ALLERGEN, INTERP, IMMUNOCAP SCORE IGE See Note Normal [facility] ALLERGEN, FOOD, CODFISH IGE <0.10 Normal - [facility] ALLERGEN, FOOD, CRAB IGE <0.10 Normal - [facility] ALLERGEN, FOOD, LOBSTER IGE <0.10 Normal - [facility] ALLERGEN, FOOD, SHRIMP IGE <0.10 Normal [id number] - [facility] ALLERGEN, FOOD, TUNA IGE <0.10 Normal [id number] - [facility] ALLERGEN, FOOD, PEPPER C. ANNUUM IGE <0.10 Normal [id number] - [facility] ALLERGEN, FOOD, ORANGE IGE <0.10 Normal [id number] - [facility] ALLERGEN, INTERP, IMMUNOCAP SCORE IGE See Note Normal [id number] [facility] ALLERGEN, FOOD, MILK (COW) IGE <0.10 Normal [id number] - [facility] ALLERGEN, FOOD, CRAB IGE <0.10 Normal [id number] - [facility] ALLERGEN, FOOD, RYE IGE <0.10 Normal [id number] - [facility] ALLERGEN, FOOD, CABBAGE IGE <0.10 Normal [id number] - [facility] ALLERGEN, FOOD, TOMATO IGE <0.10 Normal [id number] - [facility] ALLERGEN, FOOD, PEANUT IGE <0.10 Normal [id number] - [facility] ALLERGEN, FOOD, OAT IGE <0.10 Normal [id number] - [facility] ALLERGEN, FOOD, SHRIMP IGE <0.10 Normal [id number] - [facility] ALLERGEN, FOOD, CORN IGE <0.10 Normal [id number] - [facility] ALLERGEN, FOOD, RICE IGE <0.10 Normal [id number] - [facility] ALLERGEN, FOOD, GRAPE IGE <0.10 Normal [id number] - [facility] ALLERGEN, FOOD, LETTUCE IGE <0.10 Normal [id number] - [facility] ALLERGEN, FOOD, PORK IGE <0.10 Normal [id number] - [facility] ALLERGEN, FOOD, [place] IGE <0.10 Normal [id number] - [facility] ALLERGEN, FOOD, POTATO IGE <0.10 Normal [id number] - [facility] ALLERGEN, FOOD, CARROT IGE <0.10 Normal [id number] - [facility] ALLERGEN, FOOD, BARLEY IGE <0.10 Normal [id number] - [facility] ALLERGEN, FOOD, CODFISH IGE <0.10 Normal [id number] - [facility] ALLERGEN, FOOD, EGG WHITE IGE <0.10 Normal [id number] - [facility] ALLERGEN, FOOD, WHEAT IGE <0.10 Normal [id number] - [facility] ALLERGEN, FOOD, CHICKEN IGE <0.10 Normal - [facility] ALLERGEN, FOOD, SOYBEAN IGE <0.10 Normal - [facility] ALLERGEN, FOOD, BEEF IGE <0.10 Normal - [facility] CREATININE 1.1mg/dL Normal [id number] 0.6 - 1.2 [facility] POTASSIUM 5.2mmol/L Above high normal 3.6 - 5.1 [facility] BICARBONATE 29mmol/L Normal [id number] 23 - 32 [facility] GLOMERULAR FILTRATION RATE ML/MIN/1.73 SQ M.PREDICTED 71mL/min/1.73m*2 Normal 60 - [facility] SODIUM 143mmol/L Normal 137 - 144 [facility] CHLORIDE 104mmol/L Normal [id number] 100 - 111 [facility] CALCIUM, TOTAL 10.2mg/dL Normal 8.4 - 10.2 [facility] UREA NITROGEN 13mg/dL Normal [id number] 8 - 24 [facility] ANION GAP 10mmol/L Normal [id number] 3 - 11 [facility] GLUCOSE 91mg/dL Normal [id number] 70 - 200 [facility] RBC DISTRIBUTION WIDTH 12.4% Normal 11.6 - 14.8 [facility] AUTO NRBC % 0% Normal [id number] 0 - [address] [facility] [address] 4.510*3/uL Normal [id number] 1.4 - 6.[address] [facility] [address] 0.710*3/uL Normal 0.2 - 0.8 [facility] MCHC 33.3g/dL Normal [id number] 32 - 36 [facility] MCH 31.9pg Normal [id number] 26 - 34 [facility] IMMATURE GRANULOCYTE % 0.4% Normal 0 - 0.6 [facility] EOSINOPHIL % 4.4% Normal [id number] 0 - 6 [facility] [address] 0.110*3/uL Normal [id number] 0 - 0 .2 [facility] MCV 95.7fL Normal [id number] 80 - 100 [facility] PLATELET COUNT 98795*3/uL Normal [id number] 150 - 440 [facility] BASOPHILS % 0.7% Normal [id number] 0 - [address] [facility] [address] 2.810*3/uL Normal [id number] 0.7 - 4.[address] [facility] [address] 0.410*3/uL Above high normal [id number] 0 - 0.3 [facility] HEMATOCRIT 46.8% Normal [id number] 40 - 52 [facility] WHITE CELL COUNT 8.410*3/uL Normal [id number] 3.8 - 10.6 [facility] RED CELL COUNT 4.8910*6/???L Normal [id number] 4.4 - 5. 9 [facility] MONOCYTE % 7.8% Normal [id number] 4 - 12 [facility] NEUTROPHIL % 53.8% Normal [id number] 40 - 70 [facility] HEMOGLOBIN 15.6g/dL Normal [id number] 13 - 18 [facility] LYMPHOCYTE % 32.9% Normal [id number] 20 - 50 [facility] GLUCOSE QUAL Negative Normal [id number] - [facility] COLOR OF URINE Yellow Normal [id number] - [facility] BILIRUBIN, URINE Negative Normal [id number] - [facility] CLARITY OF URINE Clear Normal [id number] - [facility] PROTEIN QUAL Negative Normal [id number] - [facility] LEUKOCYTE ESTERASE Negative Normal [id number] - [facility] PH OF URINE 6.5 Normal [id number] 5 - 8 [facility] KETONES URINE Negative Normal [id number] - [facility] HEMOGLOBIN, URINE Negative Normal [id number] - [facility] UROBILINOGEN, URINE 0.2EU/dL Normal [id number] 0.2 - 1 [facility] NITRITE Negative Normal [id number] - [facility] SPECIFIC GRAVITY 1.015 Normal [id number] - [facility] ACANTHOCYTES 1+ Normal [id number] [facility] OVALOCYTES 2+ Normal [id number] [facility] BERNICE CELLS 2+ Normal [id number] [facility] RBC MORPHOLOGY (STATUS) Present Normal 516415230922 [facility] EOSINOPHILS 3% Normal [id number] 0 - 6 [facility] BASOPHILS 1% Normal [id number] 0 - [address] [facility] [address] 0.210*3/uL Normal 0 - 0.3 [facility] NEUTROPHILS 57% Normal 40 - 70 [facility] LYMPHOCYTES 36% Normal 20 - 50 [facility] MONOCYTES 3% Below low normal 4 - [address] [facility] [address] 0.110*3/uL Normal [id number] 0 - 0 .[address] [facility] [address] 0.210*3/uL Normal [id number] 0.2 - 0.8 [facility] CELLS COUNTED TOTAL (#) IN BLOOD 114 Normal [facility] ABSOLUTE NEUTROPHIL CT. 4.410*3/uL Normal 1.4 - 6.[address] [facility] [address] 2.810*3/uL Normal 0.7 - 4.5 [facility] HOLD SPECIMEN Normal [facility] RBC DISTRIBUTION WIDTH 12.9% Normal 11.6 - 14.8 [facility] PLATELET COUNT 65759*3/uL Normal 150 - 440 C [facility] MCHC 34.5g/dL Normal 32 - 36 [facility] HEMATOCRIT 41.7% Normal 40 - 52 [facility] WHITE CELL COUNT 7.810*3/uL Normal 3.8 - 10.6 [facility] MCH 32.2pg Normal 26 - 34 [facility] RED CELL COUNT 4.4710*6/???L Normal 4.4 - 5. 9 [facility] MCV 93.3fL Normal 80 - 100 [facility] HEMOGLOBIN 14.4g/dL Normal 13 - 18 [facility] MAGNESIUM 2mg/dL Normal 1.8 - 3 [facility] HOLD SPECIMEN Normal [facility] CREATININE 1.1mg/dL Normal 0.6 - 1.2 [facility] POTASSIUM 4.6mmol/L Normal 3.6 - 5.1 [facility] BICARBONATE 24mmol/L Normal 23 - 32 [facility] GLOMERULAR FILTRATION RATE ML/MIN/1.73 SQ M.PREDICTED 71mL/min/1.73m*2 Normal 60 - [facility] SODIUM 140mmol/L Normal 137 - 144 [facility] CHLORIDE 106mmol/L Normal 100 - 111 [facility] CALCIUM, TOTAL 9.6mg/dL Normal 8.4 - 10.2 [facility] UREA NITROGEN 8mg/dL Normal 8 - 24 [facility] ANION GAP 10mmol/L Normal 3 - 11 [facility] GLUCOSE 156mg/dL Normal 70 - 200 [facility] ETHANOL 10mg/dL Normal [facility] HOLD SPECIMEN BLUE Rb Blue Normal [facility] HOLD SPECIMEN LAV Rb Lav Normal [facility] GLUCOSE QUAL Negative Normal [id number] - [facility] COLOR OF URINE Yellow Normal 554686203065 - [facility] BILIRUBIN, URINE Negative Normal [id number] - [facility] CLARITY OF URINE Clear Normal [id number] - [facility] PROTEIN QUAL Negative Normal [id number] - [facility] LEUKOCYTE ESTERASE Negative Normal [id number] - [facility] PH OF URINE 6.5 Normal [id number] 5 - 8 [facility] KETONES URINE Negative Normal [id number] - [facility] HEMOGLOBIN, URINE Negative Normal [id number] - [facility] UROBILINOGEN, URINE 0.2EU/dL Normal [id number] 0.2 - 1 [facility] NITRITE Negative Normal [id number] - [facility] SPECIFIC GRAVITY 1.01 Normal [id number] - [facility] LACTIC ACID 0.8mmol/L Normal [id number] 0.5 - 1.9 [facility] LIPASE 48U/L Normal [id number] 8 - 51 [facility] GLUCOSE QUAL Negative Normal [id number] - [facility] COLOR OF URINE Yellow Normal [id number] - [facility] BILIRUBIN, URINE Negative Normal [id number] - [facility] CLARITY OF URINE Clear Normal [id number] - [facility] PROTEIN QUAL Negative Normal [id number] - [facility] LEUKOCYTE ESTERASE Negative Normal [id number] - [facility] PH OF URINE 6.5 Normal [id number] 5 - 8 [facility] KETONES URINE Negative Normal [id number] - [facility] HEMOGLOBIN, URINE Negative Normal - [facility] UROBILINOGEN, URINE 1EU/dL Normal 0.2 - 1 [facility] NITRITE Negative Normal - [facility] SPECIFIC GRAVITY 1.025 Normal - [facility] LIPASE 43U/L Normal 8 - 51 [facility] FASTING? No Normal [facility] CHOLESTEROL, HDL 70mg/dL Normal [facility] LDL CHOLESTEROL FRIEDWALD CALC 104mg/dL Normal [facility] TRIGLYCERIDE 92mg/dL Normal [facility] CHOLESTEROL, TOTAL 192mg/dL Normal [facility] CREATININE 1.1mg/dL Normal 0.6 - 1.2 [facility] SODIUM 139mmol/L Normal 137 - 144 [facility] CHLORIDE 105mmol/L Normal 100 - 111 [facility] CALCIUM, TOTAL 9.8mg/dL Normal 8.4 - 10.2 [facility] AST (SGOT) 34U/L Normal 17 - 35 [facility] UREA NITROGEN 11mg/dL Normal 8 - 24 [facility] ALBUMIN, AUTOMATED 4.9g/dL Normal 3.8 - 5. 3 [facility] GLUCOSE 100mg/dL Normal 70 - 200 [facility] BICARBONATE 27mmol/L Normal 23 - 32 [facility] POTASSIUM 5mmol/L Normal 3.6 - 5.1 [facility] GLOMERULAR FILTRATION RATE ML/MIN/1.73 SQ M.PREDICTED 71mL/min/1.73m*2 Normal 60 - [facility] ALT (SGPT) 23U/L Normal 8 - 39 [facility] PROTEIN TOTAL 7.3g/dL Normal 6.2 - 8.1 [facility] BILIRUBIN, TOTAL 1.1mg/dL Normal 0.1 - 1.2 [facility] ALKALINE PHOSPHATASE 77U/L Normal 39 - 1 13 [facility] ANION GAP 7mmol/L Normal [id number] 3 - 11 [facility] ALT (SGPT) 23U/L Normal [id number] 8 - 39 [facility] PROTEIN TOTAL 7.3g/dL Normal [id number] 6.2 - 8.1 [facility] AST (SGOT) 34U/L Normal 17 - 35 [facility] BILIRUBIN, TOTAL 1.1mg/dL Normal [id number] 0.1 - 1.2 [facility] ALKALINE PHOSPHATASE 77U/L Normal 39 - 1 13 [facility] BILIRUBIN, DIRECT 0.4mg/dL Normal [id number] 0 - 0.5 [facility] ALBUMIN, AUTOMATED 4.9g/dL Normal [id number] 3.8 - 5. 3 [facility] RBC DISTRIBUTION WIDTH 12.9% Normal [id number] 11.6 - 14.8 [facility] AUTO NRBC % 0% Normal [id number] 0 - [address] [facility] [address] 510*3/uL Normal [id number] 1.4 - 6.[address] [facility] [address] 0.710*3/uL Normal [id number] 0.2 - 0.8 [facility] MCHC 34g/dL Normal [id number] 32 - 36 [facility] MCH 32.2pg Normal [id number] 26 - 34 [facility] IMMATURE GRANULOCYTE % 0.2% Normal [id number] 0 - 0.6 [facility] EOSINOPHIL % 3.4% Normal [id number] 0 - 6 [facility] [address] 0.110*3/uL Normal [id number] 0 - 0 .2 [facility] MCV 94.7fL Normal [id number] 80 - 100 [facility] PLATELET COUNT 90221*3/uL Normal [id number] 150 - 440 C [facility] BASOPHILS % 0.7% Normal [id number] 0 - [address] [facility] [address]. 2.410*3/uL Normal [id number] 0.7 - 4.[address] [facility] [address] 0.310*3/uL Normal [id number] 0 - 0.3 [facility] HEMATOCRIT 46.8% Normal [id number] 40 - 52 [facility] WHITE CELL COUNT 8.510*3/uL Normal [id number] 3.8 - 10.6 [facility] RED CELL COUNT 4.9410*6/???L Normal 4.4 - 5. 9 [facility] MONOCYTE % 8.5% Normal 4 - 12 [facility] NEUTROPHIL % 59.2% Normal 40 - 70 [facility] HEMOGLOBIN 15.9g/dL Normal 13 - 18 [facility] LYMPHOCYTE % 28% Normal 20 - 50 [facility] MAGNESIUM 2.2mg/dL Normal 1.8 - 3 [facility] CREATININE 1.3mg/dL Above high normal 0.6 - 1. 2 [facility] SODIUM 141mmol/L Normal 137 - 144 [facility] CHLORIDE 106mmol/L Normal 100 - 111 [facility] CALCIUM, TOTAL 9.6mg/dL Normal 8.4 - 10.2 [facility] AST (SGOT) 32U/L Normal 17 - 35 [facility] UREA NITROGEN 15mg/dL Normal 8 - 24 [facility] ALBUMIN, AUTOMATED 4.5g/dL Normal 3.8 - 5. 3 [facility] GLUCOSE 91mg/dL Normal 70 - 200 [facility] BICARBONATE 27mmol/L Normal 23 - 32 [facility] POTASSIUM 5.5mmol/L Above high normal 3.6 - 5.1 [facility] GLOMERULAR FILTRATION RATE ML/MIN/1.73 SQ M.PREDICTED 58mL/min/1.73m*2 Below low normal 60 - [facility] ALT (SGPT) 28U/L Normal 8 - 39 [facility] PROTEIN TOTAL 6.7g/dL Normal [id number] 6.2 - 8.1 [facility] BILIRUBIN, TOTAL 0.5mg/dL Normal 0.1 - 1.2 [facility] ALKALINE PHOSPHATASE 105U/L Normal 39 - 1 13 [facility] ANION GAP 8mmol/L Normal [id number] 3 - 11 [facility] THYROID STIM HORMONE 0.73uIU/mL Normal [id number] 0. 35 - 4.94 [facility] RBC DISTRIBUTION WIDTH 13.1% Normal [id number] 11.6 - 14.8 [facility] PLATELET COUNT 44390*3/uL Normal [id number] 150 - 440 [facility] AUTO NRBC % 0% Normal [id number] 0 - 0 [facility] MCHC 33.3g/dL Normal 32 - 36 [facility] HEMATOCRIT 42% Normal [id number] 40 - 52 [facility] WHITE CELL COUNT 7.510*3/uL Normal [id number] 3.8 - 10.6 [facility] MCH 31.9pg Normal 26 - 34 [facility] RED CELL COUNT 4.3910*6/???L Below low normal 4 .4 - 5.9 [facility] MCV 95.7fL Normal [id number] 80 - 100 [facility] HEMOGLOBIN 14g/dL Normal [id number] 13 - 18 [facility] ETHANOL 19mg/dL Normal [id number] [facility] RBC DISTRIBUTION WIDTH 12.7% Normal 11.6 - 14.8 [facility] AUTO NRBC % 0% Normal 0 - [address] [facility] [address] 5.710*3/uL Normal [id number] 1.4 - 6.[address] [facility] [address] 0.710*3/uL Normal [id number] 0.2 - 0.8 [facility] MCHC 33.3g/dL Normal [id number] 32 - 36 [facility] MCH 30.6pg Normal [id number] 26 - 34 [facility] IMMATURE GRANULOCYTE % 0.2% Normal [id number] 0 - 0.6 [facility] EOSINOPHIL % 2.3% Normal [id number] 0 - 6 [facility] ABS[address] 0.110*3/uL Normal [id number] 0 - 0 .2 [facility] MCV 92fL Normal [id number] 80 - 100 [facility] PLATELET COUNT 87753*3/uL Normal [id number] 150 - 440 C [facility] BASOPHILS % 0.6% Normal [id number] 0 - [address] [facility] [address] 2.910*3/uL Normal [id number] 0.7 - 4.[address] [facility] [address] 0.210*3/uL Normal 0 - 0.3 [facility] HEMATOCRIT 43.6% Normal 40 - 52 [facility] WHITE CELL COUNT 9.710*3/uL Normal [id number] 3.8 - 10.6 [facility] RED CELL COUNT 4.7410*6/???L Normal [id number] 4.4 - 5. 9 [facility] MONOCYTE % 7.5% Normal 4 - 12 [facility] NEUTROPHIL % 59% Normal 40 - 70 [facility] HEMOGLOBIN 14.5g/dL Normal 13 - 18 [facility] LYMPHOCYTE % 30.4% Normal 20 - 50 [facility] MAGNESIUM 1.9mg/dL Normal 1.8 - 3 [facility] ALT (SGPT) 22U/L Normal 8 - 39 [facility] PROTEIN TOTAL 6.9g/dL Normal [id number] 6.2 - 8.1 [facility] AST (SGOT) 30U/L Normal 17 - 35 [facility] BILIRUBIN, TOTAL 0.7mg/dL Normal 0.1 - 1.2 [facility] ALKALINE PHOSPHATASE 77U/L Normal [id number] 39 - 1 13 [facility] BILIRUBIN, DIRECT 0.2mg/dL Normal 0 - 0.5 [facility] ALBUMIN, AUTOMATED 4.6g/dL Normal 3.8 - 5. 3 [facility] CREATININE 1.2mg/dL Normal [id number] 0.6 - 1.2 [facility] POTASSIUM 5mmol/L Normal [id number] 3.6 - 5.1 [facility] BICARBONATE 27mmol/L Normal 23 - 32 [facility] GLOMERULAR FILTRATION RATE ML/MIN/1.73 SQ M.PREDICTED 64mL/min/1.73m*2 Normal 60 - [facility] SODIUM 142mmol/L Normal 137 - 144 [facility] CHLORIDE 105mmol/L Normal 100 - 111 [facility] CALCIUM, TOTAL 9.5mg/dL Normal 8.4 - 10.2 [facility] UREA NITROGEN 10mg/dL Normal 8 - 24 [facility] ANION GAP 10mmol/L Normal 3 - 11 [facility] GLUCOSE 87mg/dL Normal 70 - 200 [facility] LACTIC ACID 2.4mmol/L Above high normal 0.5 - 1 .9 [facility] TROPONIN I 0.01ng/mL Normal - [facility] LIPASE 43U/L Normal 8 - 51 [facility] CANNABINOID Positive Abnormal - [facility] OPIATES, URINE Negative Normal - [facility] COCAINE METABOLITES URINE Negative Normal - [facility] BENZODIAZEPINE, URINE Negative Normal - [facility] GLUCOSE QUAL Negative Normal [id number] - [facility] COLOR OF URINE Yellow Normal - [facility] BILIRUBIN, URINE Negative Normal - [facility] CLARITY OF URINE Clear Normal - [facility] PROTEIN QUAL Negative Normal [id number] - [facility] LEUKOCYTE ESTERASE Negative Normal - [facility] PH OF URINE 6 Normal 5 - 8 [facility] KETONES URINE Negative Normal [id number] - [facility] HEMOGLOBIN, URINE Negative Normal - [facility] UROBILINOGEN, URINE 0.2EU/dL Normal 0.2 - 1 [facility] NITRITE Negative Normal - [facility] SPECIFIC GRAVITY 1.01 Normal [id number] - [facility] LYME DISEASE AB, TOTAL Negative Normal [id number] - [facility] SYPHILIS SCREEN Nonreactive Normal [id number] - [facility] FOLATE 14.4ng/mL Normal 7 - 31.4 [facility] VITAMIN D, 25H 29ng/mL Below low normal [id number] - [facility] VITAMIN B12 468pg/mL Normal [id number] [facility] PLESIOMONAS SHIGELLOIDES PCR Not Detected Normal [facility] VIBRIO PCR Not Detected Normal [id number] [facility] CAMPYLOBACTER PCR Not Detected Normal [id number] [facility] ENTEROAGGREGATIVE E. COLI (EAEC) PCR Not Detected Normal [id number] [facility] E. COLI O157 PCR N/A Normal [id number] [facility] SHIGELLA/ENTEROINVASIV E E. COLI PCR Not Detected Normal [id number] [facility] ROTAVIRUS A PCR Not Detected Normal [id number] [facility] CRYPTOSPORIDIUM PCR Not Detected Normal [id number] [facility] YERSINIA ENTEROCOLITICA PCR Not Detected Normal [id number] [facility] ADENOVIRUS 40/41 PCR Not Detected Normal [id number] [facility] SALMONELLA PCR Not Detected Normal [id number] [facility] SAPOVIRUS PCR Not Detected Normal [id number] [facility] GIARDIA LAMBLIA PCR Not Detected Normal [id number] [facility] CYCLOSPORA CAYETANENSIS PCR Not Detected Normal [id number] [facility] NOROVIRUS GI/GII PCR Not Detected Normal [id number] [facility] ENTEROTOXIGENIC E. COLI (ETEC) PCR Not Detected Normal [id number] [facility] ASTROVIRUS PCR Not Detected Normal [id number] [facility] ENTEROPATHOGENIC E. COLI (EPEC) PCR Not Detected Normal [id number] [facility] VIBRIO CHOLERAE PCR Not Detected Normal [id number] [facility] SHIGA TOXIN-PRODUCING E. COLI (STEC) PCR Not Detected Normal [id number] [facility] ENTAMOEBA HISTOLYTICA PCR Not Detected Normal [id number] [facility] IMMUNOGLOBULIN A 212mg/dL Normal [id number] 82 - 460 [facility] TISSUE TRANS IGA <1.02 Normal [id number] 0 - 4.99 [facility] GYCOHEMOGLOBIN A1C 5.2% Normal [id number] 4.4 - 6. 4 [facility] RBC 0-2 Normal [id number] 0 - 2 [facility] COLOR OF URINE Yellow Normal [id number] - [facility] BACTERIA None Seen Normal [id number] - [facility] LEUKOCYTE ESTERASE Trace Abnormal [id number] - [facility] EPITHELIAL CELLS None Seen Normal [id number] - [facility] PH OF URINE 5.5 Normal [id number] 5 - 8 [facility] KETONES URINE Negative Normal [id number] - [facility] UROBILINOGEN, URINE 0.2EU/dL Normal [id number] 0.2 - 1 [facility] NITRITE Negative Normal [id number] - [facility] GLUCOSE QUAL Negative Normal [id number] - [facility] BILIRUBIN, URINE Negative Normal [id number] - [facility] CLARITY OF URINE Clear Normal - [facility] PROTEIN QUAL Negative Normal [id number] - [facility] HEMOGLOBIN, URINE Negative Normal - [facility] WBC 0-5 Normal [id number] 0 - 5 [facility] SYSMEX CASTS 0-2 Normal [id number] - [facility] SPECIFIC GRAVITY 1.015 Normal - [facility] FASTING? No Normal [facility] CHOLESTEROL, HDL 52mg/dL Normal [id number] [facility] LDL CHOLESTEROL FRIEDWALD CALC 61mg/dL Normal [id number] [facility] TRIGLYCERIDE 83mg/dL Normal [id number] [facility] CHOLESTEROL, TOTAL 130mg/dL Normal [id number] [facility] HEPATITIS C ANTIBODY (IA5) Negative Normal - [facility] PSA SCREENING TEST 1.7ng/mL Normal 0 - 4 [facility] HIV 1+2 AB + HIV1 P24 AG (PRESENCE) IN SERUM BY IMMUNOASSAY Negative Normal - [facility] RBC DISTRIBUTION WIDTH 12.7% Normal 11.6 - 14.8 [facility] AUTO NRBC % 0% Normal 0 - [address] [facility] [address]. 6.410*3/uL Above high normal 1.4 - 6.[address] [facility] [address] 0.610*3/uL Normal 0.2 - 0.8 [facility] MCHC 33.7g/dL Normal 32 - 36 [facility] MCH 31.5pg Normal 26 - 34 [facility] IMMATURE GRANULOCYTE % 0.2% Normal 0 - 0.6 [facility] EOSINOPHIL % 2% Normal 0 - 6 [facility] [address] 010*3/uL Normal 0 - 0. 2 [facility] MCV 93.3fL Normal 80 - 100 [facility] PLATELET COUNT 99618*3/uL Normal 150 - 440 [facility] BASOPHILS % 0.4% Normal 0 - [address] [facility] [address] 1.910*3/uL Normal 0.7 - 4.[address] [facility] [address] 0.210*3/uL Normal 0 - 0.3 [facility] HEMATOCRIT 42.1% Normal 40 - 52 [facility] WHITE CELL COUNT 9.210*3/uL Normal 3.8 - 10.6 [facility] RED CELL COUNT 4.5110*6/???L Normal 4.4 - 5. 9 [facility] MONOCYTE % 6.4% Normal 4 - 12 [facility] NEUTROPHIL % 70.1% Above high normal 40 - 7 0 [facility] HEMOGLOBIN 14.2g/dL Normal 13 - 18 [facility] LYMPHOCYTE % 20.9% Normal 20 - 50 [facility] CREATININE 1mg/dL Normal 0.6 - 1.2 [facility] SODIUM 140mmol/L Normal 137 - 144 [facility] CHLORIDE 108mmol/L Normal 100 - 111 [facility] CALCIUM, TOTAL 9.5mg/dL Normal 8.4 - 10.2 [facility] AST (SGOT) 25U/L Normal 17 - 35 [facility] UREA NITROGEN 11mg/dL Normal 8 - 24 [facility] ALBUMIN, AUTOMATED 4.5g/dL Normal 3.8 - 5. 3 [facility] GLUCOSE 86mg/dL Normal 70 - 200 [facility] BICARBONATE 24mmol/L Normal 23 - 32 [facility] POTASSIUM 4.2mmol/L Normal 3.6 - 5.1 [facility] GLOMERULAR FILTRATION RATE ML/MIN/1.73 SQ M.PREDICTED 80mL/min/1.73m*2 Normal 60 - [facility] ALT (SGPT) 17U/L Normal 8 - 39 [facility] PROTEIN TOTAL 6.8g/dL Normal 6.2 - 8.1 [facility] BILIRUBIN, TOTAL 1mg/dL Normal 0.1 - 1.2 [facility] ALKALINE PHOSPHATASE 75U/L Normal 39 - 1 13 [facility] ANION GAP 8mmol/L Normal 3 - 11 [facility] MAGNESIUM 1.9mg/dL Normal [id number] 1.8 - 3 [facility] NATRIURETIC PEPTIDE B (BNP) 12pg/mL Normal 0 - 100 [facility] OVA AND PARASITE CONCENTRATION QUANTITY No Ova and Parasite seen Normal [id number] - [facility] TRICHROME STAIN QUANITY No Ova and Parasite seen Normal [id number] - [facility] LEUKOCYTES PRESENCE IN STOOL BY LIGHT MICROSCOPY No WBCs seen Normal [facility] FAT, FECAL - NEUTRAL Normal Normal - [facility] FAT, FECAL - SPLIT Normal Normal [id number] - [facility] TISSUE TRANS IGA <1.02 Normal [id number] 0 - 4.99 [facility] IMMUNOGLOBULIN A 219mg/dL Normal 82 - 460 [facility] THYROID STIM HORMONE 1.86uIU/mL Normal [id number] 0. 35 - 4.94 [facility] TROPONIN I 0.01ng/mL Normal - [facility] RBC DISTRIBUTION WIDTH 13.7% Normal 11.6 - 14.8 [facility] AUTO NRBC % 0% Normal 0 - [address] [facility] [address] 4.510*3/uL Normal 1.4 - 6.3 [facility] ABSOLUTE [facility]TE CT. 0.710*3/uL Normal 0.2 - 0.8 [facility] MCHC 34.4g/dL Normal 32 - 36 [facility] MCH 31.3pg Normal 26 - 34 [facility] IMMATURE GRANULOCYTE % 0.3% Normal 0 - 0.6 [facility] EOSINOPHIL % 1.7% Normal 0 - 6 [facility] [address] 010*3/uL Normal [id number] 0 - 0. 2 [facility] MCV 91fL Normal 80 - 100 [facility] PLATELET COUNT 61751*3/uL Normal [id number] 150 - 440 C [facility] BASOPHILS % 0.3% Normal [id number] 0 - [address] [facility] [address] 1.810*3/uL Normal [id number] 0.7 - 4.[address] [facility] [address] 0.110*3/uL Normal [id number] 0 - 0.3 [facility] HEMATOCRIT 43.3% Normal [id number] 40 - 52 [facility] WHITE CELL COUNT 7.110*3/uL Normal [id number] 3.8 - 10.6 [facility] RED CELL COUNT 4.7610*6/???L Normal [id number] 4.4 - 5. 9 [facility] MONOCYTE % 9.2% Normal [id number] 4 - 12 [facility] NEUTROPHIL % 63% Normal [id number] 40 - 70 [facility] HEMOGLOBIN 14.9g/dL Normal [id number] 13 - 18 [facility] LYMPHOCYTE % 25.5% Normal [id number] 20 - 50 [facility] CREATININE 1mg/dL Normal [id number] 0.6 - 1.2 [facility] SODIUM 141mmol/L Normal [id number] 137 - 144 [facility] CHLORIDE 109mmol/L Normal [id number] 100 - 111 [facility] CALCIUM, TOTAL 9.6mg/dL Normal [id number] 8.4 - 10.2 [facility] AST (SGOT) 30U/L Normal [id number] 17 - 35 [facility] UREA NITROGEN 9mg/dL Normal [id number] 8 - 24 [facility] ALBUMIN, AUTOMATED 4.3g/dL Normal [id number] 3.8 - 5. 3 [facility] GLUCOSE 99mg/dL Normal [id number] 70 - 200 [facility] BICARBONATE 22mmol/L Below low normal [id number] 23 - 32 [facility] POTASSIUM 4.3mmol/L Normal [id number] 3.6 - 5.1 [facility] GLOMERULAR FILTRATION RATE ML/MIN/1.73 SQ M.PREDICTED 80mL/min/1.73m*2 Normal [id number] 60 - [facility] ALT (SGPT) 19U/L Normal [id number] 8 - 39 [facility] PROTEIN TOTAL 6.9g/dL Normal [id number] 6.2 - 8.1 [facility] BILIRUBIN, TOTAL 1mg/dL Normal [id number] 0.1 - 1.2 [facility] ALKALINE PHOSPHATASE 65U/L Normal [id number] 39 - 1 13 [facility] ANION GAP 10mmol/L Normal [id number] 3 - 11 [facility] CREATININE 1.1mg/dL Normal [id number] 0.6 - 1.2 [facility] POTASSIUM 5.2mmol/L Above high normal 3.6 - 5.1 [facility] BICARBONATE 28mmol/L Normal [id number] 23 - 32 [facility] GLOMERULAR FILTRATION RATE ML/MIN/1.73 SQ M.PREDICTED 72mL/min/1.73m*2 Normal [id number] 60 - [facility] SODIUM 144mmol/L Normal [id number] 137 - 144 [facility] CHLORIDE 109mmol/L Normal [id number] 100 - 111 [facility] CALCIUM, TOTAL 9.8mg/dL Normal 8.4 - 10.2 [facility] UREA NITROGEN 13mg/dL Normal [id number] 8 - 24 [facility] ANION GAP 7mmol/L Normal 3 - 11 [facility] GLUCOSE 98mg/dL Normal [id number] 70 - 200 [facility] RBC DISTRIBUTION WIDTH 12.6% Normal [id number] 11.6 - 14.8 [facility] PLATELET COUNT 33455*3/uL Normal [id number] 150 - 440 C [facility] MCHC 33.4g/dL Normal [id number] 32 - 36 [facility] HEMATOCRIT 42.8% Normal [id number] 40 - 52 [facility] WHITE CELL COUNT 8.510*3/uL Normal [id number] 3.8 - 10.6 [facility] MCH 31.6pg Normal [id number] 26 - 34 [facility] RED CELL COUNT 4.5210*6/???L Normal [id number] 4.4 - 5. 9 [facility] MCV 94.7fL Normal [id number] 80 - 100 [facility] HEMOGLOBIN 14.3g/dL Normal [id number] 13 - 18 [facility] MAGNESIUM 2mg/dL Normal [id number] 1.8 - 3 [facility] History of Medication Use Medication Directions Dispensed Refills Start Date End Date [facility] acetaminophen (TylenoL) 325 mg tablet Take 650 mg by mouth Every 6 (six) hours. 06/21/2024 active ibuprofen 600 mg tablet Take 1 tablet (600 mg total) by mouth Every 6 (six) hours for 10 days. 06/21/2024 07/02/2024 active esomeprazole (NexIUM) 20 mg capsule Take 1 capsule (20 mg total) by mouth Daily before breakfast. 06/01/2024 active OLANZapine (ZyPREXA) 2.5 mg tablet TAKE HALF TABLET BY MOUTH NIGHTLY. IF TOLERATED MAY TAKE 1 FULL TABLET NIGHTLY AFTER 1 TO 2 NIGHTS 12/27/2023 02/29/2024 active naproxen (NAPROSYN) 500 MG tablet TAKE 1 TABLET BY MOUTH EVERY 12 HOURS NEEDED 09/07/2022 active atorvastatin calcium (ATORVASTATIN ORAL) Take 80 mg by mouth Daily after dinner. active mirtazapine 7.5 mg tablet Take 1 tablet (7.5 mg total) by mouth nightly. 07/23/2023 08/23/2023 active psyllium (Metamucil, with sugar,) 3.4 gram packet Take 1 packet by mouth in the morning and 1 packet before bedtime. 09/24/2023 active polyethylene glycol-electrolytes (NULYTELY) 420 gram solution Take 4,000 mL by mouth once for 1 dose. 09/24/2023 09/25/2023 active mirtazapine 7.5 mg tablet Take 1 tab by mouth nightly for 15 nights then increase to 15 mg dose 09/15/2023 10/19/2023 active hydrOXYzine (ATARAX) 25 mg tablet Take 1 tablet (25 mg total) by mouth nightly as needed for itching for up to 10 days. 08/05/2023 10/19/2023 active vilazodone 10 mg tablet Take 1 tablet by mouth in the morning. 03/21/2024 active zolpidem (AMBIEN) 10 mg tablet Take 1 tablet (10 mg total) by mouth nightly as needed for insomnia. 02/25/2024 04/17/2024 active vilazodone 20 mg tablet Take 1 tab by mouth daily 03/31/2024 active MAGNESIUM GLYCINATE ORAL Take 500 mg by mouth in the morning. active zolpidem (AMBIEN) 5 mg tablet TAKE 1 TABLET BY MOUTH NIGHTLY NEEDED FOR INSOMNIA. 01/19/2024 active psyllium (METAMUCIL) 3.4 gram packet 1 packet 09/24/2023 09/24/2023 aborted KATHYA EXTRACT ORAL Take 600 mg by mouth in the morning. active tamsulosin (FLOMAX) capsule Take 1 capsule (0.4 mg total) by mouth in the morning. 02/01/2024 active coenzyme Q10 100 mg capsule Take 100 mg by mouth daily. active tadalafiL (CIALIS) 20 mg tablet TAKE ONE TABLET BY MOUTH DAILY NEEDED. NO MORE THAN 20MG IN 24 HOURS. 01/11/2023 02/22/2024 active Problems Problem Status Onset Date Problem Type Date of Resolution Source Abnormal computed tomography of abdomen and pelvis active 2024-02-25 ProblemAct [facility] GERD (gastroesophageal reflux disease) active 2013-06-13 ProblemAct [facility] Secondary hypercoagulable state active 2023-10-07 ProblemAct [facility] Anxiety active 2023-08-05 ProblemAct [facility] Atherosclerosis of aorta active 2023-10-07 ProblemAct [facility] RLQ abdominal pain active 2024-02-25 ProblemAct [facility] Screening for malignant neoplasm of colon active 2023-09-24 ProblemAct [facility] History of alcohol use disorder active 2019-05-24 ProblemAct [facility] Other insomnia active 2023-08-05 ProblemAct [facility] Hot flashes active 2024-05-24 ProblemAct [facility] Dysphagia active 2013-06-13 ProblemAct [facility] Atrial fibrillation with RVR active 2019-05-23 ProblemAct [facility] Inguinal hernia active 2013-06-[address] [facility] High cholesterol active ProblemAct [facility] Primary osteoarthritis of left knee active EncounterDiagnosisAct [facility] Functional diarrhea active 2023-09-24 ProblemAct [facility] Immunizations Vaccine Date Source Lot Number Status Influenza Vaccine 65y and older 12/17/2021 [facility] [id number] completed RSV Recombinant 04/05/2023 [facility] [id number] completed Influenza, Unspecified 06/07/2013 [facility] co mpleted Influenza Vaccine, Quadrivalent, Adjuvanted 01/15/2023 [facility] [id number] completed Influenza, High Dose Seasonal 12/28/2023 [facility] [id number] completed PNEUMOCOCCAL CONJUGATE PCV-20 12/17/2021 [facility] [id number] completed Tdap 12/28/2023 [facility] [id number] completed Encounters Encounter Type Encounter Reason Primary Diagnosis Location Date Ambulatory Post-op Hernia Post-op Hernia [facility] 06/18 Ambulatory Atherosclerotic hear t disease of [place] Atherosclerotic heart disease of [place] coronary artery without angina pectoris [facility] 07/05/2024 Ambulatory Encounter for antibo dy response examinat Encounter for antibody response examination [facility] 06/20/2024 Ambulatory [facility] 06/19/2024 Ambulatory Unilateral inguinal hernia, without obst Unilateral inguinal hernia, without obstruction or gangrene, not specified as recurrent [facility] 06/13/2024 Ambulatory [place] [facility] 06/12/2024 Ambulatory Other specified abnormal immunological f Other specified abnormal immunological findings in serum [facility] 06/12/2024 Ambulatory Other fatigue Other fatigue [facility] 2024 Ambulatory Encounter for other preprocedural examin Encounter for other preprocedural examination [facility] 06/06/2024 Ambulatory Unilateral inguinal hernia, without obst Unilateral inguinal hernia, without obstruction or gangrene, not specified as recurrent [facility] 05/23/2024 Ambulatory [place] [facility] 05/23/2024 Ambulatory [facility] 04/07/2024 Ambulatory Unilateral inguinal hernia, without obst Unilateral inguinal hernia, without obstruction or gangrene, not specified as recurrent [facility] 03/09/2024 Emergency Dizziness and giddiness Dizziness and giddiness [facility] 02/27/2024 Emergency Unilateral inguinal hernia, without obst Unilateral inguinal hernia, without obstruction or gangrene, not specified as recurrent [facility] 02/26/2024 Ambulatory Abnormal findings on diagnostic imaging Abnormal findings on diagnostic imaging of other abdominal regions, including retroperitoneum [facility] 02/25/2024 Emergency Right lower quadrant pain Right lower quadrant pain [facility] 02/22/2024 Ambulatory Other specified abnormal findings of blo Other specified abnormal findings of blood chemistry [facility] 02/22/2024 Ambulatory Cramp and spasm Cramp and spasm [facility] Ambulatory Other difficulties with micturition Other difficulties with micturition [facility] 02/04/2024 Ambulatory Cramp and spasm Cramp and spasm [facility] Ambulatory Anxiety disorder, unspecified Anxiety disorder, unspecified [facility] 02/01/2024 Ambulatory Preglaucoma, unspecified, bilateral Preglaucoma, unspecified, bilateral [facility] 01/10/2024 Emergency Tremor, unspecified [facility]remor, unspecified [facility] Ambulatory Atherosclerotic hear t disease of [place] Atherosclerotic heart disease of [place] coronary artery without angina pectoris [facility] 10/25/2023 Ambulatory Atherosclerotic hear t disease of [place] Atherosclerotic heart disease of [place] coronary artery without angina pectoris [facility] 10/25/2023 Ambulatory Other fatigue Other fatigue [facility] 2023 Ambulatory Anxiety disorder, unspecified Anxiety disorder, unspecified [facility] 10/19/2023 Ambulatory Functional diarrhea Functional [facility] 09/29/[facility]23 Ambulatory Functional diarrhea Functional diarrhea [facility]24[facility]23 Ambulatory Functional diarrhea [facility]/24[facility]2023 Ambulatory Functional diarrhea Functional diarrhea [facility] 09/24/2023 Ambulatory Encounter for genera l adult medical exam Encounter for general adult medical examination without abnormal findings [facility] 09/17/2023 Ambulatory Atherosclerotic hear t disease of [place] Atherosclerotic heart disease of [place] coronary artery without angina pectoris [facility] 09/17/2023 Emergency Palpitations Palpitations [facility] 09/08/19 Ambulatory Personal history of nicotine dependence Personal history of nicotine dependence [facility] 08/30/2023 Ambulatory Personal history of nicotine dependence Personal history of nicotine dependence [facility] 08/16/2023 Ambulatory Insomnia Insomnia [facility] 08/05/2023 Ambulatory Noninfective gastroenteritis and colitis Noninfective gastroenteritis and colitis, unspecified [facility] 08/04/2023 Emergency Weakness Weakness [facility] 07/22/2023 Ambulatory Weakness Weakness [facility] 07/22/2023 Ambulatory Persons encountering health services in Persons encountering health services in other specified circumstances [facility] 06/10/2023 Ambulatory Unilateral prima ry osteoarthritis, left knee [id number] 10/08/2022 Emergency Hyperkalemia [facility] 08/14/2022 Care Team Organization Name Specialty Phone Email Start Date End Da tru [facility] 02/27/2024 05/30/2024 [facility] Primary Care [facility] 06/29/2023 [facility] 06/10/2023 [facility] 02/19/2023 [facility]20[facility] 10/08/2022 [facility] PCP,No Primary Care 08/14/2022 [facility] [place] [facility] 023 08/14/2022 [facility] NO PCP Primary Care 08/14/2022
== END 2024-07-20 14:53 | disposition home or self-care (01) ==
LOC: HO.RHE 14:16
PROVIDERS: PCP Internal Medicine; Visit Provider Student in an Organized Health Care Education/Training Program
DX: R53.1 Weakness (principal)
CPT/HCPCS: 99203